=== PATIENT | male | born 1935 | race Caucasian/White ===

== ENCOUNTER 2016-07-08 12:41 | Inpatient (IN) ==
[2016-07-08] MEDS ORDERED: 0.9 % Sodium Chloride 1,000 ML IVC ONE ×2 (13:22→14:51)
--- NOTE | 2016-07-08 13:43 | Emergency Department Note ---
Disposition Clinical Impression: HCAP (healthcare-associated pneumonia), TREASURE (acute kidney injury), Elevated troponin, ST segment changes on electrocardiogram Disposition: Admitted As Inpatient Condition: Good Referrals: Silver Shields MD [Primary Care Provider] - Forms: ED Satisfaction Letter Weakness HPI - General Chief complaint: ED Weakness Stated complaint: Generalized Weakness Time Seen by Provider: 07/08/16 13:14 Source: patient Mode of arrival: private vehicle Limitations: no limitations Nursing Notes Reviewed: Yes Vital Signs Reviewed: Yes - History of Present Illness HPI Narrative: 80-year-old male history of esophageal adenocarcinoma currently under chemotherapy for the last 2 weeks who presents to the ER due to generalized weakness. Patient reports he had his last treatment 2 days ago and has felt unwell ever since. Reports that he has had a runny nose recently. Patient states that he has had no appetite since the chemotherapy. He has been nauseated but no episodes of vomiting. No fevers that he knows of at home. No chest pain. Patient reports he has had one episode of radiation. No sick contacts. No other complaints. Pt Subjective Complaint: generalized weakness/fatigue Onset (ago): day(s) (2) Duration: constant Location: generalized Migration: none Pain Severity: none Pain Scale: 0 Improves with: none Worsens with: none Context: other (Recently started chemotherapy 2 weeks ago) Associated symptoms: Reports: nausea/vomiting. Denies: chest pain, fever/chills , shortness of breath - Related Data Home Medications Medication Instructions Recorded Confirmed Albuterol Sulfate [Albuterol 2 puff IH Q4H PRN 12/08/14 07/08/16 Inhaler] Aspirin Enteric Coated [Aspirin EC] 81 mg PO QAM 12/08/14 07/08/16 Cholecalciferol (Vitamin D3) 2,000 unit PO QAM 12/08/14 07/08/16 [Vitamin D3] Clopidogrel [Plavix] 75 mg PO QAM 12/08/14 07/08/16 Rosuvastatin [Crestor] 10 mg PO QAM 12/08/14 07/08/16 Furosemide [Lasix] 40 mg PO DAILY 09/01/15 07/08/16 Lisinopril [Zestril] 5 mg PO DAILY 09/01/15 07/08/16 Isosorbide MONOnitrate (24 HR) 30 mg PO DAILY 02/25/16 07/08/16 [Imdur] Nitroglycerin 0.4 mg SL Q5MIN PRN 02/25/16 07/08/16 Spironolactone [Aldactone] 12.5 mg PO DAILY 02/25/16 07/08/16 Acetylcysteine 600 mg PO TID 03/25/16 07/08/16 [G-Xvxztr-c-Cysteine] Allopurinol [Zyloprim 300 MG] 100 mg PO DAILY 05/26/16 07/08/16 Budesonide/Formoterol 160/4.5 2 puff IH BIDR 05/26/16 07/08/16 [Symbicort 160/4.5] Omeprazole [PriLOSEC] 20 mg PO BID 05/26/16 07/08/16 Metoprolol [Lopressor] 25 mg PO BID 06/13/16 07/08/16 Sennosides/Docusate Sodium 1 each PO BID 06/13/16 07/08/16 [Senna-S Tablet] Previous Rx's Medication Instructions Recorded Lactose-Reduced Food [Ensure Plus] 1 bottle PO TID #90 can 06/01/16 Magic Mouthwash 10 ml PO Q4H PRN #240 ml 06/15/16 Prochlorperazine Maleate 10 mg PO Q6HR PRN #40 tablet 06/15/16 [Compazine] Lidocaine/Prilocaine CREAM [Emla] 5 gm TP AD #1 tube 06/24/16 Ondansetron [Zofran] 8 mg PO Q8HR PRN #60 tablet 06/24/16 Allergies Allergy/AdvReac Type Severity Reaction Status Date / Time No Known Allergies Allergy Verified 06/23/16 10:54 All systems ED: reviewed and negative except as stated. Constitutional: Reports: weakness. Denies: fever, chills ENT ED: Reports: other (Rhinorrhea) Cardiovascular: Denies: chest pain Respiratory: Denies: cough, dyspnea Gastrointestinal: Reports: nausea. Denies: abdominal pain, vomiting, diarrhea Past Medical History - Past Medical History Attestation: Yes The following information was validated with the patient. Source: patient Medical history: Reports: cancer, cardiomyopathy, CHF, COPD, coronary artery disease, diabetes, GERD, hyperlipidemia, hypertension, myocardial infarction, peripheral artery disease, TIA, valvular heart disease Surgical history: Reports: carotid endarterectomy, coronary bypass (CABG) Psychiatric history: Reports: no psych history - Social History Smoking Status: Current every day smoker Smokeless Tobacco Status: No Alcohol use: Reports: none Drug use: Reports: none Physical Exam - General Limitations: no limitations General appearance: alert, in no apparent distress - Head Head exam: atraumatic, normocephalic, normal inspection - Eye Eye exam: Present: normal appearance, EOMI - ENT ENT exam: normal exam - Neck Neck exam: Present: normal inspection - Chest Chest inspection: Present: normal inspection, symmetric chest wall rise - Respiratory Respiratory exam: Present: normal lung sounds bilaterally - Cardiovascular Cardiovascular exam: Present: regular rate, normal rhythm, normal heart sounds - Abdominal Exam Abdominal exam: Present: soft, Non-Tender. Absent: tenderness - Extremities Exam Extremities exam: Present: normal inspection, full ROM - Expanded Upper Extremity Exam Shoulder exam: Present: normal inspection, full ROM Arm exam: Present: normal inspection, full ROM Elbow exam: Present: normal inspection, full ROM Forearm/Wrist exam: Present: normal inspection, full ROM Hand exam: Present: normal inspection, full ROM - Expanded Lower Extremity Exam Hip/Pelvis exam: Present: normal inspection, full ROM Upper leg exam: Present: normal inspection, full ROM Knee exam: Present: normal inspection, full ROM Lower leg exam: Present: normal inspection, full ROM Ankle exam: Present: normal inspection, full ROM Foot/toe exam: Present: normal inspection, full ROM - Neurological Exam Neurological exam: Present: alert - Psychiatric Psychiatric exam: Present: normal affect, normal mood - Skin Skin exam: Present: warm, dry, intact, normal color Course Course Narrative: Patient seen and examined. Vital signs reviewed. He is slightly hypertensive here. - Reevaluation(s) Reevaluation #1: Discussed results of imaging and lab work with the patient. - Consultations Consultation #1: I spoke with the on-call branch banker Dr. Luevano. Discussed patient's history, EKG findings and troponin level. He reports not to heparinize the patient at this time. Vital Signs Temperature 98.5 F 07/08/16 12:42 Pulse Rate 87 07/08/16 12:42 Respiratory Rate 18 07/08/16 12:42 Blood Pressure 82/49 07/08/16 12:42 O2 Sat by Pulse Oximetry 94 L 07/08/16 12:42 Temperature 98.5 F 07/08/16 12:42 Pulse Rate 97 07/08/16 16:30 Respiratory Rate 18 07/08/16 16:30 Blood Pressure 97/61 07/08/16 16:30 O2 Sat by Pulse Oximetry 98 07/08/16 16:30 Oxygen Delivery Oxygen Delivery Nasal Cannula Weakness - MDM Narrative Medical decision making narrative: 80-year-old male history of esophageal cancer currently on chemotherapy who presents to the ER due to generalized weakness for 2 days in duration. Patient has been slightly hypotensive here as well as tachycardic. Blood pressure was somewhat responsive to IV fluid resuscitation. Chest x-ray shows new opacities concerning for metastatic disease versus multifocal pneumonia. Given his recent weakness runny nose and cough we will treat him for healthcare associated pneumonia. Patient also does have an acute kidney injury with elevation in his creatinine. Patient admitted to the hospitalist service for further management. - Lab Data Lab results reviewed: Yes I reviewed the patient's lab results. Result diagrams: 07/08/16 13:45 07/08/16 13:45 Lab Results 07/08/16 07/08/16 07/08/16 Range/Units 13:45 13:45 13:45 WBC 11.4 H (4.3-11.1) K/mcL RBC 3.66 L (4.19-5.50) M/mcL Hgb 9.7 L (12.9-16.9) g/dL Hct 31.4 L (37.5-50.1) % MCV 85.8 (83.0-100.0) fL MCH 26.5 L (28.0-33.3) pg MCHC 30.9 L (31.6-35.5) g/dL RDW 17.2 H (11.5-14.5) % Plt Count 218 (140-400) K/mcL MPV 11.7 (9.4-12.4) fL Immature Gran % 1.6 (0-4) % Seg Neutrophils % 92.7 % Lymphocytes % 2.6 % Monocytes % 2.3 % Eosinophils % 0.4 % Basophils % 0.4 % Neutrophils # 10.6 H (1.6-8.9) K/mcL Lymphocytes # 0.3 L (0.6-4.6) K/mcL Monocytes # 0.3 (0.0-1.3) K/mcL Eosinophils # 0.1 (0.0-0.6) K/mcL Basophils # 0.1 (0.0-0.2) K/mcL Hyposegmented Neuts Present A (Not Present) Platelet Estimate Normal (Normal) Macrocytosis Present A (Not Present) Sodium 135 L (136-145) mEq/L Potassium 5.1 H (3.5-4.5) mEq/L Chloride 108 (98-109) mEq/L Carbon Dioxide 14 L (19-29) mEq/L BUN 108 H (8-26) mg/dL Creatinine 3.36 H (0.72-1.25) mg/dL Est GFR ( Amer) 22 L (> 60) Est GFR (Non-Af Amer) 18 L (> 60) BUN/Creatinine Ratio 32 H (6-26) Glucose 117 H (70-99) mg/dL Calculated Osmolality 315 H (280-300) Calcium 9.0 (8.6-10.8) mg/dL Total Bilirubin 0.4 (0.2-1.2) mg/dL AST 12 (5-34) Units/L ALT 12 (0-55) Units/L Alkaline Phosphatase 60 (38-126) Units/L Troponin I 0.07 H* (0-0.03) ng/mL Serum Total Protein 7.2 (6.0-8.3) g/dL Albumin 3.1 L (3.5-5.0) g/dL Globulin 4.1 H (2.4-3.5) g/dL Albumin/Globulin Ratio 0.8 L (1.1-2.2) Urine Color (Yellow) Urine Clarity (Clear) Urine pH (5.0-8.0) pH Units Ur Specific [place] (1.010-1.025) Urine Protein (Neg-Trace) mg/dL Urine Glucose (UA) (Normal) mg/dL Urine Ketones (Negative) mg/dL Urine Blood (Negative) Urine Nitrite (Negative) Urine Bilirubin (Negative) Urine Urobilinogen (Normal) mg/dL Ur Leukocyte Esterase (Negative) Urine Microscopic RBC (0-3) per hpf Urine Microscopic WBC (0-3) per hpf Ur Squamous Epith Cells (None-Few) per lpf Urine Bacteria (None-Few) per hpf Ur Culture Indicated? (NO) 07/08/16 Range/Units 14:11 WBC (4.3-11.1) K/mcL RBC (4.19-5.50) M/mcL Hgb (12.9-16.9) g/dL Hct (37.5-50.1) % MCV (83.0-100.0) fL MCH (28.0-33.3) pg MCHC (31.6-35.5) g/dL RDW (11.5-14.5) % Plt Count (140-400) K/mcL MPV (9.4-12.4) fL Immature Gran % (0-4) % Seg Neutrophils % % Lymphocytes % % Monocytes % % Eosinophils % % Basophils % % Neutrophils # (1.6-8.9) K/mcL Lymphocytes # (0.6-4.6) K/mcL Monocytes # (0.0-1.3) K/mcL Eosinophils # (0.0-0.6) K/mcL Basophils # (0.0-0.2) K/mcL Hyposegmented Neuts (Not Present) Platelet Estimate (Normal) Macrocytosis (Not Present) Sodium (136-145) mEq/L Potassium (3.5-4.5) mEq/L Chloride (98-109) mEq/L Carbon Dioxide (19-29) mEq/L BUN (8-26) mg/dL Creatinine (0.72-1.25) mg/dL Est GFR ( Amer) (> 60) Est GFR (Non-Af Amer) (> 60) BUN/Creatinine Ratio (6-26) Glucose (70-99) mg/dL Calculated Osmolality (280-300) Calcium (8.6-10.8) mg/dL Total Bilirubin (0.2-1.2) mg/dL AST (5-34) Units/L ALT (0-55) Units/L Alkaline Phosphatase (38-126) Units/L Troponin I (0-0.03) ng/mL Serum Total Protein (6.0-8.3) g/dL Albumin (3.5-5.0) g/dL Globulin (2.4-3.5) g/dL Albumin/Globulin Ratio (1.1-2.2) Urine Color Yellow (Yellow) Urine Clarity Cloudy A (Clear) Urine pH 5.0 (5.0-8.0) pH Units Ur Specific [place] 1.021 (1.010-1.025) Urine Protein Negative (Neg-Trace) mg/dL Urine Glucose (UA) Normal (Normal) mg/dL Urine Ketones Negative (Negative) mg/dL Urine Blood Large H (Negative) Urine Nitrite Negative (Negative) Urine Bilirubin Negative (Negative) Urine Urobilinogen Normal (Normal) mg/dL Ur Leukocyte Esterase Negative (Negative) Urine Microscopic RBC 3-5 H (0-3) per hpf Urine Microscopic WBC 0-3 (0-3) per hpf Ur Squamous Epith Cells Many H (None-Few) per lpf Urine Bacteria None Seen (None-Few) per hpf Ur Culture Indicated? NO (NO) - Radiology Data Radiology results reviewed: Yes I reviewed the patient's radiology results. Chest X-Ray 07/08/16 13:22 IMPRESSION: New nodular airspace disease seen in the left upper and left lower lobes. Metastatic disease needs to be considered. A multifocal pneumonia could give this appearance. D/ / Dank Narvaez MD / Dank Narvaez MD Interpreting Provider: Dank Narvaez MD - EKG Data EKG attestation: Yes I reviewed and interpreted this EKG. EKG results narrative: EKG demonstrates sinus tachycardia with a rate of 1:15. Normal axis. IN interval 189 QRS duration 99 QTC 361. There are T-wave inversions in the lateral leads V4 through V6. ST depression 1 mm in lead V4 and V5. No ST elevations. Changes from previous EKG include T-wave inversions with ST depression in lateral leads. 15:30 EKG demonstrates sinus tachycardia with a rate of 139. IN interval 165 QRS duration 109 QTC 364 T-wave inversions in lateral leads with ST depression in V4 and V5. No ST elevations. No significant changes from previous EKG. S.B.A.R. - S.B.A.R. Situation: Demographics, MOA Background: Presenting Complaint, Relevant PMH, Meds, & Allergies Assessment: Vital Signs, Course and respsone to treatment, Exam Concerns, Patient/Family Expectation, Pertinant Lab Results, Outstanding Labs Recommendation: Barrier(s) to disposition, Recommendation based on pending studies, treatments, or consults Juan Report Given to: Radha Martinez Repor Time: 17:39 Attestation Statement - Attestation Attestation: I personally interviewed and examined this patient and my medical decision- making was reviewed with the ED Resident Physician, Dr. Boothe. I agree with the documented findings, disposition and treatment plan as described in the documentation. Pt is a 80-year-old white male recently diagnosed with esophageal adenocarcinoma. Patient comes in with complaints of generalized weakness with past few days as well as mild shortness of breath. Changes on imaging are consistent with metastatic disease versus pneumonia. We will cover with antibiotics for community-acquired pneumonia. Unable to obtain CT for further information due to elevated serum creatinine. Patient also with positive troponin which may be due to the worsening renal insufficiency. Patient with changes on EKG, seen on prior EKG. Patient's hemodynamic status is improved following IV fluids in the emergency department, at this time patient resting comfortably. We will admit for further evaluation and treatment.
[2016-07-08 13:54] LABS: Basophils % 0.4 %; Eosinophils # 0.1 K/mcL (0.0-0.6); Eosinophils % 0.4 %; Hematocrit 31.4 % (37.5-50.1); Hemoglobin 9.7 g/dL (12.9-16.9); Immature Granulocytes % 1.6 % (0-4); Lymphocytes # 0.3 K/mcL (0.6-4.6); Lymphocytes % 2.6 %; Mean Corpuscular HGB Conc 30.9 g/dL (31.6-35.5); Mean Corpuscular Hemoglobin 26.5 pg (28.0-33.3); Mean Corpuscular Volume 85.8 fL (83.0-100.0); Mean Platelet Volume 11.7 fL (9.4-12.4); Monocytes # 0.3 K/mcL (0.0-1.3); Monocytes % 2.3 %; Neutrophils # 10.6 K/mcL (1.6-8.9); Platelet Count 218 K/mcL (140-400); Red Blood Count 3.66 M/mcL (4.19-5.50); Red Cell Distribution Width 17.2 % (11.5-14.5); Segmented Neutrophils % 92.7 %
[2016-07-08 14:10] LABS: Basophils # 0.1 K/mcL (0.0-0.2)
[2016-07-08 14:11] LABS: Albumin 3.1 g/dL (3.5-5.0); Albumin/Globulin Ratio 0.8 (1.1-2.2); Bilirubin,Total 0.4 mg/dL (0.2-1.2); Globulin 4.1 g/dL (2.4-3.5); Potassium 5.1 mEq/L (3.5-4.5); Total Protein 7.2 g/dL (6.0-8.3)
[2016-07-08 14:27] LABS: Platelet Estimate Normal (Normal)
[2016-07-08 14:28] LABS: Bilirubin,Urine Negative (Negative); Blood,Urine Large (Negative); Clarity,Urine Cloudy (Clear); Color,Urine Yellow (Yellow); Glucose,Urine (UA) Normal (Normal); Ketones,Urine Negative (Negative); Leukocyte Esterase,Urine Negative (Negative); Nitrite,Urine Negative (Negative); Protein,Urine Negative (Neg-Trace); Specific Gravity,Urine 1.021 (1.010-1.025); Urobilinogen,Urine Normal (Normal)
[2016-07-08 14:29] LABS: Macrocytosis Present (Not Present)
[2016-07-08 14:31] LABS: Bacteria,Urine None Seen per hpf (None-Few); Squamous Epithelial Cell,Urine Many per lpf (None-Few); WBC,Urine 0-3 per hpf (0-3)
[2016-07-08] MEDS ORDERED: Levofloxacin 750 MG/150 ML 750 MG/150 ML BAG IVPB ONE (14:49)
[2016-07-08] MEDS ORDERED: Vancomycin 1,250 MG in D5% in Water 250 ML IVPB ONE (14:49)
[2016-07-08] MEDS ORDERED: Piperacillin/Tazobactam 3.375 GM in D5% in Water (Mini-Bag+) 100 ML IVPB ONE (14:49)
[2016-07-08] MEDS ORDERED: Ondansetron 4 MG/2 ML VIAL IVP ONE (18:20)
[2016-07-08] MEDS ORDERED: Hydrocortisone Sodium Succ 100 MG/2 ML VIAL IVP ONE (19:17)
[2016-07-08] MEDS ORDERED: Furosemide 20 MG/2 ML VIAL IVP ONE (19:18)
[2016-07-08] MEDS ORDERED: Norepinephrine 4 MG in D5% in Water 250 ML IVC SCH (19:30)
--- NOTE | 2016-07-08 19:38 | Emergency Department Note ---
Disposition Clinical Impression: HCAP (healthcare-associated pneumonia), TREASURE (acute kidney injury), Elevated troponin, ST segment changes on electrocardiogram Disposition: Admitted As Inpatient Condition: Good Time of Disposition: 19:40 General Adult HPI - General Chief complaint: ED Weakness Stated complaint: Generalized Weakness Time Seen by Provider: 07/08/16 13:14 Source: patient Mode of arrival: ambulatory Limitations: no limitations Nursing Notes Reviewed: Yes Vital Signs Reviewed: Yes - History of Present Illness HPI Narrative: P viral syndrome fever increased Pain Scale: 0 - Related Data Home Medications Medication Instructions Recorded Confirmed Albuterol Sulfate [Albuterol 2 puff IH Q4H PRN 12/08/14 07/08/16 Inhaler] Aspirin Enteric Coated [Aspirin EC] 81 mg PO QAM 12/08/14 07/08/16 Cholecalciferol (Vitamin D3) 2,000 unit PO QAM 12/08/14 07/08/16 [Vitamin D3] Clopidogrel [Plavix] 75 mg PO QAM 12/08/14 07/08/16 Rosuvastatin [Crestor] 10 mg PO QAM 12/08/14 07/08/16 Furosemide [Lasix] 40 mg PO DAILY 09/01/15 07/08/16 Lisinopril [Zestril] 5 mg PO DAILY 09/01/15 07/08/16 Isosorbide MONOnitrate (24 HR) 30 mg PO DAILY 02/25/16 07/08/16 [Imdur] Nitroglycerin 0.4 mg SL Q5MIN PRN 02/25/16 07/08/16 Spironolactone [Aldactone] 12.5 mg PO DAILY 02/25/16 07/08/16 Acetylcysteine 600 mg PO TID 03/25/16 07/08/16 [X-Amkukq-k-Cysteine] Allopurinol [Zyloprim 300 MG] 100 mg PO DAILY 05/26/16 07/08/16 Budesonide/Formoterol 160/4.5 2 puff IH BIDR 05/26/16 07/08/16 [Symbicort 160/4.5] Omeprazole [PriLOSEC] 20 mg PO BID 05/26/16 07/08/16 Metoprolol [Lopressor] 25 mg PO BID 06/13/16 07/08/16 Sennosides/Docusate Sodium 1 each PO BID 06/13/16 07/08/16 [Senna-S Tablet] Previous Rx's Medication Instructions Recorded Lactose-Reduced Food [Ensure Plus] 1 bottle PO TID #90 can 06/01/16 Magic Mouthwash 10 ml PO Q4H PRN #240 ml 06/15/16 Prochlorperazine Maleate 10 mg PO Q6HR PRN #40 tablet 06/15/16 [Compazine] Lidocaine/Prilocaine CREAM [Emla] 5 gm TP AD #1 tube 06/24/16 Ondansetron [Zofran] 8 mg PO Q8HR PRN #60 tablet 06/24/16 Allergies Allergy/AdvReac Type Severity Reaction Status Date / Time No Known Allergies Allergy Verified 06/23/16 10:54 Constitutional: Reports: weakness. Denies: fever, chills ENT ED: Reports: other (Rhinorrhea) Cardiovascular: Denies: chest pain Respiratory: Denies: cough, dyspnea Gastrointestinal: Reports: nausea. Denies: abdominal pain, vomiting, diarrhea Past Medical History - Past Medical History Medical history: Reports: cancer, cardiomyopathy, CHF, COPD, coronary artery disease, diabetes, GERD, hyperlipidemia, hypertension, myocardial infarction, peripheral artery disease, TIA, valvular heart disease Surgical history: Reports: carotid endarterectomy, coronary bypass (CABG) Psychiatric history: Reports: no psych history - Social History Smoking Status: Current every day smoker Smokeless Tobacco Status: No Alcohol use: Reports: none Drug use: Reports: none Physical Exam - General Limitations: no limitations General appearance: alert, in no apparent distress Course Course Narrative: Patient signed out by Dr. pham. Detailed review of medical history presentation described. Patient is currently in treatment of right-sided lung cancer. Noted for possible pneumonia progression of metastases the right lung. Patient has been persistently hypotensive. Evaluate lung status after 2 L of fluid being given. Patient has crackles in his lungs at this time. Patient restarted on Lasix here in the emergency room norepinephrine added on to augment blood pressure. Patient also given stress dose steroids secondary to cancer status. Hospitalist patient this time to inform them of the change in status and recommendation for ICU placement. Family patient on board with this. Medical intervention being provided at this time - Reevaluation(s) Reevaluation #1: Patient discussed with the hospitalist. Detailed review of the patient's presentation symptoms and initial sign out were discussed. Medical augmentation completed by myself in the emergency room. Patient recommended to go to the ICU at this time. Hospitalist agreed. No other recommendations at this point. We will continue to monitor as patient is treated medically at this time for what looks like Hcap With fluid overload and acute kidney insufficiency. Time: 20:43 Vital Signs Temperature 98.5 F 07/08/16 12:42 Pulse Rate 87 07/08/16 12:42 Respiratory Rate 18 07/08/16 12:42 Blood Pressure 82/49 07/08/16 12:42 O2 Sat by Pulse Oximetry 94 L 07/08/16 12:42 Temperature 98.5 F 07/08/16 12:42 Pulse Rate 114 07/08/16 20:41 Respiratory Rate 18 07/08/16 20:41 Blood Pressure 116/63 07/08/16 20:41 O2 Sat by Pulse Oximetry 100 07/08/16 20:41 Oxygen Delivery Oxygen Delivery Nasal Cannula Medical Decision Making - MDM Narrative Medical decision making narrative: Hypotension, pneumonia, increased work of breathing, cancer - Medical Records Medical records reviewed: Yes I reviewed the patient's medical records. - Lab Data Lab results reviewed: Yes I reviewed the patient's lab results. Result diagrams: 07/08/16 13:45 07/08/16 13:45 Lab Results 07/08/16 07/08/16 07/08/16 Range/Units 13:45 13:45 13:45 WBC 11.4 H (4.3-11.1) K/mcL RBC 3.66 L (4.19-5.50) M/mcL Hgb 9.7 L (12.9-16.9) g/dL Hct 31.4 L (37.5-50.1) % MCV 85.8 (83.0-100.0) fL MCH 26.5 L (28.0-33.3) pg MCHC 30.9 L (31.6-35.5) g/dL RDW 17.2 H (11.5-14.5) % Plt Count 218 (140-400) K/mcL MPV 11.7 (9.4-12.4) fL Immature Gran % 1.6 (0-4) % Seg Neutrophils % 92.7 % Lymphocytes % 2.6 % Monocytes % 2.3 % Eosinophils % 0.4 % Basophils % 0.4 % Neutrophils # 10.6 H (1.6-8.9) K/mcL Lymphocytes # 0.3 L (0.6-4.6) K/mcL Monocytes # 0.3 (0.0-1.3) K/mcL Eosinophils # 0.1 (0.0-0.6) K/mcL Basophils # 0.1 (0.0-0.2) K/mcL Hyposegmented Neuts Present A (Not Present) Platelet Estimate Normal (Normal) Macrocytosis Present A (Not Present) Sodium 135 L (136-145) mEq/L Potassium 5.1 H (3.5-4.5) mEq/L Chloride 108 (98-109) mEq/L Carbon Dioxide 14 L (19-29) mEq/L BUN 108 H (8-26) mg/dL Creatinine 3.36 H (0.72-1.25) mg/dL Est GFR ( Amer) 22 L (> 60) Est GFR (Non-Af Amer) 18 L (> 60) BUN/Creatinine Ratio 32 H (6-26) Glucose 117 H (70-99) mg/dL Calculated Osmolality 315 H (280-300) Calcium 9.0 (8.6-10.8) mg/dL Total Bilirubin 0.4 (0.2-1.2) mg/dL AST 12 (5-34) Units/L ALT 12 (0-55) Units/L Alkaline Phosphatase 60 (38-126) Units/L Troponin I 0.07 H* (0-0.03) ng/mL Serum Total Protein 7.2 (6.0-8.3) g/dL Albumin 3.1 L (3.5-5.0) g/dL Globulin 4.1 H (2.4-3.5) g/dL Albumin/Globulin Ratio 0.8 L (1.1-2.2) Urine Color (Yellow) Urine Clarity (Clear) Urine pH (5.0-8.0) pH Units Ur Specific [place] (1.010-1.025) Urine Protein (Neg-Trace) mg/dL Urine Glucose (UA) (Normal) mg/dL Urine Ketones (Negative) mg/dL Urine Blood (Negative) Urine Nitrite (Negative) Urine Bilirubin (Negative) Urine Urobilinogen (Normal) mg/dL Ur Leukocyte Esterase (Negative) Urine Microscopic RBC (0-3) per hpf Urine Microscopic WBC (0-3) per hpf Ur Squamous Epith Cells (None-Few) per lpf Urine Bacteria (None-Few) per hpf Ur Culture Indicated? (NO) 07/08/16 Range/Units 14:11 WBC (4.3-11.1) K/mcL RBC (4.19-5.50) M/mcL Hgb (12.9-16.9) g/dL Hct (37.5-50.1) % MCV (83.0-100.0) fL MCH (28.0-33.3) pg MCHC (31.6-35.5) g/dL RDW (11.5-14.5) % Plt Count (140-400) K/mcL MPV (9.4-12.4) fL Immature Gran % (0-4) % Seg Neutrophils % % Lymphocytes % % Monocytes % % Eosinophils % % Basophils % % Neutrophils # (1.6-8.9) K/mcL Lymphocytes # (0.6-4.6) K/mcL Monocytes # (0.0-1.3) K/mcL Eosinophils # (0.0-0.6) K/mcL Basophils # (0.0-0.2) K/mcL Hyposegmented Neuts (Not Present) Platelet Estimate (Normal) Macrocytosis (Not Present) Sodium (136-145) mEq/L Potassium (3.5-4.5) mEq/L Chloride (98-109) mEq/L Carbon Dioxide (19-29) mEq/L BUN (8-26) mg/dL Creatinine (0.72-1.25) mg/dL Est GFR ( Amer) (> 60) Est GFR (Non-Af Amer) (> 60) BUN/Creatinine Ratio (6-26) Glucose (70-99) mg/dL Calculated Osmolality (280-300) Calcium (8.6-10.8) mg/dL Total Bilirubin (0.2-1.2) mg/dL AST (5-34) Units/L ALT (0-55) Units/L Alkaline Phosphatase (38-126) Units/L Troponin I (0-0.03) ng/mL Serum Total Protein (6.0-8.3) g/dL Albumin (3.5-5.0) g/dL Globulin (2.4-3.5) g/dL Albumin/Globulin Ratio (1.1-2.2) Urine Color Yellow (Yellow) Urine Clarity Cloudy A (Clear) Urine pH 5.0 (5.0-8.0) pH Units Ur Specific [place] 1.021 (1.010-1.025) Urine Protein Negative (Neg-Trace) mg/dL Urine Glucose (UA) Normal (Normal) mg/dL Urine Ketones Negative (Negative) mg/dL Urine Blood Large H (Negative) Urine Nitrite Negative (Negative) Urine Bilirubin Negative (Negative) Urine Urobilinogen Normal (Normal) mg/dL Ur Leukocyte Esterase Negative (Negative) Urine Microscopic RBC 3-5 H (0-3) per hpf Urine Microscopic WBC 0-3 (0-3) per hpf Ur Squamous Epith Cells Many H (None-Few) per lpf Urine Bacteria None Seen (None-Few) per hpf Ur Culture Indicated? NO (NO) - Radiology Data Radiology results reviewed: Yes I reviewed the patient's radiology results. Chest x-ray reviewed showing progression of right-sided pulmonary issues.
--- NOTE | 2016-07-08 22:03 | Internal Med History&Physical ---
Date of Encounter: 07/08/16 Time of Encounter: 22:00 Assessment and Plan (1) HCAP (healthcare-associated pneumonia) Current visit: Yes Status: Acute Chest x-ray concerning for pneumonia versus metastatic disease in the setting of a patient complaining of generalized weakness and on chemotherapy due to esophageal adenocarcinoma. We will continue with broad-spectrum antibiotics and adjust antibiotic therapy according to cultures and or clinical response. We will obtain a CT of the chest without IV contrast to further identify pulmonary infiltrates. Weakness likely multifactorial, anemia, underlying infection, possible side effects of chemotherapy. Obtain testing for Legionella and strep pneumo. Oxygen therapy as needed. DVT prophylaxis. (2) TREASURE (acute kidney injury) Current visit: Yes Status: Acute Worsening kidney function test. Avoid nephrotoxic agents. We will hold MICH inhibitor, spironolactone. Continue monitoring the patient closely. We will give IV fluids, the patient has an appropriate urine output, continue with the Hdez catheter for further monitoring. (3) Elevated troponin Current visit: Yes Status: Acute Mild elevation of troponins in the absence of chest pain, will continue monitoring trend of troponins. Will not start heparin at this point. (4) Esophageal adenocarcinoma Current visit: No Status: Acute (5) Tobacco abuse Current visit: No Status: Chronic (6) Calf pain Current visit: Yes Status: Acute Will obtain a venous duplex to evaluate for possible DVT. Qualifiers: Laterality: right Qualified Code(s): M79.661 - Pain in right lower leg Internal Medicine - H&P: HPI Chief complaint: weakness Admitted From: Emergency Dept Plans for Post Hospital Care: Home History of present illness: Mr. Angel is a 80 year old male with a history of esophageal cancer on chemotherapy at [facility], CAD, 2V CABG (2009), carotid artery stenosis (s/p b/l CEAs), PAD, and COPD. NSTEMI 06/2015 - treated at [facility]. [facility] performed - Cx stented. EF 35-40%, which improved after revascularization to 50 % per records, active smoker. He presented to our emergency department with generalized weakness. He denies fever, chest pain, he is a chronic use of oxygen when necessary. In the emergency department he was found to be both hypotensive and tachycardic. A chest x-ray was obtained and there was a concern for possible pneumonia. The patient was given a dose of vancomycin and Zosyn and was admitted for further management and workup. At some point he hypotension got worse and he was started on Levophed. However, his urine output was appropriate and the Levophed drip was stopped. The patient has also been complaining of pain in his right calf. I examined this patient in the intensive care unit, he was alert, awake, oriented in time, person and partially in place, he thought he was in [place]. He was in no respiratory distress however his heart rate was in the 120s. Past Med Surg Social Fam HX - Past Medical History Medical history: cancer, cardiomyopathy, CHF, COPD, coronary artery disease, diabetes, GERD, hyperlipidemia, hypertension, myocardial infarction, peripheral artery disease, TIA, valvular heart disease Psychiatric history: no psych history - Past Surgical History Surgical History: carotid endarterectomy, coronary bypass (CABG) - Social History Smoking Status: Current every day smoker Smokeless Tobacco Status: No Alcohol use: none Drug use: none - Family History Father Hx Family Cancer: Yes Mother Living Status: Hx Family Cardiac Disorders: No Hx Family Respiratory Disorders: No Hx Family Cancer: Yes (brain tumor) Internal Medicine - H&P: Meds Albuterol Sulfate [Albuterol Inhaler] 2 puff IH Q4H PRN 12/08/14 [History] Aspirin Enteric Coated [Aspirin EC] 81 mg PO QAM 12/08/14 [History] Cholecalciferol (Vitamin D3) [Vitamin D3] 2,000 unit PO QAM 12/08/14 [History] Clopidogrel [Plavix] 75 mg PO QAM 12/08/14 [History] Rosuvastatin [Crestor] 10 mg PO QAM 12/08/14 [History] Furosemide [Lasix] 40 mg PO DAILY 09/01/15 [History] Lisinopril [Zestril] 5 mg PO DAILY 09/01/15 [History] Isosorbide MONOnitrate (24 HR) [Imdur] 30 mg PO DAILY 02/25/16 [History] Nitroglycerin 0.4 mg SL Q5MIN PRN 02/25/16 [History] Spironolactone [Aldactone] 12.5 mg PO DAILY 02/25/16 [History] Acetylcysteine [Q-Szqjcn-h-Cysteine] 600 mg PO TID 03/25/16 [History] Allopurinol [Zyloprim 300 MG] 100 mg PO DAILY 05/26/16 [History] Budesonide/Formoterol 160/4.5 [Symbicort 160/4.5] 2 puff IH BIDR 05/26/16 [ History] Omeprazole [PriLOSEC] 20 mg PO BID 05/26/16 [History] Lactose-Reduced Food [Ensure Plus] 1 bottle PO TID #90 can 06/01/16 [Rx] Metoprolol [Lopressor] 25 mg PO BID 06/13/16 [History] Sennosides/Docusate Sodium [Senna-S Tablet] 1 each PO BID 06/13/16 [History] Magic Mouthwash 10 ml PO Q4H PRN #240 ml 06/15/16 [Rx] Prochlorperazine Maleate [Compazine] 10 mg PO Q6HR PRN #40 tablet 06/15/16 [Rx] Lidocaine/Prilocaine CREAM [Emla] 5 gm TP AD #1 tube 06/24/16 [Rx] Ondansetron [Zofran] 8 mg PO Q8HR PRN #60 tablet 06/24/16 [Rx] Allergies No Known Allergies Allergy (Verified 06/23/16 10:54) All Systems PM: A 10-system review of systems was performed and is negative for pertinent findings except as documented above in the HPI. - Constitutional Constitutional: as per HPI, lethargy, no chills, no fever(s), no night sweats - EENT Eyes: as per HPI, no change in vision, no discharge, no pain, no photophobia Ears: as per HPI, no ear discharge, no ear pain, no tinnitus Nose, mouth and throat: as per HPI, no dysphagia, no nasal discharge, no neck pain, no sore throat - Breasts Breasts: as per HPI - Cardiovascular Cardiovascular ROS IM: as per HPI, dyspnea on exertion, no chest pain, no diaphoresis, no dyspnea, no lightheadedness, no palpitations, no syncope - Respiratory Respiratory: as per HPI, cough, dyspnea on exertion, no dyspnea, no wheezing, no excessive phlegm production - Gastrointestinal Gastrointestinal: as per HPI, no abdominal pain, no diarrhea, no hematemesis, no hematochezia, no melena, no nausea, no vomiting - Genitourinary Genitourinary ROS male: as per HPI - Musculoskeletal Musculoskeletal ROS IM: as per HPI, no numbness, no tingling - Integumentary Integumentary IM: as per HPI, no rash, no unusual bruising - Neurological Neurological ROS: as per HPI, no confusion, no convulsions, no focal weakness, no numbness, no tingling, no tremor(s) - Psychiatric Psychiatric: as per HPI - Endocrine Endocrine IM: as per HPI - Hematologic/Lymphatic Hematologic/Lymphatic: as per HPI, no easy bruising - Allergic/Immunologic Allergic/Immunologic: as per HPI - Constitutional Vitals: Temp Pulse Resp BP Pulse Ox 98.5 F 114 18 116/63 100 07/08/16 12:42 07/08/16 20:41 07/08/16 20:41 07/08/16 20:41 07/08/16 20:41 General appearance: Present: cooperative, mild distress, A&O X 3, pleasant - Head Head exam: Present: atraumatic, normocephalic - Eye Eye exam: Present: PERRL, conjuntiva pink, sclera anicteric Pupils: Present: PERRL - Neck Neck exam general surgery: Present: supple, trachea midline. Absent: lymphadenopathy - Respiratory Respiratory exam: Present: decreased breath sounds. Absent: accessory muscle use, rales, rhonchi, wheezes - Cardiovascular Cardiovascular exam: Present: RRR, +S1, +S2. Absent: diastolic murmur, gallop, rubs, systolic murmur - GI/Abdominal GI/Abdominal exam: Present: normal bowel sounds, soft, no peritoneal signs. Absent: distended, tenderness - Extremities Exam Extremities exam: Present: warm, radial pulses palpable and symetrical. Absent : calf tenderness, cyanotic, pedal edema - Neurological Exam Neurological exam: Present: CN II-XII intact, oriented X3, no focal deficits. Absent: pronater drift, facial droop, speech deficit - Skin Skin exam: Present: dry, intact Internal Med - H&P Results - Labs CBC & Chem 7: 07/08/16 13:45 07/08/16 13:45 - Impressions ITS Impressions Chest X-Ray 07/08/16 19:18 IMPRESSION: Stable exam D/ / Akira Mauro MD / Akira Mauro MD Interpreting Provider: Akira Mauro MD
[2016-07-08] MEDS ORDERED: *HR* Morphine 2 MG/ML SYRINGE IVP PRN (22:14)
[2016-07-08] MEDS ORDERED: Naloxone 0.4 MG/ML INJ IVP PRN (22:14)
[2016-07-08] MEDS ORDERED: Acetaminophen 325 MG TABLET PO PRN (22:14)
[2016-07-08] MEDS ORDERED: Ondansetron 4 MG/2 ML VIAL IVP PRN (22:14)
[2016-07-08] MEDS ORDERED: Ipratropium/Albuterol Neb 3 ML IH PRN (22:23)
[2016-07-08] MEDS ORDERED: Vancomycin (wt based) 1,000 MG VIAL IVPB SCH (23:00)
[2016-07-08] MEDS: 0.9 % Sodium Chloride 1,000 ML IVC SCH (23:02)
[2016-07-08 23:35] LABS: Potassium,Urine 28.1 mEq/L
[2016-07-09] MEDS ORDERED: Dextrose Gel 15 GM PO PRN ×4 (03:17→12:35)
[2016-07-09] MEDS ORDERED: *HR* Dextrose 50 % in Water (Syg) 50 ML SYRINGE IVP PRN ×2 (03:17→12:35)
[2016-07-09] MEDS ORDERED: D5% in Water 1,000 ML IVC PRN ×2 (03:17→12:35)
[2016-07-09 04:19] LABS: Basophils % 0.2 %; Eosinophils % 0.2 %; Hematocrit 25.6 % (37.5-50.1); Lymphocytes # 0.1 K/mcL (0.6-4.6); Mean Corpuscular HGB Conc 30.5 g/dL (31.6-35.5); Mean Corpuscular Hemoglobin 26.3 pg (28.0-33.3); Mean Corpuscular Volume 86.2 fL (83.0-100.0); Mean Platelet Volume 12.3 fL (9.4-12.4); Monocytes # 0.2 K/mcL (0.0-1.3); Monocytes % 3.2 %; Neutrophils # 4.6 K/mcL (1.6-8.9); Platelet Count 168 K/mcL (140-400); Red Blood Count 2.97 M/mcL (4.19-5.50); Red Cell Distribution Width 17.3 % (11.5-14.5); Segmented Neutrophils % 92.4 %
[2016-07-09 04:27] LABS: Hemoglobin 7.8 g/dL (12.9-16.9)
[2016-07-09 04:30] LABS: Albumin 2.5 g/dL (3.5-5.0); Albumin/Globulin Ratio 0.7 (1.1-2.2); Bilirubin,Direct 0.3 mg/dL (0.0-0.5); Bilirubin,Indirect 0.2 mg/dL (0.0-1.2); Bilirubin,Total 0.5 mg/dL (0.2-1.2); Calcium 8.3 mg/dL (8.6-10.8); Globulin 3.4 g/dL (2.4-3.5); Magnesium 1.6 mg/dL (1.6-2.6); Potassium 5.1 mEq/L (3.5-4.5); Total Protein 5.9 g/dL (6.0-8.3)
[2016-07-09 04:47] LABS: Anisocytosis 1+ (Not Present); Ovalocytes 1+ (Not Present); Poikilocytosis 1+ (Not Present)
[2016-07-09 04:49] LABS: Platelet Estimate Normal (Normal)
[2016-07-09 06:00] LABS: Hepatitis A Antibody IgM Nonreactive (Nonreactive); Hepatitis B Core IgM Nonreactive (Nonreactive); Hepatitis B Surface Antigen Nonreactive (Nonreactive); Hepatitis C Virus Antibody Nonreactive (Nonreactive)
[2016-07-09] MEDS ORDERED: *HR* Heparin 5,000 UNIT/ML VIAL SQ SCH (06:00)
[2016-07-09] MEDS: Insulin LISPRO 300 UNITS/3 ML VIAL SQ SCH ×4 (07:44→22:22)
[2016-07-09] MEDS ORDERED: Cholecalciferol (D-3) 1,000 UNIT TABLET PO SCH (09:00)
[2016-07-09] MEDS ORDERED: Aspirin Enteric Coated 81 MG Tablet PO SCH (09:00)
--- NOTE | 2016-07-09 10:15 | Oncology Inp Consult Note ---
Date of Encounter: 07/09/16 Time of Encounter: 12:00 Assessment and Plan (1) Esophageal adenocarcinoma Status: Chronic Assessment and plan: uT2N0, started chemotherapy and radiation-recently, s/p first wk of carbo/taxol- -Rx on hold due to hospitalization. Patient had cancelled tradiation appts himself due to feeling poorly. ARF/hx CKD-on IVF s/p chemotherapy and dehydration. Hemodil-change in CBCD noted, post chemotherapy, transfuse if needed. Denies dysphagia. On IV vanc/zosyn for pneumonia/chest infiltrates, off levophed. Continue antibiotics, monitoring labs. Restart taxol/RT after discharge home. Plan was discussed bedside with patient - Data of Consult Requesting Physician: Rolo Zambrano Primary Care Provider: Silver Shields MD - Consult Narrative Reason for consult: Dehydration, esophageal cancer History of present illness: Mr. Angel is a 80 year old male medical history significant for congestive heart failure, hypertension, emphysema, chronic kidney disease with history of Mckeon's esophagus and recent diagnosis of esophageal adenocarcinoma, patient has started chemotherapy radiation status post chemotherapy with carboplatin and Taxol week #1 hospitalized with the declining general condition. Oral intake nausea serum creatinine was found to be elevated from baseline of 1.6 to 2 upto 3. X-ray and a CT scan showed chronic mediastinal lymphadenopathy unchanged increased right basal and lingular opacity suspicious for pneumonia. Patient has had a chronic cough denies any recent worsening he denies any worsening of shortness of breath or chest pain. He is able to eat normally this a.m. he denies any nausea he denies any chest pain. Hemoglobin has declined to 7.8 as well as other counts. Serum creatinine has slightly improved with hydration. Patient had required small doses of Levophed and was hospitalized to the intensive care unit. Past Med Surg Social Fam HX - Past Medical History Medical history: cancer, cardiomyopathy, CHF, COPD, coronary artery disease, diabetes, GERD, hyperlipidemia, hypertension, myocardial infarction, peripheral artery disease, TIA, valvular heart disease Psychiatric history: no psych history - Past Surgical History Surgical History: carotid endarterectomy, coronary bypass (CABG) - Social History Smoking Status: Current every day smoker Smokeless Tobacco Status: No Alcohol use: none Drug use: none - Family History Father Hx Family Cancer: Yes Mother Living Status: Hx Family Cardiac Disorders: No Hx Family Respiratory Disorders: No Hx Family Cancer: Yes (brain tumor) Medications and Allergies Albuterol Sulfate [Albuterol Inhaler] 2 puff IH Q4H PRN 12/08/14 [History] Aspirin Enteric Coated [Aspirin EC] 81 mg PO QAM 12/08/14 [History] Cholecalciferol (Vitamin D3) [Vitamin D3] 2,000 unit PO QAM 12/08/14 [History] Clopidogrel [Plavix] 75 mg PO QAM 12/08/14 [History] Rosuvastatin [Crestor] 10 mg PO QAM 12/08/14 [History] Furosemide [Lasix] 40 mg PO DAILY 09/01/15 [History] Lisinopril [Zestril] 5 mg PO DAILY 09/01/15 [History] Isosorbide MONOnitrate (24 HR) [Imdur] 30 mg PO DAILY 02/25/16 [History] Nitroglycerin 0.4 mg SL Q5MIN PRN 02/25/16 [History] Spironolactone [Aldactone] 12.5 mg PO DAILY 02/25/16 [History] Acetylcysteine [E-Proczv-o-Cysteine] 600 mg PO TID 03/25/16 [History] Allopurinol [Zyloprim 300 MG] 100 mg PO DAILY 05/26/16 [History] Budesonide/Formoterol 160/4.5 [Symbicort 160/4.5] 2 puff IH BIDR 05/26/16 [ History] Omeprazole [PriLOSEC] 20 mg PO BID 05/26/16 [History] Lactose-Reduced Food [Ensure Plus] 1 bottle PO TID #90 can 06/01/16 [Rx] Metoprolol [Lopressor] 25 mg PO BID 06/13/16 [History] Sennosides/Docusate Sodium [Senna-S Tablet] 1 each PO BID 06/13/16 [History] Magic Mouthwash 10 ml PO Q4H PRN #240 ml 06/15/16 [Rx] Prochlorperazine Maleate [Compazine] 10 mg PO Q6HR PRN #40 tablet 06/15/16 [Rx] Lidocaine/Prilocaine CREAM [Emla] 5 gm TP AD #1 tube 06/24/16 [Rx] Ondansetron [Zofran] 8 mg PO Q8HR PRN #60 tablet 06/24/16 [Rx] Allergies No Known Allergies Allergy (Verified 06/23/16 10:54) Review of systems: Feels quite well this AM. ROS as above Oncology - Exam - Constitutional Vitals: Temp Pulse Resp BP Pulse Ox 98.5 F 106 20 121/55 98 07/09/16 08:00 07/09/16 09:00 07/09/16 09:00 07/09/16 09:00 07/09/16 09:00 General appearance: average body habitus - Head Head exam: Present: atraumatic - Eye Eye exam: Present: sclera anicteric - ENT ENT exam: Present: mucous membranes dry - Neck Neck exam: Present: full ROM - Respiratory Respiratory exam: Present: CTAB - Cardiovascular Cardiovascular exam: Present: +S1, +S2 - GI/Abdominal GI/Abdominal exam: Present: normal bowel sounds, soft - Extremities Exam Extremities exam: Present: normal inspection - Neurological Exam Neurological exam: Present: alert, CN II-XII intact, oriented X3 Oncology - Results - Labs Labs: Short CBC 07/09/16 Range/Units 04:00 WBC 5.0 D (4.3-11.1) K/mcL Hgb 7.8 L D (12.9-16.9) g/dL Hct 25.6 L (37.5-50.1) % Plt Count 168 (140-400) K/mcL Neutrophils # 4.6 (1.6-8.9) K/mcL BMP 07/09/16 04:00 Sodium 135 L Potassium 5.1 H Chloride 113 H Carbon Dioxide 13 L BUN 78 H D Creatinine 2.22 H Glucose 101 H Calcium 8.3 L Cardiac Enzymes 07/09/16 Range/Units 04:00 Troponin I 0.06 H* (0-0.03) ng/mL Liver Function 07/09/16 Range/Units 04:00 Total Bilirubin 0.5 (0.2-1.2) mg/dL Direct Bilirubin 0.3 (0.0-0.5) mg/dL AST 13 (5-34) Units/L ALT 12 (0-55) Units/L Alkaline Phosphatase 45 (38-126) Units/L Albumin 2.5 L (3.5-5.0) g/dL Consult Discharge Plan - Plan Referrals: Silver Shields MD [Primary Care Provider] -
[2016-07-09] MEDS: 0.9 % Sodium Chloride 1,000 ML IVC SCH (10:25)
[2016-07-09] MEDS ORDERED: Piperacillin/Tazobactam 3.375 GM in D5% in Water (Mini-Bag+) 100 ML IVPB SCH ×3 (11:00→15:00)
[2016-07-09] MEDS ORDERED: Norepinephrine 4 MG in D5% in Water 250 ML IVC SCH (12:35)
[2016-07-09] MEDS ORDERED: Naloxone 0.4 MG/ML INJ IVP PRN (12:35)
[2016-07-09] MEDS ORDERED: Ondansetron 4 MG/2 ML VIAL IVP PRN (12:35)
[2016-07-09] MEDS ORDERED: Ipratropium/Albuterol Neb 3 ML IH PRN (12:35)
[2016-07-09] MEDS ORDERED: *HR* Morphine 2 MG/ML SYRINGE IVP PRN (12:35)
[2016-07-09] MEDS ORDERED: 0.9 % Sodium Chloride 1,000 ML IVC SCH (12:35)
[2016-07-09] MEDS ORDERED: Acetaminophen 325 MG TABLET PO PRN (12:35)
[2016-07-09] MEDS: Vancomycin 750 MG in D5% in Water 250 ML IVPB SCH (17:30)
[2016-07-09] MEDS: *HR* Heparin 5,000 UNIT/ML VIAL SQ SCH (17:30)
[2016-07-09] MEDS: Piperacillin/Tazobactam 3.375 GM in D5% in Water (Mini-Bag+) 100 ML IVPB SCH (17:31)
--- NOTE | 2016-07-09 18:53 | Internal Med Progress Note ---
Date of Encounter: 07/09/16 Time of Encounter: 08:00 - Assessment and plan (1) HCAP (healthcare-associated pneumonia) Current Visit: Yes Status: Acute (2) TREASURE (acute kidney injury) Current Visit: Yes Status: Acute (3) Elevated troponin Current Visit: Yes Status: Acute (4) HTN (hypertension) Current Visit: No Status: Chronic Qualifiers: Hypertension type: essential hypertension Qualified Code(s): I10 - Essential (primary) hypertension (5) PVD (peripheral vascular disease) Current Visit: No Status: Chronic (6) Tobacco abuse Current Visit: No Status: Chronic Assessment and plan: 80 year old male with a history of esophageal cancer on chemotherapy at [facility], CAD, 2V CABG (2009), carotid artery stenosis (s/p b/l CEAs), PAD , and COPD. NSTEMI 06/2015 admitted with geralised weakness and sob. CXR on admission showed pneumonia. HCAP: Given immunocompromised status and recentt hospital admission on tx with Vancomycin and Zosyn as HCAP. Renally dosed. Can deesclate tomorrow if blood c/ s remains negative Genralised weakness: In setting of pneumonia, cancer cachexia. Supportive care Recent NSTEMI: s/p stenting on aspirin and plavix. On BB, statin, ACEI and aldactone micaela records, currently held due to hypotension TREASURE: Creatinine elevated from baseline on admission, prerenal and cytokine mediated in setting of dehyration and pneumonia. Hyperkalemia: Related to TREASURE, Low potassium diet, if remains elevtaed will give kayexalate Calf Pain: Right calf pain, will get doppler if pain persists. Elevated troponin: Demand ischemia and TREASURE could be contributing. No dynamic changes to suggest an acute ischemic event Esophageal adenocarcinoma: Oncology following DVT Prophylaxis: - Time Spent With Patient 25 - 35 minutes - Subjective Interval history: seen and examined at bedside. Patient reports feeling better. SOB has improved. Cough and sputum production better. - Constitutional Vitals: Temp Pulse Resp BP Pulse Ox 98.4 F 105 18 110/48 95 07/09/16 16:17 07/09/16 15:00 07/09/16 14:00 07/09/16 14:00 07/09/16 14:00 General appearance: Present: cooperative, mild distress, A&O X 3, pleasant - Head Head exam: Present: atraumatic, normocephalic - Eye Eye exam: Present: PERRL, conjuntiva pink, sclera anicteric Pupils: Present: PERRL - Neck Neck exam general surgery: Present: supple, trachea midline. Absent: lymphadenopathy - Respiratory Respiratory exam: Present: decreased breath sounds, CTAB, rales. Absent: accessory muscle use, rhonchi, wheezes - Cardiovascular Cardiovascular exam: Present: RRR, +S1, +S2. Absent: diastolic murmur, gallop, rubs, systolic murmur - GI/Abdominal GI/Abdominal exam: Present: normal bowel sounds, soft, no peritoneal signs. Absent: distended, tenderness - Extremities Exam Extremities exam: Present: warm, radial pulses palpable and symetrical. Absent : calf tenderness, cyanotic, pedal edema - Neurological Exam Neurological exam: Present: CN II-XII intact, oriented X3, no focal deficits. Absent: pronater drift, facial droop, speech deficit - Skin Skin exam: Present: dry, intact Internal Medicine: Result - Labs CBC & Chem 7: 07/10/16 04:00 07/10/16 04:00 Labs: Short CBC 07/09/16 Range/Units 04:00 WBC 5.0 D (4.3-11.1) K/mcL Hgb 7.8 L D (12.9-16.9) g/dL Hct 25.6 L (37.5-50.1) % Plt Count 168 (140-400) K/mcL Neutrophils # 4.6 (1.6-8.9) K/mcL BMP 07/09/16 04:00 Sodium 135 L Potassium 5.1 H Chloride 113 H Carbon Dioxide 13 L BUN 78 H D Creatinine 2.22 H Glucose 101 H Calcium 8.3 L Cardiac Enzymes 07/09/16 Range/Units 04:00 Troponin I 0.06 H* (0-0.03) ng/mL Liver Function 07/09/16 Range/Units 04:00 Total Bilirubin 0.5 (0.2-1.2) mg/dL Direct Bilirubin 0.3 (0.0-0.5) mg/dL AST 13 (5-34) Units/L ALT 12 (0-55) Units/L Alkaline Phosphatase 45 (38-126) Units/L Albumin 2.5 L (3.5-5.0) g/dL Consult Discharge Plan - Plan Referrals: Silver Shields MD [Primary Care Provider] -
[2016-07-09] MEDS ORDERED: Insulin LISPRO 300 UNITS/3 ML VIAL SQ SCH (21:00)
[2016-07-10] MEDS: Piperacillin/Tazobactam 3.375 GM in D5% in Water (Mini-Bag+) 100 ML IVPB SCH ×3 (02:28→17:34)
[2016-07-10 04:18] LABS: Hematocrit 22.6 % (37.5-50.1); Hemoglobin 7.1 g/dL (12.9-16.9); Mean Corpuscular HGB Conc 31.4 g/dL (31.6-35.5); Mean Corpuscular Hemoglobin 27.2 pg (28.0-33.3); Mean Corpuscular Volume 86.6 fL (83.0-100.0); Mean Platelet Volume 11.4 fL (9.4-12.4); Platelet Count 149 K/mcL (140-400); Red Blood Count 2.61 M/mcL (4.19-5.50); Red Cell Distribution Width 17.5 % (11.5-14.5)
[2016-07-10 04:29] LABS: Calcium 8.2 mg/dL (8.6-10.8); Potassium 4.5 mEq/L (3.5-4.5)
[2016-07-10 04:43] LABS: Lymphocytes # 0.3 K/mcL (0.6-4.6); Monocytes # 0.3 K/mcL (0.0-1.3); Neutrophils # 3.7 K/mcL (1.6-8.9)
[2016-07-10 04:44] LABS: Anisocytosis 1+ (Not Present); Microcytosis Present (Not Present); Ovalocytes 1+ (Not Present); Platelet Estimate Normal (Normal); Poikilocytosis 1+ (Not Present)
[2016-07-10 04:45] LABS: Polychromasia 1+ (Not Present)
[2016-07-10] MEDS: *HR* Heparin 5,000 UNIT/ML VIAL SQ SCH ×2 (06:18→17:34)
[2016-07-10] MEDS: Insulin LISPRO 300 UNITS/3 ML VIAL SQ SCH ×4 (09:24→21:22)
[2016-07-10] MEDS: Aspirin Enteric Coated 81 MG Tablet PO SCH (09:43)
[2016-07-10] MEDS: Cholecalciferol (D-3) 1,000 UNIT TABLET PO SCH (09:43)
--- NOTE | 2016-07-10 15:39 | Venous Imaging Report ---
LE Venous Duplex Patient Name:Sunil Angel Order Number:[id number] Procedure Date:07/09/2016 Date:1935ge:80 yrs Gender:Male Location:[facility] Room #: IC1 Brigadier:CARA SandhuT Referring MD:Santos Vázquez MD organizational research consultant:Silver Shields MD Reading MD:Sae Cardoso MD Primary Indications:possible DVT Secondary Indications: Risk Factors Yes/No Hx of DVT No Impressions: Normal right lower extremity deep and superficial venous exam. Normal contralateral common femoral vein. Findings Venous Duplex Results: Right: Venous imaging of the lower extremity reveals full patency and normal vessel compressibility of the right distal iliac, right common femoral, right superficial femoral, right popliteal, right posterior tibial, right peroneal and right great saphenous. Doppler signals in the evaluated veins were normal. Left: Venous imaging of the lower extremity reveals full patency and normal vessel compressibility of the left common femoral. Doppler signals in the evaluated veins were normal. Prior Study: No prior study available for comparison. Lower Extremity Venous Duplex Side Vein Compress Spontaneous Flow Augment Diameter (cm) Depth (cm) Right Distal Iliac Normal Yes Phasic Yes Right Common Femoral Normal Yes Phasic Yes Right Superficial Femoral Normal Yes Phasic Yes Right Popliteal Normal Yes Phasic Yes Right Posterior Tibial Normal Yes Phasic Yes Right Peroneal Normal Yes Phasic Yes Right Great Saphenous Normal Yes Phasic Yes Left Common Femoral Normal Yes Phasic Yes Updated by Sae Cardoso MD on 07/10/2016 3:33:48 PM electronically signed on 07/10/2016 3:34:11 PM with status of Final
--- NOTE | 2016-07-10 15:59 | Internal Med Progress Note ---
Date of Encounter: 07/10/16 Time of Encounter: 14:00 - Assessment and plan (1) Pneumonia Current Visit: Yes Status: Acute Assessment and plan: Healthcare associated. Most likely is a gram negative bacteria. Currently on IV abx with slow improvement. Continue IV abx for now. Supportive care and oxygen D/C planning. - ? SNF. Qualifiers: Pneumonia type: due to other aerobic Gram-negative bacteria Laterality: left Lung location: upper lobe of lung Qualified Code(s): J15.6 - Pneumonia due to other aerobic Gram-negative bacteria (2) TREASURE (acute kidney injury) Current Visit: Yes Status: Acute Assessment and plan: Slowly improving with IV fluids. Will continue to monitor and recheck tomorrow. (3) HTN (hypertension) Current Visit: No Status: Chronic Assessment and plan: Continue meds. Qualifiers: Hypertension type: essential hypertension Qualified Code(s): I10 - Essential (primary) hypertension (4) COPD (chronic obstructive pulmonary disease) Current Visit: No Status: Chronic Assessment and plan: Continue respiratory treatments. Qualifiers: COPD type: emphysema Emphysema type: panlobular Qualified Code(s): J43.1 - Panlobular emphysema (5) Esophageal adenocarcinoma Current Visit: No Status: Chronic (6) Anemia Current Visit: Yes Status: Acute Qualifiers: Anemia type: other cause Other causes of anemia: chronic disease, neoplastic Qualified Code(s): D63.0 - Anemia in neoplastic disease (7) Diarrhea Current Visit: Yes Status: Acute Assessment and plan: Check C diff. May just be antibiotic associated. Qualifiers: Diarrhea type: presumed infectious Qualified Code(s): A09 - Infectious gastroenteritis and colitis, unspecified - Subjective Interval history: Mr Angel is currently admitted for pneumonia and TREASURE in the setting of treatment of esophageal adenocarcinoma. He is moderate to high risk due to the potential for worsening respiratory and renal status. Mr. Angel says he is starting to feel better. Less dyspneic. Still coughing. Also having some loose stool today - says it is beginning to be a frequent thing. No fever or chills. No abd pain. - Constitutional Vitals: Temp Pulse Resp BP Pulse Ox 98.3 F 98 16 99/57 96 07/10/16 07:33 07/10/16 07:33 07/10/16 07:33 07/10/16 07:33 07/10/16 07:33 General appearance: Present: cooperative, mild distress, A&O X 3, pleasant - Head Head exam: Present: normocephalic - Eye Eye exam: Present: EOMI, conjuntiva pink - ENT ENT exam: Present: mucous membranes dry - Respiratory Respiratory exam: Present: decreased breath sounds, CTAB. Absent: rhonchi, wheezes - Cardiovascular Cardiovascular exam: Present: RRR. Absent: tachycardia - GI/Abdominal GI/Abdominal exam: Present: hypoactive bowel sounds, soft. Absent: mass, tenderness - Extremities Exam Extremities exam: Present: warm. Absent: joint swelling - Neurological Exam Neurological exam: Present: alert, oriented X3 - Skin Skin exam: Present: dry, warm. Absent: rash Internal Medicine: Result - Labs CBC & Chem 7: 07/10/16 04:00 07/10/16 04:00 Labs: Short CBC 07/10/16 Range/Units 04:00 WBC 4.2 L (4.3-11.1) K/mcL Hgb 7.1 L (12.9-16.9) g/dL Hct 22.6 L (37.5-50.1) % Plt Count 149 (140-400) K/mcL Neutrophils # 3.7 (1.6-8.9) K/mcL BMP 07/10/16 04:00 Sodium 138 Potassium 4.5 Chloride 117 H Carbon Dioxide 14 L BUN 52 H D Creatinine 1.62 H Glucose 90 Calcium 8.2 L Consult Discharge Plan - Plan Referrals: Silver Shields MD [Primary Care Provider] -
[2016-07-10] MEDS: Vancomycin 750 MG in D5% in Water 250 ML IVPB SCH (17:35)
--- NOTE | 2016-07-10 21:06 | Electrocardiograph Report ---
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
[2016-07-11] MEDS: Piperacillin/Tazobactam 3.375 GM in D5% in Water (Mini-Bag+) 100 ML IVPB SCH ×2 (01:31→09:48)
[2016-07-11] MEDS: *HR* Heparin 5,000 UNIT/ML VIAL SQ SCH (05:12)
--- NOTE | 2016-07-11 06:18 | Electrocardiograph Report ---
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
[2016-07-11] MEDS: Aspirin Enteric Coated 81 MG Tablet PO SCH (08:15)
[2016-07-11] MEDS: Insulin LISPRO 300 UNITS/3 ML VIAL SQ SCH ×4 (08:15→22:22)
[2016-07-11] MEDS: Cholecalciferol (D-3) 1,000 UNIT TABLET PO SCH (08:15)
[2016-07-11] MEDS ORDERED: Aminoglycoside Consult 1 EACH MC ONE (08:19)
[2016-07-11] MEDS ORDERED: *HR* OxyCODONE/APAP 5/325 TABLET PO PRN (10:39)
[2016-07-11] MEDS ORDERED: levoFLOXacin 750 MG TABLET PO SCH (10:45)
[2016-07-11] MEDS: levoFLOXacin 750 MG TABLET PO SCH (11:31)
--- NOTE | 2016-07-11 13:08 | Internal Med Progress Note ---
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 Patient currently undergoing chemotherapy and radiation outpatient. (2) TREASURE (acute kidney injury) Current Visit: Yes Status: Acute Assessment and plan: Acute kidney injury improving with current creatinine 1.62 down from 3.36 at time of admission. Review of patient's medical records demonstrates that he has a history of chronic kidney disease likely stage III. Patient tolerating by mouth intake. Cause of acute kidney injury is likely multifactorial with pneumonia, chemotherapy, diarrhea. Plan: - Patient's creatinine improving near baseline. - Patient to continue by mouth intake - Recheck creatinine and GFR in a.m. (3) Pneumonia Current Visit: Yes Status: Acute Assessment and plan: Mr. Angel was admitted with pneumonia, associated with hypoxia, tachycardia. Patient is undergoing chemotherapy and radiation therapy for added no esophageal cancer. Admitting chest CT demonstrated increased right basilar and lingular opacification suspicious for pneumonia. Focal opacities in the left lung apex seen previously in increased in size. This could be due to pneumonia , post radiation changes, underlying neoplastic etiology. Patient improving, no longer needs oxygen, no productive cough, afebrile for greater than 24 hours and vital stable. Plan: - Transition antibiotic coverage to by mouth Levaquin, for which she will continue outpatient. Qualifiers: Pneumonia type: due to other aerobic Gram-negative bacteria Laterality: left Lung location: upper lobe of lung Qualified Code(s): J15.6 - Pneumonia due to other aerobic Gram-negative bacteria (4) Anemia Current Visit: Yes Status: Acute Assessment and plan: Patient admitted with a hemoglobin around 9 and has slowly trended down with yesterday's hemoglobin 7.1. Anemia likely secondary to chemotherapy radiation causing immunosuppression but cannot rule out other causes of bleeding at this time. With the possibility of an acute bleed we will hold anticoagulation at this time. CBC for evaluation of anemia pending. If hemoglobin falls below 7.0 will transfuse 1 unit PRBCs. MCV stable. Plan: - Hold subcutaneous heparin - Repeat CBC - May transfuse 1 unit PRBCs if hemoglobin less than 7.0 Qualifiers: Anemia type: other cause Other causes of anemia: chronic disease, neoplastic Qualified Code(s): D63.0 - Anemia in neoplastic disease (5) HTN (hypertension) Current Visit: No Status: Chronic Assessment and plan: Blood pressure stable, continue to hold antihypertensives. Qualifiers: Hypertension type: essential hypertension Qualified Code(s): I10 - Essential (primary) hypertension (6) COPD (chronic obstructive pulmonary disease) Current Visit: No Status: Chronic Assessment and plan: History of COPD, currently stable. Does not require increased oxygen demand and without productive cough. Plan: - Dual nebs ordered when necessary Qualifiers: COPD type: emphysema Emphysema type: panlobular Qualified Code(s): J43.1 - Panlobular emphysema (7) DVT prophylaxis Current Visit: No Status: Chronic Assessment and plan: Hold heparin subcutaneous. Plan to restart if no findings of acute bleeding, as blood loss may be secondary to immunosuppression. - Subjective Interval history: Mr. Angel has been seen and evaluated at patient bedside this am. He denies any pain, SOB, chest pressure, palpitations, chest pain, blurry vision, headache, abdominal pain, nausea vomiting diarrhea constipation or urinary changes. He says that he is well to go home and would like to be discharged today. He says he lives at home and lives with his who assists him. - Constitutional Vitals: Temp Pulse Resp BP Pulse Ox 98.1 F 92 18 108/66 98 07/11/16 11:41 07/11/16 11:41 07/11/16 11:41 07/11/16 11:41 07/11/16 11:41 General appearance: Present: cooperative, mild distress, A&O X 3, pleasant - Head Head exam: Present: atraumatic, normocephalic - Eye Eye exam: Present: PERRL, conjuntiva pink, sclera anicteric Pupils: Present: PERRL - ENT ENT exam: Present: mucous membranes moist - Neck Neck exam general surgery: Present: supple, trachea midline. Absent: lymphadenopathy - Respiratory Respiratory exam: Present: CTAB. Absent: accessory muscle use, rales, rhonchi, wheezes - Cardiovascular Cardiovascular exam: Present: RRR, +S1, +S2. Absent: diastolic murmur, gallop, rubs, systolic murmur - GI/Abdominal GI/Abdominal exam: Present: normal bowel sounds, soft, no peritoneal signs. Absent: distended, tenderness - Extremities Exam Extremities exam: Present: warm, radial pulses palpable and symetrical. Absent : calf tenderness, cyanotic, pedal edema - Neurological Exam Neurological exam: Present: alert, no focal deficits. Absent: pronater drift, facial droop, speech deficit - Psychiatric Psychiatric exam: Present: normal affect, normal mood Internal Medicine: Result - Labs CBC & Chem 7: 07/10/16 04:00 07/10/16 04:00 Consult Discharge Plan - Plan Referrals: Silver Shields MD [Primary Care Provider] - <Pavel Win - Last Filed: 07/11/16 14:55> - Assessment and plan (1) Pneumonia Current Visit: Yes Status: Acute Qualifiers: Pneumonia type: due to other aerobic Gram-negative bacteria Laterality: left Lung location: upper lobe of lung Qualified Code(s): J15.6 - Pneumonia due to other aerobic Gram-negative bacteria (2) TREASURE (acute kidney injury) Current Visit: Yes Status: Acute (3) HTN (hypertension) Current Visit: No Status: Chronic Qualifiers: Hypertension type: essential hypertension Qualified Code(s): I10 - Essential (primary) hypertension (4) COPD (chronic obstructive pulmonary disease) Current Visit: No Status: Chronic Qualifiers: COPD type: emphysema Emphysema type: panlobular Qualified Code(s): J43.1 - Panlobular emphysema (5) Esophageal adenocarcinoma Current Visit: No Status: Chronic (6) Anemia Current Visit: Yes Status: Acute Qualifiers: Anemia type: other cause Other causes of anemia: chronic disease, neoplastic Qualified Code(s): D63.0 - Anemia in neoplastic disease (7) Diarrhea Current Visit: Yes Status: Resolved Qualifiers: Diarrhea type: presumed infectious Qualified Code(s): A09 - Infectious gastroenteritis and colitis, unspecified - Constitutional Vitals: Temp Pulse Resp BP Pulse Ox 98.1 F 92 18 108/66 98 07/11/16 11:41 07/11/16 11:41 07/11/16 11:41 07/11/16 11:41 07/11/16 11:41 Internal Medicine: Result - Labs CBC & Chem 7: 07/10/16 04:00 07/10/16 04:00 - Attending Attestation I examined this patient and my medical decision-making was reviewed with the Resident Physician on 07/11/16. I agree with the documented findings, disposition and treatment plan as described except to the extent set forth below. Mr. Angel is currently admitted for sepsis (resolved) due to pneumonia in association with COPD and esophageal carcinoma. He is moderate to high risk due to potential for worsening respiratory status. Mr. Angel is up in chair. He says he feels OK. His diarrhea has improved per his report. No fever or chills. BP more stable. Exam Alert. Comfortable Heart reg No wheeze but diminished breath sounds I/P 1. Pneumonia - most likely gram neg 2. TREASURE 3. COPD Daughter feels he is weak and needs to go to rehab. PT/OT eval. Further diagnoses and plan as above.
[2016-07-11 16:07] LABS: Basophils % 0.3 %; Eosinophils # 0.3 K/mcL (0.0-0.6); Eosinophils % 8.5 %; Hematocrit 23.1 % (37.5-50.1); Hemoglobin 7.2 g/dL (12.9-16.9); Lymphocytes # 0.3 K/mcL (0.6-4.6); Mean Corpuscular HGB Conc 31.2 g/dL (31.6-35.5); Mean Corpuscular Hemoglobin 27.1 pg (28.0-33.3); Mean Corpuscular Volume 86.8 fL (83.0-100.0); Monocytes # 0.3 K/mcL (0.0-1.3); Platelet Count 186 K/mcL (140-400); Red Blood Count 2.66 M/mcL (4.19-5.50); Red Cell Distribution Width 17.6 % (11.5-14.5); Segmented Neutrophils % 75.2 %
[2016-07-11 16:42] LABS: Anisocytosis 1+ (Not Present); Platelet Estimate Normal (Normal); Poikilocytosis 1+ (Not Present)
[2016-07-12 06:31] LABS: BUN/Creatinine Ratio 22 (6-26); Blood Urea Nitrogen 25 mg/dL (8-26); Calcium 8.8 mg/dL (8.6-10.8); Carbon Dioxide 12 mEq/L (19-29); Chloride 118 mEq/L (98-109); Glucose 82 mg/dL (70-99); Osmolality,Calculated 289 (280-300); Potassium 4.2 mEq/L (3.5-4.5); Sodium 138 mEq/L (136-145); eGFR For African Americans > 60 (> 60); eGFR For Non-African Americans > 60 (> 60)
[2016-07-12] MEDS: Insulin LISPRO 300 UNITS/3 ML VIAL SQ SCH ×2 (08:21→12:32)
[2016-07-12] MEDS: Cholecalciferol (D-3) 1,000 UNIT TABLET PO SCH (08:22)
[2016-07-12] MEDS: Aspirin Enteric Coated 81 MG Tablet PO SCH (08:22)
[2016-07-12] MEDS: levoFLOXacin 750 MG TABLET PO SCH (10:53)
[2016-07-12 11:27] VITALS: BP 116/73
--- NOTE | 2016-07-12 13:16 | Physician Discharge Referral ---
ExtendedCare Referral Info Transfer To: F Provider in Charge: jed hicks Institutional Level of Care: Intermediate - MR - Transfer Medications Home Medications: Albuterol Sulfate [Albuterol Inhaler] 2 puff IH Q4H PRN 12/08/14 [History] Aspirin Enteric Coated [Aspirin EC] 81 mg PO QAM 12/08/14 [History] Cholecalciferol (Vitamin D3) [Vitamin D3] 2,000 unit PO QAM 12/08/14 [History] Clopidogrel [Plavix] 75 mg PO QAM 12/08/14 [History] Rosuvastatin [Crestor] 10 mg PO QAM 12/08/14 [History] Furosemide [Lasix] 40 mg PO DAILY 09/01/15 [History] Lisinopril [Zestril] 5 mg PO DAILY 09/01/15 [History] Isosorbide MONOnitrate (24 HR) [Imdur] 30 mg PO DAILY 02/25/16 [History] Nitroglycerin 0.4 mg SL Q5MIN PRN 02/25/16 [History] Spironolactone [Aldactone] 12.5 mg PO DAILY 02/25/16 [History] Acetylcysteine [B-Pvuszr-g-Cysteine] 600 mg PO TID 03/25/16 [History] Allopurinol [Zyloprim 300 MG] 100 mg PO DAILY 05/26/16 [History] Budesonide/Formoterol 160/4.5 [Symbicort 160/4.5] 2 puff IH BIDR 05/26/16 [ History] Omeprazole [PriLOSEC] 20 mg PO BID 05/26/16 [History] Lactose-Reduced Food [Ensure Plus] 1 bottle PO TID #90 can 06/01/16 [Rx] Metoprolol [Lopressor] 25 mg PO BID 06/13/16 [History] Sennosides/Docusate Sodium [Senna-S Tablet] 1 each PO BID 06/13/16 [History] Magic Mouthwash 10 ml PO Q4H PRN #240 ml 06/15/16 [Rx] Prochlorperazine Maleate [Compazine] 10 mg PO Q6HR PRN #40 tablet 06/15/16 [Rx] Lidocaine/Prilocaine CREAM [Emla] 5 gm TP AD #1 tube 06/24/16 [Rx] Ondansetron [Zofran] 8 mg PO Q8HR PRN #60 tablet 06/24/16 [Rx] Allergies/Adverse Reactions: Allergies No Known Allergies Allergy (Verified 06/23/16 10:54) - Respiratory Orders Smoking Cessation: Smoking cessation has been advised. For more information, call the [place] Tobacco Quit Line at 4-951-FYND-NOW. - Advance Directives Code Status: Full Code - Mobility Orders Ambulate - Rehabiliation Orders Rehab Potential: Fair Rehab Orders: Evaluation for Physical Therapy, Evaluation for Occupational Therapy - Diet Orders Regular CERTIFICATION: I certify that the transfer of the above named patient to an Extended Care Facility is necessary for the continuing treatment of the diagnosis listed. The above information is true and accurate reflection of patient's current condition. Confidential - Redisclosure prohibited without a patient's written consent.
--- NOTE | 2016-07-12 17:02 | Discharge Summary ---
Date of Encounter: 07/12/16 Time of Encounter: 16:57 - Discharge Diagnosis (1) TREASURE (acute kidney injury) Priority: Primary Status: Acute (2) Pneumonia Priority: Primary Status: Acute Qualifiers: Pneumonia type: due to other aerobic Gram-negative bacteria Laterality: left Lung location: upper lobe of lung Qualified Code(s): J15.6 - Pneumonia due to other aerobic Gram-negative bacteria (3) Esophageal adenocarcinoma Priority: Secondary Status: Chronic - Discharge Medications Prescriptions: Levofloxacin 750 mg PO DAILY #3 tablet Levofloxacin 750 mg PO DAILY #3 tablet Home Medications: Albuterol Sulfate [Albuterol Inhaler] 2 puff IH Q4H PRN 12/08/14 [History] Aspirin Enteric Coated [Aspirin EC] 81 mg PO QAM 12/08/14 [History] Cholecalciferol (Vitamin D3) [Vitamin D3] 2,000 unit PO QAM 12/08/14 [History] Clopidogrel [Plavix] 75 mg PO QAM 12/08/14 [History] Rosuvastatin [Crestor] 10 mg PO QAM 12/08/14 [History] Furosemide [Lasix] 40 mg PO DAILY 09/01/15 [History] Lisinopril [Zestril] 5 mg PO DAILY 09/01/15 [History] Isosorbide MONOnitrate (24 HR) [Imdur] 30 mg PO DAILY 02/25/16 [History] Nitroglycerin 0.4 mg SL Q5MIN PRN 02/25/16 [History] Spironolactone [Aldactone] 12.5 mg PO DAILY 02/25/16 [History] Acetylcysteine [K-Fxyiid-k-Cysteine] 600 mg PO TID 03/25/16 [History] Allopurinol [Zyloprim 300 MG] 100 mg PO DAILY 05/26/16 [History] Budesonide/Formoterol 160/4.5 [Symbicort 160/4.5] 2 puff IH BIDR 05/26/16 [ History] Omeprazole [PriLOSEC] 20 mg PO BID 05/26/16 [History] Lactose-Reduced Food [Ensure Plus] 1 bottle PO TID #90 can 06/01/16 [Rx] Metoprolol [Lopressor] 25 mg PO BID 06/13/16 [History] Sennosides/Docusate Sodium [Senna-S Tablet] 1 each PO BID 06/13/16 [History] Magic Mouthwash 10 ml PO Q4H PRN #240 ml 06/15/16 [Rx] Prochlorperazine Maleate [Compazine] 10 mg PO Q6HR PRN #40 tablet 06/15/16 [Rx] Lidocaine/Prilocaine CREAM [Emla] 5 gm TP AD #1 tube 06/24/16 [Rx] Ondansetron [Zofran] 8 mg PO Q8HR PRN #60 tablet 06/24/16 [Rx] Levofloxacin 750 mg PO DAILY #3 tablet 07/12/16 [Rx] Levofloxacin 750 mg PO DAILY #3 tablet 07/12/16 [Rx] Allergies/Adverse Reactions: Allergies No Known Allergies Allergy (Verified 06/23/16 10:54) Date of admission: 07/09/16 00:01 Primary care physician: Silver Shields MD Consults: 07/11/16 07:22 Consult to Occupational Therapy [CONS] Routine Comment: Evaluate, develop and implement POC Consult to Physical Therapy [CONS] Routine Comment: Evaluate, develop and implement POC 07/11/16 11:02 Consult to Extruder Operator Vertical [CONS] Routine Reason for SW Consult: daughter wants to talk about options for ecf Discharging clinician: Camilo Cabrera Anticipated date of discharge: 07/12/16 - Patient Status Disposition: Transfer SNF Condition: Fair Overall status at discharge: patient is back to baseline - Discharge Instructions Follow Up With: Silver Shields MD [Primary Care Provider] - (Patient will follow up with ECF PCP) - Diet and Activity Activity: as per physical therapy Diet: advance to your usual diet Interval History: Mr. Angel is a 80 year old male medical history significant for congestive heart failure, hypertension, emphysema, chronic kidney disease with history of Mckeon's esophagus and recent diagnosis of esophageal adenocarcinoma, patient has started chemotherapy radiation status post chemotherapy with carboplatin and Taxol week #1 hospitalized with the declining general condition. Patient has had a chronic cough denies any recent worsening he denies any worsening of shortness of breath or chest pain. In the emergency department he was found to be both hypotensive and tachycardic. A chest x-ray was obtained and there was a concern for possible pneumonia. The patient was given a dose of vancomycin and Zosyn and was admitted for further management and workup. At some point the hypotension got worse and he was started on Levophed. However, he was able to be weaned off Levophed drip. the blood cx came back negative, his antibiotics has been de-escalated to levofloxacin. He is able to eat normally this a.m. he denies any nausea he denies any chest pain. HE had TREASURE on admission, Serum creatinine has improved with hydration. HE has improved clinically and hemodynamically stable, he is scheduled for appt at the Cancer center today, will dc him today with oral levoflox and will f/u with oncology as OP. Hospital course: Mr. Angel is a 80 year old male Time spent discussing smoking cessation with patient: more than 10 minutes - Time Spent with Patient Total time spent providing and/or coordinating discharge services: Greater than 30 minutes - Constitutional Vitals: Temp Pulse Resp BP Pulse Ox 98.2 F 95 17 116/73 97 07/12/16 11:00 07/12/16 11:00 07/12/16 11:00 07/12/16 11:00 07/12/16 11:00 General appearance: Present: cooperative, A&O X 3, pleasant, no acute distress Exam: - Head Head exam: Present: atraumatic, normocephalic - Eye Eye exam: Present: PERRL, conjuntiva pink, sclera anicteric Pupils: Present: PERRL - Neck Neck exam general surgery: Present: supple, trachea midline. Absent: lymphadenopathy - Respiratory Respiratory exam: Present: decreased breath sounds. Absent: accessory muscle use, rales, rhonchi, wheezes - Cardiovascular Cardiovascular exam: Present: RRR, +S1, +S2. Absent: diastolic murmur, gallop, rubs, systolic murmur - GI/Abdominal GI/Abdominal exam: Present: normal bowel sounds, soft, no peritoneal signs. Absent: distended, tenderness - Extremities Exam Extremities exam: Present: warm, radial pulses palpable and symetrical. Absent : calf tenderness, cyanotic, pedal edema - Neurological Exam Neurological exam: Present: CN II-XII intact, oriented X3, no focal deficits. Absent: pronater drift, facial droop, speech deficit - Skin Skin exam: Present: dry, intact
== END 2016-07-12 14:00 | DRG 178 ==
LOC: EMEROO 12:41 → 2NENU 12:41 → ICNU 20:57 → SUATTDRO 07-09 00:01 → 2ANU 07-09 23:29
PROVIDERS: ADMIT Nurse Practitioner Family; ATTEND Internal Medicine

== ENCOUNTER 2016-08-02 17:13 | Inpatient (IN) ==
[2016-08-02] MEDS ORDERED: 0.9 % Sodium Chloride 1,000 ML ONE (17:32)
[2016-08-02] MEDS ORDERED: 0.9 % Sodium Chloride 1,000 ML IVC ONE ×3 (17:34→22:33)
--- NOTE | 2016-08-02 17:45 | Emergency Department Note ---
Disposition Clinical Impression: History of throat cancer, Sinus tachycardia, Generalized weakness Disposition: Admitted As Inpatient Referrals: Berlin Zaidi [Primary Care Provider] - Forms: ED Satisfaction Letter Weakness HPI - General Chief complaint: ED Weakness Stated complaint: Weakness, AMS, not able to eat/drink Time Seen by Provider: 08/02/16 17:33 Source: EMS Mode of arrival: EMS Limitations: altered mental status Nursing Notes Reviewed: Yes Vital Signs Reviewed: Yes - History of Present Illness HPI Narrative: 80-year-old male with a cough located medical history including diagnosis of esophageal cancer back in April presents for evaluation of generalized weakness, altered mental status. Patient is a resident [facility]. Presents in the care of family who states that patient is full code. Patient' s been receiving chemotherapy treatments weekly with the most recent one last week.The patient has been getting sick from chemotherapy treatment and did not receive one yesterday as scheduled. Patient has been undergoing radiation therapy for his esophageal cancer. Family is concerned that the patient has not had anything to eat for the past 4 days with decreased by mouth intake. Notes that they have been giving him his prescribed medications as directed. Evaluated by his oncologist today who prescribed an oral antibiotic for concerns of respiratory congestion. Family states it traditions is concerned that they can no longer help care for him at the facility in his current state. Family states he has been having nausea as well as diarrhea. Respiratory congestion. No notable fevers. Also concern that the patient has intermittent altered mental status. All the history is provided by the family at bedside as the patient cannot provide history. Pt Subjective Complaint: generalized weakness/fatigue Onset (ago): day(s) Duration: constant Location: generalized Pain Scale: 0 - Related Data Home Medications Medication Instructions Recorded Confirmed Albuterol Sulfate [Albuterol 2 puff IH Q4H PRN 12/08/14 07/08/16 Inhaler] Aspirin Enteric Coated [Aspirin EC] 81 mg PO QAM 12/08/14 07/08/16 Cholecalciferol (Vitamin D3) 2,000 unit PO QAM 12/08/14 07/08/16 [Vitamin D3] Clopidogrel [Plavix] 75 mg PO QAM 12/08/14 07/08/16 Rosuvastatin [Crestor] 10 mg PO QAM 12/08/14 07/08/16 Furosemide [Lasix] 40 mg PO DAILY 09/01/15 07/08/16 Lisinopril [Zestril] 5 mg PO DAILY 09/01/15 07/08/16 Isosorbide MONOnitrate (24 HR) 30 mg PO DAILY 02/25/16 07/08/16 [Imdur] Nitroglycerin 0.4 mg SL Q5MIN PRN 02/25/16 07/08/16 Spironolactone [Aldactone] 12.5 mg PO DAILY 02/25/16 07/08/16 Acetylcysteine 600 mg PO TID 03/25/16 07/08/16 [V-D[place]-e-Cysteine] Allopurinol [Zyloprim 300 MG] 100 mg PO DAILY 05/26/16 07/08/16 Budesonide/Formoterol 160/4.5 2 puff IH BIDR 05/26/16 07/08/16 [Symbicort 160/4.5] Omeprazole [PriLOSEC] 20 mg PO BID 05/26/16 07/08/16 Metoprolol [Lopressor] 25 mg PO BID 06/13/16 07/08/16 Sennosides/Docusate Sodium 1 each PO BID 06/13/16 07/08/16 [Senna-S Tablet] Previous Rx's Medication Instructions Recorded Lactose-Reduced Food [Ensure Plus] 1 bottle PO TID #90 can 06/01/16 Magic Mouthwash 10 ml PO Q4H PRN #240 ml 06/15/16 Prochlorperazine Maleate 10 mg PO Q6HR PRN #40 tablet 06/15/16 [Compazine] Lidocaine/Prilocaine CREAM [Emla] 5 gm TP AD #1 tube 06/24/16 Ondansetron [Zofran] 8 mg PO Q8HR PRN #60 tablet 06/24/16 Levofloxacin 750 mg PO DAILY #3 tablet 07/12/16 Levofloxacin 750 mg PO DAILY #3 tablet 07/12/16 MetroNIDAZOLE [Flagyl] 500 mg PO TID #30 tablet 07/15/16 Magic Mouthwash [Magic Mouthwash 10 ml PO Q3-4H PRN #240 ml 07/27/16 BLM] Loperamide [Imodium] 2 mg PO BID #60 capsule 07/29/16 OxyCODONE Immed Rel [Roxicodone 5 5 mg PO Q8HR PRN #90 tablet 07/29/16 MG] Levofloxacin [Levaquin] 750 mg PO DAILY #5 tablet 08/02/16 Sucralfate [Carafate] 1 gm PO QIDAC PRN #120 tablet 08/02/16 Allergies Allergy/AdvReac Type Severity Reaction Status Date / Time No Known Allergies Allergy Verified 08/02/16 17:40 All systems ED: reviewed and negative except as stated. Constitutional: Reports: as per HPI. Denies: fever Eyes: Reports: as per HPI ENT ED: Reports: as per HPI Cardiovascular: Reports: as per HPI Respiratory: Reports: as per HPI, cough Gastrointestinal: Reports: as per HPI, nausea, diarrhea Genitourinary: Reports: as per HPI Musculoskeletal: Reports: as per HPI Integumentary: Reports: as per HPI Neurological: Reports: as per HPI, weakness Psychiatric: Reports: as per HPI Endocrine: Reports: as per HPI Hematological/Lymphatic: Reports: as per HPI Allergic/Immunologic: Reports: as per HPI Past Medical History - Past Medical History Medical history: Reports: cancer, cardiomyopathy, CHF, COPD, coronary artery disease, diabetes, GERD, hyperlipidemia, hypertension, myocardial infarction, peripheral artery disease, TIA, valvular heart disease Surgical history: Reports: carotid endarterectomy, coronary bypass (CABG) Psychiatric history: Reports: no psych history - Social History Smoking Status: Former smoker Smokeless Tobacco Status: No Alcohol use: Reports: none Drug use: Reports: none Physical Exam - General Limitations: altered mental status General appearance: alert, lethargic - Head Head exam: atraumatic, normal inspection - Eye Eye exam: Present: normal appearance. Absent: scleral icterus - ENT ENT exam: normal exam, mucous membranes dry - Neck Neck exam: Present: normal inspection - Chest Chest inspection: Present: normal inspection. Absent: symmetric chest wall rise - Respiratory Respiratory exam: Present: other (Upper respiratory congestion with diffusely decreased breath sounds) - Cardiovascular Cardiovascular exam: Present: tachycardia, irregular rhythm. Absent: systolic murmur - Abdominal Exam Abdominal exam: Present: soft. Absent: guarding, rebound - Extremities Exam Extremities exam: Present: normal inspection. Absent: pedal edema - Neurological Exam Neurological exam: Present: alert, other (Confused but controlling his airway) - Skin Skin exam: Present: warm, dry Course Course Narrative: Patient seen and examined. Patient appears unwell. Patient does have vitals show A. fib with RVR with a rate 130s and blood pressure 93 systolic. Patient is a cancer patient. Patient will get a workup concerning for infectious source as well as dehydration. - Reevaluation(s) Reevaluation #1: Patient seen and examined. Patient's blood pressures responding to IV fluids. Patient did have information from prior evaluation that has a DNR CC check box without his signature on the form. This information was relayed to family the patient. Patient states that he would want intubated and life support if needed. Family also states that that would be his wishes. Time: 18:22 Vital Signs Temperature 99.6 F 08/02/16 17:15 Pulse Rate 132 08/02/16 17:15 Respiratory Rate 20 08/02/16 17:15 Blood Pressure 93/60 08/02/16 17:15 O2 Sat by Pulse Oximetry 96 08/02/16 17:15 Temperature 99.6 F 08/02/16 17:15 Pulse Rate 133 08/02/16 17:40 Respiratory Rate 20 08/02/16 17:40 Blood Pressure 106/65 08/02/16 17:40 O2 Sat by Pulse Oximetry 97 08/02/16 17:40 Oxygen Delivery Oxygen Delivery Nasal Cannula Weakness - Lab Data Result diagrams: 08/02/16 17:50 Lab Results 08/02/16 08/02/16 08/02/16 Range/Units 17:38 17:50 17:50 PT 16.5 H (9.4-12.1) Seconds INR 1.5 Sodium 139 (136-145) mEq/L Potassium 4.9 H (3.5-4.5) mEq/L Chloride 113 H (98-109) mEq/L Carbon Dioxide 19 (19-29) mEq/L BUN 25 (8-26) mg/dL Creatinine 1.23 (0.72-1.25) mg/dL Est GFR ( Amer) > 60 (> 60) Est GFR (Non-Af Amer) 57 L (> 60) BUN/Creatinine Ratio 20 (6-26) Glucose 96 (70-99) mg/dL POC Glucose 91 H (58-89) Calculated Osmolality 292 (280-300) Lactic Acid (0.5-2.2) mmol/L Calcium 8.4 L (8.6-10.8) mg/dL Phosphorus 3.1 (2.3-4.7) mg/dL Magnesium 1.6 (1.6-2.6) mg/dL Total Bilirubin 0.7 (0.2-1.2) mg/dL AST 28 (5-34) Units/L ALT 23 (0-55) Units/L Alkaline Phosphatase 56 (38-126) Units/L Serum Total Protein 6.2 (6.0-8.3) g/dL Albumin 2.4 L (3.5-5.0) g/dL Globulin 3.8 H (2.4-3.5) g/dL Albumin/Globulin Ratio 0.6 L (1.1-2.2) 08/02/16 Range/Units 17:50 PT (9.4-12.1) Seconds INR Sodium (136-145) mEq/L Potassium (3.5-4.5) mEq/L Chloride (98-109) mEq/L Carbon Dioxide (19-29) mEq/L BUN (8-26) mg/dL Creatinine (0.72-1.25) mg/dL Est GFR ( Amer) (> 60) Est GFR (Non-Af Amer) (> 60) BUN/Creatinine Ratio (6-26) Glucose (70-99) mg/dL POC Glucose (58-89) Calculated Osmolality (280-300) Lactic Acid 1.1 (0.5-2.2) mmol/L Calcium (8.6-10.8) mg/dL Phosphorus (2.3-4.7) mg/dL Magnesium (1.6-2.6) mg/dL Total Bilirubin (0.2-1.2) mg/dL AST (5-34) Units/L ALT (0-55) Units/L Alkaline Phosphatase (38-126) Units/L Serum Total Protein (6.0-8.3) g/dL Albumin (3.5-5.0) g/dL Globulin (2.4-3.5) g/dL Albumin/Globulin Ratio (1.1-2.2) - EKG Data EKG attestation: Yes I reviewed and interpreted this EKG. EKG shows normal: sinus rhythm Rate: tachycardia Tully/QRS: normal QTc: other (378) Interpretation: nonspecific ST-T wave changes, other (Sinus tachycardia.)
[2016-08-02 17:59] LABS: Hemoglobin 7.9 g/dL (12.9-16.9)
[2016-08-02 18:00] LABS: Hematocrit 25.5 % (37.5-50.1); Mean Corpuscular Hemoglobin 27.1 pg (28.0-33.3); Mean Corpuscular Volume 87.6 fL (83.0-100.0); Mean Platelet Volume 11.4 fL (9.4-12.4); Platelet Count 143 K/mcL (140-400); Red Blood Count 2.91 M/mcL (4.19-5.50); Red Cell Distribution Width 19.8 % (11.5-14.5)
[2016-08-02 18:01] LABS: Nucleated Red Blood Cells 7.2 /100 WBC (0)
[2016-08-02 18:03] LABS: INR 1.5; Prothrombin Time 16.5 Seconds (9.4-12.1)
[2016-08-02 18:12] LABS: Alanine Aminotransferase 23 Units/L (0-55); Albumin 2.4 g/dL (3.5-5.0); Albumin/Globulin Ratio 0.6 (1.1-2.2); Alkaline Phosphatase 56 Units/L (38-126); Aspartate Amino Transferase 28 Units/L (5-34); BUN/Creatinine Ratio 20 (6-26); Bilirubin,Total 0.7 mg/dL (0.2-1.2); Blood Urea Nitrogen 25 mg/dL (8-26); Calcium 8.4 mg/dL (8.6-10.8); Carbon Dioxide 19 mEq/L (19-29); Chloride 113 mEq/L (98-109); Globulin 3.8 g/dL (2.4-3.5); Glucose 96 mg/dL (70-99); Magnesium 1.6 mg/dL (1.6-2.6); Osmolality,Calculated 292 (280-300); Phosphorous 3.1 mg/dL (2.3-4.7); Potassium 4.9 mEq/L (3.5-4.5); Sodium 139 mEq/L (136-145); Total Protein 6.2 g/dL (6.0-8.3); eGFR For African Americans > 60 (> 60); eGFR For Non-African Americans 57 (> 60)
[2016-08-02] MEDS ORDERED: Aspirin 325 MG TABLET PO ONE (18:25)
[2016-08-02 18:28] LABS: Lymphocytes # 0.1 K/mcL (0.6-4.6); Monocytes # 0.4 K/mcL (0.0-1.3); Polychromasia 1+ (Not Present)
--- NOTE | 2016-08-02 18:29 | Emergency Department Note ---
Disposition Clinical Impression: History of throat cancer, Sinus tachycardia, Generalized weakness Neutropenic Qualifiers: Neutropenia type: unspecified Qualified Code(s): D70.9 - Neutropenia, unspecified Anemia Qualifiers: Anemia type: unspecified type Qualified Code(s): D64.9 - Anemia, unspecified Disposition: Admitted As Inpatient Condition: Fair Weakness HPI - General Chief complaint: ED Weakness Stated complaint: Weakness, AMS, not able to eat/drink Time Seen by Provider: 08/02/16 17:33 Source: EMS Mode of arrival: EMS Limitations: altered mental status - History of Present Illness Pt Subjective Complaint: generalized weakness/fatigue Location: generalized Pain Scale: 0 - Related Data Home Medications Medication Instructions Recorded Confirmed Albuterol Sulfate [Albuterol 2 puff IH Q4H PRN 12/08/14 08/02/16 Inhaler] Cholecalciferol (Vitamin D3) 2,000 unit PO QAM 12/08/14 08/02/16 [Vitamin D3] Clopidogrel [Plavix] 75 mg PO QAM 12/08/14 08/02/16 Furosemide [Lasix] 40 mg PO DAILY 09/01/15 08/02/16 Isosorbide MONOnitrate (24 HR) 30 mg PO DAILY 02/25/16 08/02/16 [Imdur] Nitroglycerin 0.4 mg SL Q5MIN PRN 02/25/16 08/02/16 Spironolactone [Aldactone] 12.5 mg PO QAM 02/25/16 08/02/16 Budesonide/Formoterol 160/4.5 2 puff IH BIDR 05/26/16 08/02/16 [Symbicort 160/4.5] Omeprazole [PriLOSEC] 20 mg PO BID 05/26/16 08/02/16 Metoprolol [Lopressor] 12.5 mg PO BID 06/13/16 08/02/16 Allopurinol [Zyloprim 100 MG] 100 mg PO DAILY 08/02/16 08/02/16 Aspirin 81 mg PO DAILY 08/02/16 08/02/16 Insulin ASPART [NovoLOG] 2 - 12 unit SQ ACHS 08/02/16 08/02/16 Lactobacillus Acidophilus 1 each PO BID 08/02/16 08/02/16 [Acidophilus] Lactose-Reduced Food [Ensure Plus] 237 ml PO TID 08/02/16 08/02/16 Lidocaine/Prilocaine CREAM [Emla] 5 gm TP MOTUWETHFR 08/02/16 08/02/16 Magnesium Hydroxide [Milk of 2,400 mg PO DAILY PRN 08/02/16 08/02/16 Magnesia] Melatonin 5 mg PO HS 08/02/16 08/02/16 Mirtazapine 7.5 mg PO HS 08/02/16 08/02/16 Rosuvastatin Calcium [Crestor] 10 mg PO HS 08/02/16 08/02/16 Sucralfate [Carafate] 1 gm PO ACHS 08/02/16 08/02/16 Previous Rx's Medication Instructions Recorded Prochlorperazine Maleate 10 mg PO Q6HR PRN #40 tablet 06/15/16 [Compazine] Ondansetron [Zofran] 8 mg PO Q8HR PRN #60 tablet 06/24/16 Magic Mouthwash [Magic Mouthwash 10 ml PO Q3-4H PRN #240 ml 07/27/16 BLM] Loperamide [Imodium] 2 mg PO BID #60 capsule 07/29/16 OxyCODONE Immed Rel [Roxicodone 5 5 mg PO Q8HR PRN #90 tablet 07/29/16 MG] Levofloxacin [Levaquin] 750 mg PO DAILY #5 tablet 08/02/16 Allergies Allergy/AdvReac Type Severity Reaction Status Date / Time No Known Allergies Allergy Verified 08/02/16 17:40 Constitutional: Reports: as per HPI. Denies: fever Eyes: Reports: as per HPI ENT ED: Reports: as per HPI Cardiovascular: Reports: as per HPI Respiratory: Reports: as per HPI, cough Gastrointestinal: Reports: as per HPI, nausea, diarrhea Genitourinary: Reports: as per HPI Musculoskeletal: Reports: as per HPI Integumentary: Reports: as per HPI Neurological: Reports: as per HPI, weakness Psychiatric: Reports: as per HPI Endocrine: Reports: as per HPI Hematological/Lymphatic: Reports: as per HPI Allergic/Immunologic: Reports: as per HPI Past Medical History - Past Medical History Medical history: Reports: cancer, cardiomyopathy, CHF, COPD, coronary artery disease, diabetes, GERD, hyperlipidemia, hypertension, myocardial infarction, peripheral artery disease, TIA, valvular heart disease Surgical history: Reports: carotid endarterectomy, coronary bypass (CABG) Psychiatric history: Reports: no psych history - Social History Smoking Status: Former smoker Smokeless Tobacco Status: No Alcohol use: Reports: none Drug use: Reports: none Physical Exam - General Limitations: altered mental status General appearance: alert, lethargic Course - Reevaluation(s) Time: 18:27 Vital Signs Temperature 99.6 F 08/02/16 17:15 Pulse Rate 132 08/02/16 17:15 Respiratory Rate 20 08/02/16 17:15 Blood Pressure 93/60 08/02/16 17:15 O2 Sat by Pulse Oximetry 96 08/02/16 17:15 Temperature 98.0 F 08/02/16 20:31 Pulse Rate 134 08/02/16 20:31 Respiratory Rate 24 08/02/16 20:31 Blood Pressure 109/65 08/02/16 20:31 O2 Sat by Pulse Oximetry 96 08/02/16 20:31 Oxygen Delivery Oxygen Delivery Nasal Cannula Weakness - MDM Narrative Medical decision making narrative: 80-year-old male with a recent diagnosis of esophageal cancer back in April and May undergo any chemotherapy and radiation presents for evaluation of generalized weakness from traditions. Patient is not able to provide much of a history. Much of the history of vitamin the family. Family confirms that the patient at this point would want all interventions including intubation. Patient appears chronically ill. Patient appears dehydrated. Patient is alert but does not respond appropriately. Patient had abnormal vital signs at triage with heart rate in the 130s and blood pressure 93 systolic. Patient's blood pressure has improved with IV fluid hydration. Patient's lab work shows that he is neutropenic similar to prior evaluations. Patient does have an elevated troponin likely related to rate as the patient has been having elevated troponins past. Patient's chest x-ray shows no definitive infiltrate appears unchanged from prior chest x-rays. Patient's lactate is normal. Patient's hemoglobin is relatively stable from prior lab values. Patient will be admitted to the hospital service for further care and monitoring. - Lab Data Lab results reviewed: Yes I reviewed the patient's lab results. Result diagrams: 08/02/16 17:50 08/02/16 17:50 Lab Results 08/02/16 08/02/16 08/02/16 Range/Units 17:38 17:50 17:50 WBC 1.4 L (4.3-11.1) K/mcL RBC 2.91 L (4.19-5.50) M/mcL Hgb 7.9 L (12.9-16.9) g/dL Hct 25.5 L (37.5-50.1) % MCV 87.6 (83.0-100.0) fL MCH 27.1 L (28.0-33.3) pg MCHC 31.0 L (31.6-35.5) g/dL RDW 19.8 H (11.5-14.5) % Plt Count 143 (140-400) K/mcL MPV 11.4 (9.4-12.4) fL Seg Neutrophils % 70.0 % Lymphocytes % 4.0 % Monocytes % 26.0 % Neutrophils # 1.0 L (1.6-8.9) K/mcL Lymphocytes # 0.1 L (0.6-4.6) K/mcL Monocytes # 0.4 (0.0-1.3) K/mcL Nucleated RBCs/100 WBC 7.2 H (0) /100 WBC Polychromasia 1+ A (Not Present) PT 16.5 H (9.4-12.1) Seconds INR 1.5 Sodium (136-145) mEq/L Potassium (3.5-4.5) mEq/L Chloride (98-109) mEq/L Carbon Dioxide (19-29) mEq/L BUN (8-26) mg/dL Creatinine (0.72-1.25) mg/dL Est GFR ( Amer) (> 60) Est GFR (Non-Af Amer) (> 60) BUN/Creatinine Ratio (6-26) Glucose (70-99) mg/dL POC Glucose 91 H (58-89) Calculated Osmolality (280-300) Lactic Acid (0.5-2.2) mmol/L Calcium (8.6-10.8) mg/dL Phosphorus (2.3-4.7) mg/dL Magnesium (1.6-2.6) mg/dL Total Bilirubin (0.2-1.2) mg/dL AST (5-34) Units/L ALT (0-55) Units/L Alkaline Phosphatase (38-126) Units/L Troponin I (0-0.03) ng/mL Serum Total Protein (6.0-8.3) g/dL Albumin (3.5-5.0) g/dL Globulin (2.4-3.5) g/dL Albumin/Globulin Ratio (1.1-2.2) Urine Color (Yellow) Urine Clarity (Clear) Urine pH (5.0-8.0) pH Units Ur Specific [place] (1.010-1.025) Urine Protein (Neg-Trace) mg/dL Urine Glucose (UA) (Normal) mg/dL Urine Ketones (Negative) mg/dL Urine Blood (Negative) Urine Nitrite (Negative) Urine Bilirubin (Negative) Urine Urobilinogen (Normal) mg/dL Ur Leukocyte Esterase (Negative) Urine Microscopic RBC (0-3) per hpf Urine Microscopic WBC (0-3) per hpf Ur Squamous Epith Cells (None-Few) per lpf Urine Bacteria (None-Few) per hpf Hyaline Casts (None-Few) per lpf Urine Yeast Ur Culture Indicated? (NO) 08/02/16 08/02/16 08/02/16 Range/Units 17:50 17:50 17:50 WBC (4.3-11.1) K/mcL RBC (4.19-5.50) M/mcL Hgb (12.9-16.9) g/dL Hct (37.5-50.1) % MCV (83.0-100.0) fL MCH (28.0-33.3) pg MCHC (31.6-35.5) g/dL RDW (11.5-14.5) % Plt Count (140-400) K/mcL MPV (9.4-12.4) fL Seg Neutrophils % % Lymphocytes % % Monocytes % % Neutrophils # (1.6-8.9) K/mcL Lymphocytes # (0.6-4.6) K/mcL Monocytes # (0.0-1.3) K/mcL Nucleated RBCs/100 WBC (0) /100 WBC Polychromasia (Not Present) PT (9.4-12.1) Seconds INR Sodium 139 (136-145) mEq/L Potassium 4.9 H (3.5-4.5) mEq/L Chloride 113 H (98-109) mEq/L Carbon Dioxide 19 (19-29) mEq/L BUN 25 (8-26) mg/dL Creatinine 1.23 (0.72-1.25) mg/dL Est GFR ( Amer) > 60 (> 60) Est GFR (Non-Af Amer) 57 L (> 60) BUN/Creatinine Ratio 20 (6-26) Glucose 96 (70-99) mg/dL POC Glucose (58-89) Calculated Osmolality 292 (280-300) Lactic Acid 1.1 (0.5-2.2) mmol/L Calcium 8.4 L (8.6-10.8) mg/dL Phosphorus 3.1 (2.3-4.7) mg/dL Magnesium 1.6 (1.6-2.6) mg/dL Total Bilirubin 0.7 (0.2-1.2) mg/dL AST 28 (5-34) Units/L ALT 23 (0-55) Units/L Alkaline Phosphatase 56 (38-126) Units/L Troponin I 0.04 H* (0-0.03) ng/mL Serum Total Protein 6.2 (6.0-8.3) g/dL Albumin 2.4 L (3.5-5.0) g/dL Globulin 3.8 H (2.4-3.5) g/dL Albumin/Globulin Ratio 0.6 L (1.1-2.2) Urine Color (Yellow) Urine Clarity (Clear) Urine pH (5.0-8.0) pH Units Ur Specific [place] (1.010-1.025) Urine Protein (Neg-Trace) mg/dL Urine Glucose (UA) (Normal) mg/dL Urine Ketones (Negative) mg/dL Urine Blood (Negative) Urine Nitrite (Negative) Urine Bilirubin (Negative) Urine Urobilinogen (Normal) mg/dL Ur Leukocyte Esterase (Negative) Urine Microscopic RBC (0-3) per hpf Urine Microscopic WBC (0-3) per hpf Ur Squamous Epith Cells (None-Few) per lpf Urine Bacteria (None-Few) per hpf Hyaline Casts (None-Few) per lpf Urine Yeast Ur Culture Indicated? (NO) 08/02/16 Range/Units 18:15 WBC (4.3-11.1) K/mcL RBC (4.19-5.50) M/mcL Hgb (12.9-16.9) g/dL Hct (37.5-50.1) % MCV (83.0-100.0) fL MCH (28.0-33.3) pg MCHC (31.6-35.5) g/dL RDW (11.5-14.5) % Plt Count (140-400) K/mcL MPV (9.4-12.4) fL Seg Neutrophils % % Lymphocytes % % Monocytes % % Neutrophils # (1.6-8.9) K/mcL Lymphocytes # (0.6-4.6) K/mcL Monocytes # (0.0-1.3) K/mcL Nucleated RBCs/100 WBC (0) /100 WBC Polychromasia (Not Present) PT (9.4-12.1) Seconds INR Sodium (136-145) mEq/L Potassium (3.5-4.5) mEq/L Chloride (98-109) mEq/L Carbon Dioxide (19-29) mEq/L BUN (8-26) mg/dL Creatinine (0.72-1.25) mg/dL Est GFR ( Amer) (> 60) Est GFR (Non-Af Amer) (> 60) BUN/Creatinine Ratio (6-26) Glucose (70-99) mg/dL POC Glucose (58-89) Calculated Osmolality (280-300) Lactic Acid (0.5-2.2) mmol/L Calcium (8.6-10.8) mg/dL Phosphorus (2.3-4.7) mg/dL Magnesium (1.6-2.6) mg/dL Total Bilirubin (0.2-1.2) mg/dL AST (5-34) Units/L ALT (0-55) Units/L Alkaline Phosphatase (38-126) Units/L Troponin I (0-0.03) ng/mL Serum Total Protein (6.0-8.3) g/dL Albumin (3.5-5.0) g/dL Globulin (2.4-3.5) g/dL Albumin/Globulin Ratio (1.1-2.2) Urine Color Yellow (Yellow) Urine Clarity Clear (Clear) Urine pH 6.0 (5.0-8.0) pH Units Ur Specific [place] 1.019 (1.010-1.025) Urine Protein 30 H (Neg-Trace) mg/dL Urine Glucose (UA) Normal (Normal) mg/dL Urine Ketones Negative (Negative) mg/dL Urine Blood Negative (Negative) Urine Nitrite Negative (Negative) Urine Bilirubin Negative (Negative) Urine Urobilinogen Normal (Normal) mg/dL Ur Leukocyte Esterase Negative (Negative) Urine Microscopic RBC 0-3 (0-3) per hpf Urine Microscopic WBC 0-3 (0-3) per hpf Ur Squamous Epith Cells Many H (None-Few) per lpf Urine Bacteria None Seen (None-Few) per hpf Hyaline Casts None Seen (None-Few) per lpf Urine Yeast Test Not Performed Ur Culture Indicated? NO (NO) - Radiology Data Radiology results reviewed: Yes I reviewed the patient's radiology results. Chest X-Ray 08/02/16 17:34 IMPRESSION: No significant interval change with persistent opacities in the right upper lobe, left mid lung and right lung base. D/ / 08/02/2016 18:22:49 Nuzhat Chang MD / neela Interpreting Provider: MD Juan Eng - Juan Situation: Demographics Background: Presenting Complaint, Relevant PMH, Meds, & Allergies Assessment: Vital Signs, Course and respsone to treatment, Patient/Family Expectation Recommendation: Barrier(s) to disposition, Recommendation based on pending studies, treatments, or consults SSherri Report Given to: Dr. Gurpreet Martinez Repor Time: 18:40 Attestation Statement - Attestation Attestation: I examined this patient and my medical decision-making was reviewed with the Resident Physician. I agree with the documented findings, disposition and treatment plan as described except to the extent set forth below. Appears ill, dehydrated. Arousable, answers questions. MM pasty, eyes sunken. Signed DNR order sent with him, but patient and family both state they want everything done including intubation/CPR if necessary. Hydrated, work up initiated, pt admitted. Hgb low but stable. WBC also low but stable, does not meet criteria for neutropenia, low-grade temp elevation in ED.
[2016-08-02 18:31] LABS: Bilirubin,Urine Negative (Negative); Blood,Urine Negative (Negative); Clarity,Urine Clear (Clear); Color,Urine Yellow (Yellow); Glucose,Urine (UA) Normal (Normal); Ketones,Urine Negative (Negative); Leukocyte Esterase,Urine Negative (Negative); Nitrite,Urine Negative (Negative); Protein,Urine 30 mg/dL (Neg-Trace); Specific Gravity,Urine 1.019 (1.010-1.025); Urobilinogen,Urine Normal (Normal)
[2016-08-02 18:32] LABS: Bacteria,Urine None Seen per hpf (None-Few); Hyaline Casts,Urine None Seen per lpf (None-Few); RBC,Urine 0-3 per hpf (0-3); Squamous Epithelial Cell,Urine Many per lpf (None-Few); WBC,Urine 0-3 per hpf (0-3)
--- NOTE | 2016-08-02 20:50 | Internal Med History&Physical ---
<Servando Rubio - Last Filed: 08/02/16 22:12> Date of Encounter: 08/02/16 Time of Encounter: 20:49 Assessment and Plan (1) Generalized weakness Current visit: Yes Status: Acute -Esophageal cancer undergoing chemo and radiation therapy. Last treatment Monday. Significant weakness on -Patient not eating or drinking much the past four days. No desire. Per family, oncologist prescribed "cannaboid like medication to help with appetite". Admits to diarrhea. Non bloody -Denies pain, flutter, palpitations. -Neutropenia. High HR. No fever. CXR performed and previous CT reviewed. Blood cultures received. -High HR likely due to dehydration and not receiving medication. Restarted home meds. -Chronic elevated trop Plan -Recheck trop in morning. -Check electrolytes. Continue fluids. -Notify if fever developes. -Orthostatics ordered -Consider septic workup if HR continues, fever develops. 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 Angel is a 80 year old male, PMH esophageal cancer undergoing chemo and radiation therapy, admitted for generalized weakness. Weakness noticed , previously patient was ambulatory last weak. Admits to decrease appetite and mild, unproductive cough, non bloody diarrhea. Denies N/V/pain/CP/SOB/Focal neurologic deficit/blurry vision. Did have chemo/radiation on Monday of last week. Patient and family still want full code. Past Med Surg Social Fam HX - Past Medical History Medical history: cancer, cardiomyopathy, CHF, COPD, coronary artery disease, diabetes, GERD, hyperlipidemia, hypertension, myocardial infarction, peripheral artery disease, TIA, valvular heart disease Psychiatric history: no psych history - Past Surgical History Surgical History: carotid endarterectomy, coronary bypass (CABG) - Social History Smoking Status: Former smoker Smokeless Tobacco Status: No Alcohol use: none Drug use: none - Family History Father Hx Family Cancer: Yes Mother Living Status: Hx Family Cardiac Disorders: No Hx Family Respiratory Disorders: No Hx Family Cancer: Yes (brain tumor) Internal Medicine - H&P: Meds Albuterol Sulfate [Albuterol Inhaler] 2 puff IH Q4H PRN 12/08/14 [History] Cholecalciferol (Vitamin D3) [Vitamin D3] 2,000 unit PO QAM 12/08/14 [History] Clopidogrel [Plavix] 75 mg PO QAM 12/08/14 [History] Furosemide [Lasix] 40 mg PO DAILY 09/01/15 [History] Isosorbide MONOnitrate (24 HR) [Imdur] 30 mg PO DAILY 02/25/16 [History] Nitroglycerin 0.4 mg SL Q5MIN PRN 02/25/16 [History] Spironolactone [Aldactone] 12.5 mg PO QAM 02/25/16 [History] Budesonide/Formoterol 160/4.5 [Symbicort 160/4.5] 2 puff IH BIDR 05/26/16 [ History] Omeprazole [PriLOSEC] 20 mg PO BID 05/26/16 [History] Metoprolol [Lopressor] 12.5 mg PO BID 06/13/16 [History] Prochlorperazine Maleate [Compazine] 10 mg PO Q6HR PRN #40 tablet 06/15/16 [Rx] Ondansetron [Zofran] 8 mg PO Q8HR PRN #60 tablet 06/24/16 [Rx] Magic Mouthwash [Magic Mouthwash BLM] 10 ml PO Q3-4H PRN #240 ml 07/27/16 [Rx] Loperamide [Imodium] 2 mg PO BID #60 capsule 07/29/16 [Rx] OxyCODONE Immed Rel [Roxicodone 5 MG] 5 mg PO Q8HR PRN #90 tablet 07/29/16 [Rx] Allopurinol [Zyloprim 100 MG] 100 mg PO DAILY 08/02/16 [History] Aspirin 81 mg PO DAILY 08/02/16 [History] Insulin ASPART [NovoLOG] 2 - 12 unit SQ ACHS 08/02/16 [History] Lactobacillus Acidophilus [Acidophilus] 1 each PO BID 08/02/16 [History] Lactose-Reduced Food [Ensure Plus] 237 ml PO TID 08/02/16 [History] Levofloxacin [Levaquin] 750 mg PO DAILY #5 tablet 08/02/16 [Rx] Lidocaine/Prilocaine CREAM [Emla] 5 gm TP MOTUWETHFR 08/02/16 [History] Magnesium Hydroxide [Milk of Magnesia] 2,400 mg PO DAILY PRN 08/02/16 [History] Melatonin 5 mg PO HS 08/02/16 [History] Mirtazapine 7.5 mg PO HS 08/02/16 [History] Rosuvastatin Calcium [Crestor] 10 mg PO HS 08/02/16 [History] Sucralfate [Carafate] 1 gm PO ACHS 08/02/16 [History] Allergies No Known Allergies Allergy (Verified 08/02/16 17:40) All Systems PM: A 10-system review of systems was performed and is negative for pertinent findings except as documented above in the HPI. - Constitutional Constitutional: no chills, no fever(s), no night sweats - Cardiovascular Cardiovascular ROS IM: no chest pain, no diaphoresis, no dyspnea, no lightheadedness, no palpitations, no syncope - Respiratory Respiratory: no cough, no dyspnea, no wheezing, no excessive phlegm production - Gastrointestinal Gastrointestinal: diarrhea, no abdominal pain, no hematemesis, no hematochezia, no melena, no nausea, no vomiting - Neurological Neurological ROS: as per HPI - Constitutional Vitals: Temp Pulse Resp BP Pulse Ox 98.0 F 134 24 109/65 96 08/02/16 20:31 08/02/16 20:31 08/02/16 20:31 08/02/16 20:31 08/02/16 20:31 General appearance: Present: A&O X 3 - Head Head exam: Present: atraumatic, normocephalic - ENT ENT exam: Present: mucous membranes dry - Respiratory Respiratory exam: Present: decreased breath sounds. Absent: CTAB - Cardiovascular Cardiovascular exam: Present: +S1, +S2, tachycardia. Absent: diastolic murmur, gallop, rubs, systolic murmur Internal Med - H&P Results - Labs CBC & Chem 7: 08/02/16 17:50 08/02/16 17:50 <Rolo Zambrano R - Last Filed: 08/03/16 01:51> Date of Encounter: 08/02/16 Internal Medicine - H&P: HPI History of present illness: Mr. Angel is a 80 year old male All Systems PM: A 10-system review of systems was performed and is negative for pertinent findings except as documented above in the HPI. - Constitutional Vitals: Temp Pulse Resp BP Pulse Ox 99.1 F 122 22 122/71 92 08/03/16 00:27 08/03/16 00:27 08/03/16 00:27 08/03/16 00:27 08/03/16 00:27 Internal Med - H&P Results - Labs CBC & Chem 7: 08/02/16 17:50 08/02/16 17:50 - Attending Attestation I performed history and physical examination of the patient and discussed management with resident/Diesel Fitter Mechanic. I reviewed the resident/ Interns note and agree with the documented findings and plan of care. 80 year old male with h/o esophageal cancer - on chemo and radiation therapy, admitted for generalized weakness. Pt reports poor apetite. Episodes of loose stool twice today. Denies pain. O/E: Tachycardic. Lungs: B/L air entry present. No significant wheeze. EKG personally reviewed by me shows Sinus tachycardia versus A fib. CXR reported chronic changes. Labs showed WBC of 1.4, hemoglobin 7.9, hematocrit 25.5, troponin 0.04. A/P: Generalized weakness: Possibly related to volume depletion. Tachycardia: pt is given fluid boluses, with improvement of heart rate. Will give metoprolol IV PRN. Will check TSH; Isolation precautions for neutropenia. Oncology consult. Troponin elevation seems to be chronic.
[2016-08-02] MEDS ORDERED: 0.9 % Sodium Chloride 1,000 ML IVC SCH (21:15)
[2016-08-02] MEDS ORDERED: Ondansetron ODT 4 MG TAB.RAPDIS PO PRN (21:41)
[2016-08-02] MEDS ORDERED: *HR* OxyCODONE Immed Rel 5 MG TABLET PO PRN (21:41)
[2016-08-02] MEDS: Mirtazapine 15 MG TABLET PO SCH (22:53)
[2016-08-02] MEDS: Budesonide/Formoterol 160/4.5 MDI IH SCH (23:25)
[2016-08-03] MEDS ORDERED: *HR* Metoprolol 5 MG/5 ML VIAL IVP ONE ×5 (00:11→20:54)
[2016-08-03] MEDS ORDERED: Vancomycin 1,000 MG in D5% in Water 250 ML IVPB SCH (05:09)
[2016-08-03] MEDS ORDERED: Acetaminophen IV 500 MG/50 ML INFUS..BTL IVPB STA (05:26)
[2016-08-03] MEDS: Piperacillin/Tazobactam 3.375 GM in D5% in Water (Mini-Bag+) 100 ML IVPB SCH ×4 (05:31→23:45)
[2016-08-03] MEDS ORDERED: 0.9 % Sodium Chloride 1,000 ML IVC ONE (05:43)
[2016-08-03] MEDS ORDERED: 0.9 % Sodium Chloride 1,000 ML IVC SCH (05:45)
[2016-08-03] MEDS: Vancomycin 1,250 MG in D5% in Water 250 ML IVPB SCH (05:50)
[2016-08-03 06:01] LABS: Calcium 7.6 mg/dL (8.6-10.8); Carbon Dioxide 17 mEq/L (19-29); Chloride 117 mEq/L (98-109); Glucose 69 mg/dL (70-99); Magnesium 1.4 mg/dL (1.6-2.6); Potassium 4.2 mEq/L (3.5-4.5); Sodium 140 mEq/L (136-145); eGFR For African Americans > 60 (> 60); eGFR For Non-African Americans > 60 (> 60)
[2016-08-03 06:04] LABS: Hematocrit 23.5 % (37.5-50.1); Hemoglobin 7.3 g/dL (12.9-16.9); Immature Granulocytes % 1.7 % (0-4); Immature Platelets 5.3 % (1.1-6.1); Lymphocytes % 4.3 %; Mean Corpuscular HGB Conc 31.1 g/dL (31.6-35.5); Mean Corpuscular Hemoglobin 27.5 pg (28.0-33.3); Mean Corpuscular Volume 88.7 fL (83.0-100.0); Mean Platelet Volume 12.4 fL (9.4-12.4); Monocytes % 28.7 %; Platelet Count 130 K/mcL (140-400); Red Blood Count 2.65 M/mcL (4.19-5.50); Segmented Neutrophils % 64.4 %
[2016-08-03 06:05] LABS: Basophils % 0.9 %; Lymphocytes # 0.1 K/mcL (0.6-4.6); Monocytes # 0.3 K/mcL (0.0-1.3); Nucleated Red Blood Cells 5.2 /100 WBC (0)
[2016-08-03 06:15] LABS: Neutrophils # 0.8 K/mcL (1.6-8.9)
[2016-08-03 06:18] LABS: Anisocytosis 2+ (Not Present); Large Platelets Present (Not Present); Macrocytosis Present (Not Present); Microcytosis Present (Not Present); Platelet Estimate Slight Decrease (Normal); Poikilocytosis 1+ (Not Present); Thyroid Stimulating Hormone 0.762 mcIU/mL (0.350-4.840)
[2016-08-03 06:19] LABS: Tear Drop Cells 1+ (Not Present)
[2016-08-03 06:22] LABS: BUN/Creatinine Ratio 18 (6-26); Blood Urea Nitrogen 20 mg/dL (8-26); Osmolality,Calculated 291 (280-300)
--- NOTE | 2016-08-03 07:36 | Event Note ---
Date of Encounter: 08/03/16 Time of Encounter: 05:30 Hospitalist note: Patient was tachycardic during the night, with some response to IV fluid boluses. EKG was suspicious for sinus tachycardia versus junctional tachycardia. He did not respond well to intravenous metoprolol. CTA chest was requested to exclude pulmonary embolism. On my preliminary review of the CTA, there was no evidence of pulmonary embolism but there was concern for the pneumonia in the bases. Emperically started on zosyn and vancomycin. Pt subsequently became febrile with temperature 101.7 and hypotensive. Patient received further normal saline boluses but continued to be borderline hypotensive. His troponins went up to over 4. He was given aspirin. EKG showed later ST depression. Pt is high risk with Neutropenic fever / sepsis and elevation of troponin - requested cardiology consult. Pt is transferred to ICU for further care. I have signed out to Dr. Walker
[2016-08-03 07:59] LABS: C.difficile Toxin A/B by PCR See reflex test (Not detect); Campylobacter by PCR Not detected (Not detect); Cryptosporidium by PCR Not detected (Not detect); Cyclospora cayetanensis PCR Not detected (Not detect); E. coli O157 by PCR Not detected (Not detect); Enteroaggregative E.coli(EAEC) Not detected (Not detect); Enteropathogenic E.coli(EPEC) Not detected (Not detect); Enterotoxigenic E.coli (ETEC) Not detected (Not detect); Plesiomonas shigelloides PCR Not detected (Not detect); Salmonella PCR Not detected (Not detect); Shig/EnteroinvasiveE coli EIEC Not detected (Not detect); Shigalike tox-prod E coli STEC Not detected (Not detect); Vibrio PCR Not detected (Not detect); Vibrio cholerae PCR Not detected (Not detect); Yersinia enterocolitica PCR Not detected (Not detect)
[2016-08-03 08:00] LABS: Adenovirus F 40/41 PCR Not detected (Not detect); Astrovirus PCR Not detected (Not detect); Entamoeba histolytica PCR Not detected (Not detect); Giardia lamblia PCR Not detected (Not detect); Norovirus GI/GII PCR Not detected (Not detect); Rotavirus A PCR Not detected (Not detect); Sapovirus PCR Not detected (Not detect)
[2016-08-03] MEDS ORDERED: NON-FORMULARY MEDICATION 1 EACH EACH (Insulin Aspart 0 UNIT) SQ SCH (08:00)
[2016-08-03] MEDS: Insulin LISPRO 300 UNITS/3 ML VIAL SQ SCH ×3 (08:07→16:34)
[2016-08-03] MEDS: 0.9 % Sodium Chloride 1,000 ML IVC SCH ×6 (08:24→20:19)
[2016-08-03] MEDS: Norepinephrine 4 MG in D5% in Water 250 ML IVC SCH (08:27)
[2016-08-03] MEDS ORDERED: Isosorbide MONOnitrate (24 HR) 30 MG TAB.ER.24H PO SCH (09:00)
[2016-08-03] MEDS ORDERED: NUTRITIONAL SUPPLEMENT PO SCH (09:00)
--- NOTE | 2016-08-03 09:52 | Cardiology Consult Note ---
Date of Encounter: 08/03/16 Time of Encounter: 09:44 Assessment and Plan (1) NSTEMI (non-ST elevated myocardial infarction) Current Visit: Yes Status: Acute Troponin elevated at 4.[address] with EKG showing lateral ST depression Not a current candidate for [facility] Recommend medical management Recommend echocardiogram Recommend starting anticoagulation, consider fondaparinux due to decreased incidence of HIT in pancytopenic patient Recommend keeping hemoglobin at 8g/dL or above (preferably 10g/dL) (2) Anemia Current Visit: Yes Status: Acute Recommend keeping hemoglobin at 8g/dL or above (preferably 10g/dL) Qualifiers: Anemia type: other cause Other causes of anemia: chronic disease, neoplastic Qualified Code(s): D63.0 - Anemia in neoplastic disease Discussion w patient/family: The assessment and plan as outlined above was discussed with the patient and/or family members who expressed understanding and agreement. All questions were answered. Thank you for involving us in the care of your patient. Please call with any questions. History of Present Illness Consult date: 08/03/16 Consult reason: Elevated troponin, EKG changes Chief complaint: Confusion/tachycardia History of present illness: Mr. Angel is a 80 year old male with a PMH of CHF, COPD, HTN, CKD, CAD (LHC at [facility] with CX stent on 06/2015, CABG x2 in 2009), and esophageal cancer diagnosed in 05/2016 and undergoing current chemoradiation. Resident of local nursing facility and presented due to a few days of worsening confusion, decreased PO intake, and fatigue. In the ER his HR was 130 with SBP of 93. Was diagnosed with bilateral LL pneumonia and CARLOS pneumonia. Overnight troponin increased to 4.84, he became febrile, hypotensive, and lateral ST depression on EKG. Was transferred to ICU and cardiology consulted due to EKG changes, and troponin elevation. He currently is confused and denies any symptoms. He is alert but tells me the year is 1976 and he is not having any CONRADO although he is on a non rebreather and visibly working to breath. Past Med Surg Social Fam HX - Past Medical History Medical history: cancer, cardiomyopathy, CHF, COPD, coronary artery disease, diabetes, GERD, hyperlipidemia, hypertension, myocardial infarction, peripheral artery disease, TIA, valvular heart disease Psychiatric history: no psych history - Past Surgical History Surgical History: carotid endarterectomy, coronary bypass (CABG) - Social History Smoking Status: Former smoker Smokeless Tobacco Status: No Alcohol use: none Drug use: none - Family History Father Hx Family Cancer: Yes Mother Living Status: Hx Family Cardiac Disorders: No Hx Family Respiratory Disorders: No Hx Family Cancer: Yes (brain tumor) Medications and Allergies Albuterol Sulfate [Albuterol Inhaler] 2 puff IH Q4H PRN 12/08/14 [History] Cholecalciferol (Vitamin D3) [Vitamin D3] 2,000 unit PO QAM 12/08/14 [History] Clopidogrel [Plavix] 75 mg PO QAM 12/08/14 [History] Furosemide [Lasix] 40 mg PO DAILY 09/01/15 [History] Isosorbide MONOnitrate (24 HR) [Imdur] 30 mg PO DAILY 02/25/16 [History] Nitroglycerin 0.4 mg SL Q5MIN PRN 02/25/16 [History] Spironolactone [Aldactone] 12.5 mg PO QAM 02/25/16 [History] Budesonide/Formoterol 160/4.5 [Symbicort 160/4.5] 2 puff IH BIDR 05/26/16 [ History] Omeprazole [PriLOSEC] 20 mg PO BID 05/26/16 [History] Metoprolol [Lopressor] 12.5 mg PO BID 06/13/16 [History] Prochlorperazine Maleate [Compazine] 10 mg PO Q6HR PRN #40 tablet 06/15/16 [Rx] Ondansetron [Zofran] 8 mg PO Q8HR PRN #60 tablet 06/24/16 [Rx] Magic Mouthwash [Magic Mouthwash BLM] 10 ml PO Q3-4H PRN #240 ml 07/27/16 [Rx] Loperamide [Imodium] 2 mg PO BID #60 capsule 07/29/16 [Rx] OxyCODONE Immed Rel [Roxicodone 5 MG] 5 mg PO Q8HR PRN #90 tablet 07/29/16 [Rx] Allopurinol [Zyloprim 100 MG] 100 mg PO DAILY 08/02/16 [History] Aspirin 81 mg PO DAILY 08/02/16 [History] Insulin ASPART [NovoLOG] 2 - 12 unit SQ ACHS 08/02/16 [History] Lactobacillus Acidophilus [Acidophilus] 1 each PO BID 08/02/16 [History] Lactose-Reduced Food [Ensure Plus] 237 ml PO TID 08/02/16 [History] Levofloxacin [Levaquin] 750 mg PO DAILY #5 tablet 08/02/16 [Rx] Lidocaine/Prilocaine CREAM [Emla] 5 gm TP MOTUWETHFR 08/02/16 [History] Magnesium Hydroxide [Milk of Magnesia] 2,400 mg PO DAILY PRN 08/02/16 [History] Melatonin 5 mg PO HS 08/02/16 [History] Mirtazapine 7.5 mg PO HS 08/02/16 [History] Rosuvastatin Calcium [Crestor] 10 mg PO HS 08/02/16 [History] Sucralfate [Carafate] 1 gm PO ACHS 08/02/16 [History] Allergies No Known Allergies Allergy (Verified 08/02/16 17:40) ROS unobtainable: due to mental status All Systems Review: A 10-system review of systems was performed and is negative for pertinent findings except as documented above in the HPI. Physical Examination Vital Signs, Last 4 Hours Pulse Resp BP Pulse Ox 08/03/16 09:00 106 28 120/41 92 General: Other (Alert, but confused) HEENT: Atraumatic Neck: No JVD Cardiac: Other (Unable to ausculate heart sounds due to loud continuous coarse rhonchi) Lungs: Other (coarse rhonchi throughout) Neuro: Alert and responsive Abdomen: Soft Skin: No rashes noted on visualized skin Extremities: No Cyanosis, No Edema, Normal Pulses Results 08/03/16 05:00 08/03/16 05:00 Consult Discharge Plan - Plan Referrals: [place] Zaidi [Primary Care Provider] -
[2016-08-03] MEDS: Aspirin 81 MG TAB.CHEW PO SCH (11:14)
[2016-08-03] MEDS: metroNIDAZOLE 500 MG TABLET PO SCH ×3 (11:14→20:16)
[2016-08-03] MEDS: Lactobacillus 1 EACH CAP.SPRINK PO SCH ×2 (11:14→20:16)
[2016-08-03] MEDS: Vancomycin Oral Soln 250 MG/2.5 ML UDC PO SCH ×4 (11:14→20:16)
[2016-08-03] MEDS: Furosemide 40 MG TABLET PO SCH (11:14)
[2016-08-03] MEDS: Cholecalciferol (D-3) 1,000 UNIT TABLET PO SCH (11:15)
[2016-08-03] MEDS: Budesonide/Formoterol 160/4.5 MDI IH SCH ×2 (11:38→20:49)
--- NOTE | 2016-08-03 11:54 | Pulmonology Consult Note ---
<Dennis Rincon - Last Filed: 08/03/16 12:28> Date of Encounter: 08/03/16 Time of Encounter: 08:50 Assessment and Plan (1) HCAP (healthcare-associated pneumonia) Current Visit: No Status: Acute The patient is on IV Vancomycin and Zosyn Day #1 of both. Neutropenic patient with WBC of 1.2 Throat cultures pending. Sputum cultures pending. Blood cultures x2 pending. Patient was positive for C. Diff. Discussion with the family, specifically the patient's daughter Lucy reveals that the patient had expressed wanting everything to be done prior to starting his chemo. Patient will remain full code. There was concern for the patient not having anything to eat the past 4 days. Will consult surgery for a PEG tube after the patient is more stable. Currently on norepinephrine for pressor support. Repeat lactate 1.3 (2) NSTEMI (non-ST elevated myocardial infarction) Current Visit: Yes Status: Acute Cardiology is on board. Recommended medical management as he is not a candidate for [facility]. Echocardiogram ordered. Fondaparinux ordered per recommendation of cardiology. Will trend troponins. (3) Generalized weakness Current Visit: Yes Status: Acute Admitting diagnosis. Secondary to poor PO intake and diarrhea. See plan above. (4) Clostridium difficile diarrhea Current Visit: Yes Status: Acute The patient is in isolation precautions. Started on oral vancomycin and oral metronidazole Day #1 of both. Reported that the patient's roommate at [facility] had C. Diff. (5) Anemia Current Visit: Yes Status: Acute Recommended transfusions per cardiology to maintain hemoglobin above 8 and preferable above 10. Will transfuse one unit PRBCs and reassess H/H in the AM. Qualifiers: Anemia type: other cause Other causes of anemia: chronic disease, neoplastic Qualified Code(s): D63.0 - Anemia in neoplastic disease (6) Esophageal adenocarcinoma Current Visit: Yes Status: Chronic Most recent chemotherapy 07/25. (7) Neutropenic Current Visit: Yes Status: Acute WBC 1.2 The patient is on precautions for C. Diff as well as neutropenia. Secondary to chemotherapy and radiation for esophageal cancer. Qualifiers: Neutropenia type: unspecified Qualified Code(s): D70.9 - Neutropenia, unspecified (8) DVT prophylaxis Current Visit: No Status: Chronic The patient is on fondaparinux Protonix for GI prophylaxis. History of Present Illness Consult date: 08/03/16 Requesting physician: Rolo Zambrano Reason for consult: pneumonia (with respiratory failure) Chief complaint: weakness History of present illness: This is a 80-year-old male with past medical history significant for esophageal cancer undergoing treatment, cardiomyopathy, COPD, CAD, diabetes, hyperlipidemia , hypertension, PAD, and previous LA who presented to the emergency department for weakness. At baseline 1 week ago the patient was able to be ambulatory on his own. His most recent chemotherapy was on 07/25. Last night the patient had an episode of tachycardia and underwent CTA to rule out PE. He was found to have concerns for pneumonia in the bases of his lungs and was started on zosyn and vancomycin. The patient was hypotenisve and had elevated troponins over 4 at that time and was subsequently transferred to the ICU. The patient remains neutropenic. The patient is unable to give much history himself at this time due to his mental status. He was unaware what year it was or how old he was. The son daughter Lucy was contacted in regards to code status and she stated that before he had started chemotherapy that he wanted everything to be done for him. Although he does not want to be on life support for a prolonged period of time. The patient will remain full code at this time. Past Med Surg Social Fam HX - Past Medical History Medical history: cancer, cardiomyopathy, CHF, COPD, coronary artery disease, diabetes, GERD, hyperlipidemia, hypertension, myocardial infarction, peripheral artery disease, TIA, valvular heart disease Psychiatric history: no psych history - Past Surgical History Surgical History: carotid endarterectomy, coronary bypass (CABG) - Social History Smoking Status: Former smoker Smokeless Tobacco Status: No Alcohol use: none Drug use: none - Family History Father Hx Family Cancer: Yes Mother Living Status: Hx Family Cardiac Disorders: No Hx Family Respiratory Disorders: No Hx Family Cancer: Yes (brain tumor) Medications and Allergies Albuterol Sulfate [Albuterol Inhaler] 2 puff IH Q4H PRN 12/08/14 [History] Cholecalciferol (Vitamin D3) [Vitamin D3] 2,000 unit PO QAM 12/08/14 [History] Clopidogrel [Plavix] 75 mg PO QAM 12/08/14 [History] Furosemide [Lasix] 40 mg PO DAILY 09/01/15 [History] Isosorbide MONOnitrate (24 HR) [Imdur] 30 mg PO DAILY 02/25/16 [History] Nitroglycerin 0.4 mg SL Q5MIN PRN 02/25/16 [History] Spironolactone [Aldactone] 12.5 mg PO QAM 02/25/16 [History] Budesonide/Formoterol 160/4.5 [Symbicort 160/4.5] 2 puff IH BIDR 05/26/16 [ History] Omeprazole [PriLOSEC] 20 mg PO BID 05/26/16 [History] Metoprolol [Lopressor] 12.5 mg PO BID 06/13/16 [History] Prochlorperazine Maleate [Compazine] 10 mg PO Q6HR PRN #40 tablet 06/15/16 [Rx] Ondansetron [Zofran] 8 mg PO Q8HR PRN #60 tablet 06/24/16 [Rx] Magic Mouthwash [Magic Mouthwash BLM] 10 ml PO Q3-4H PRN #240 ml 07/27/16 [Rx] Loperamide [Imodium] 2 mg PO BID #60 capsule 07/29/16 [Rx] OxyCODONE Immed Rel [Roxicodone 5 MG] 5 mg PO Q8HR PRN #90 tablet 07/29/16 [Rx] Allopurinol [Zyloprim 100 MG] 100 mg PO DAILY 08/02/16 [History] Aspirin 81 mg PO DAILY 08/02/16 [History] Insulin ASPART [NovoLOG] 2 - 12 unit SQ ACHS 08/02/16 [History] Lactobacillus Acidophilus [Acidophilus] 1 each PO BID 08/02/16 [History] Lactose-Reduced Food [Ensure Plus] 237 ml PO TID 08/02/16 [History] Levofloxacin [Levaquin] 750 mg PO DAILY #5 tablet 08/02/16 [Rx] Lidocaine/Prilocaine CREAM [Emla] 5 gm TP MOTUWETHFR 08/02/16 [History] Magnesium Hydroxide [Milk of Magnesia] 2,400 mg PO DAILY PRN 08/02/16 [History] Melatonin 5 mg PO HS 08/02/16 [History] Mirtazapine 7.5 mg PO HS 08/02/16 [History] Rosuvastatin Calcium [Crestor] 10 mg PO HS 08/02/16 [History] Sucralfate [Carafate] 1 gm PO ACHS 08/02/16 [History] Allergies No Known Allergies Allergy (Verified 08/02/16 17:40) ROS unobtainable: due to mental status All Systems: A 10-system review of systems was performed and is negative for pertinent findings except as documented above in the HPI. Physical Examination Vital Signs: Vital Signs, Last 4 Hours Pulse Resp BP Pulse Ox 08/03/16 11:00 106 30 123/67 97 08/03/16 10:00 104 30 98/47 93 08/03/16 09:00 106 28 120/41 92 General appearance: no acute distress Eyes: nonicteric ENT: oropharynx dry Auscultation: bilateral: diminished breath sounds, rales Cardiovascular: other (tachycardia with regular rate) Gastrointestinal: normoactive bowel sounds, non-tender, other (distended) Integumentary: normal Extremities: no cyanosis other (Not oriented to time) Results - Laboratory Findings CBC and BMP: 08/03/16 05:00 08/03/16 05:00 PT/INR, D-dimer PT 16.5 Seconds (9.4-12.1) H 08/02/16 17:50 Abnormal lab findings: Abnormal lab results WBC 1.2 K/mcL (4.3-11.1) L 08/03/16 05:00 RBC 2.65 M/mcL (4.19-5.50) L 08/03/16 05:00 Hgb 7.3 g/dL (12.9-16.9) L 08/03/16 05:00 Hct 23.5 % (37.5-50.1) L 08/03/16 05:00 MCH 27.5 pg (28.0-33.3) L 08/03/16 05:00 MCHC 31.1 g/dL (31.6-35.5) L 08/03/16 05:00 RDW 20.0 % (11.5-14.5) H 08/03/16 05:00 Plt Count 130 K/mcL (140-400) L 08/03/16 05:00 Neutrophils # 0.8 K/mcL (1.6-8.9) L 08/03/16 05:00 Lymphocytes # 0.1 K/mcL (0.6-4.6) L 08/03/16 05:00 Nucleated RBCs/100 WBC 5.2 /100 WBC (0) H 08/03/16 05:00 Platelet Estimate Slight Decrease (Normal) L 08/03/16 05:00 Large Platelets Present (Not Present) A 08/03/16 05:00 Polychromasia 1+ (Not Present) A 08/02/16 17:50 Poikilocytosis 1+ (Not Present) A 08/03/16 05:00 Anisocytosis 2+ (Not Present) A 08/03/16 05:00 Microcytosis Present (Not Present) A 08/03/16 05:00 Macrocytosis Present (Not Present) A 08/03/16 05:00 Tear Drop Cells 1+ (Not Present) A 08/03/16 05:00 PT 16.5 Seconds (9.4-12.1) H 08/02/16 17:50 Chloride 117 mEq/L (98-109) H 08/03/16 05:00 Carbon Dioxide 17 mEq/L (19-29) L 08/03/16 05:00 Glucose 69 mg/dL (70-99) L 08/03/16 05:00 POC Glucose 109 (58-89) H 08/03/16 07:04 Calcium 7.6 mg/dL (8.6-10.8) L 08/03/16 05:00 Magnesium 1.4 mg/dL (1.6-2.6) L 08/03/16 05:00 Troponin I 4.84 ng/mL (0-0.03) H* 08/03/16 05:00 Albumin 2.4 g/dL (3.5-5.0) L 08/02/16 17:50 Globulin 3.8 g/dL (2.4-3.5) H 08/02/16 17:50 Albumin/Globulin Ratio 0.6 (1.1-2.2) L 08/02/16 17:50 Urine Protein 30 mg/dL (Neg-Trace) H 08/02/16 18:15 Ur Squamous Epith Cells Many per lpf (None-Few) H 08/02/16 18:15 Stl C. diff Tox A/B PCR See reflex test (Not detect) A 08/03/16 04:50 - Clinical Findings Intake & Output: Intake & Output 08/02/16 08/03/16 08/03/16 23:59 07:59 15:59 Intake Total 1100 / 1100 Balance 1100 / 1100 Consult Discharge Plan - Plan Referrals: Berlin Zaidi [Primary Care Provider] - - Attending Attestation I examined this patient and my medical decision-making was reviewed with the SURVEY RESEARCH ASSOCIATE/PA/Advanced Practice Nurse/Resident Physician. I agree with the documented findings, disposition and treatment plan as described except to the extent set forth below. <Luann Person M - Last Filed: 08/03/16 16:48> Date of Encounter: 08/03/16 All Systems: A 10-system review of systems was performed and is negative for pertinent findings except as documented above in the HPI. Physical Examination Vital Signs: Vital Signs, Last 4 Hours Temp Pulse Resp BP Pulse Ox 08/03/16 16:25 99 F 124 28 119/59 99 08/03/16 16:10 99.4 F 124 30 119/56 08/03/16 15:49 30 97 08/03/16 15:47 31 96 08/03/16 15:00 112 30 133/61 100 08/03/16 14:00 118 26 Results - Laboratory Findings CBC and BMP: 08/03/16 05:00 08/03/16 05:00 PT/INR, D-dimer PT 16.5 Seconds (9.4-12.1) H 08/02/16 17:50 Abnormal lab findings: Abnormal lab results WBC 1.2 K/mcL (4.3-11.1) L 08/03/16 05:00 RBC 2.65 M/mcL (4.19-5.50) L 08/03/16 05:00 Hgb 7.3 g/dL (12.9-16.9) L 08/03/16 05:00 Hct 23.5 % (37.5-50.1) L 08/03/16 05:00 MCH 27.5 pg (28.0-33.3) L 08/03/16 05:00 MCHC 31.1 g/dL (31.6-35.5) L 08/03/16 05:00 RDW 20.0 % (11.5-14.5) H 08/03/16 05:00 Plt Count 130 K/mcL (140-400) L 08/03/16 05:00 Neutrophils # 0.8 K/mcL (1.6-8.9) L 08/03/16 05:00 Lymphocytes # 0.1 K/mcL (0.6-4.6) L 08/03/16 05:00 Nucleated RBCs/100 WBC 5.2 /100 WBC (0) H 08/03/16 05:00 Platelet Estimate Slight Decrease (Normal) L 08/03/16 05:00 Large Platelets Present (Not Present) A 08/03/16 05:00 Polychromasia 1+ (Not Present) A 08/02/16 17:50 Poikilocytosis 1+ (Not Present) A 08/03/16 05:00 Anisocytosis 2+ (Not Present) A 08/03/16 05:00 Microcytosis Present (Not Present) A 08/03/16 05:00 Macrocytosis Present (Not Present) A 08/03/16 05:00 Tear Drop Cells 1+ (Not Present) A 08/03/16 05:00 PT 16.5 Seconds (9.4-12.1) H 08/02/16 17:50 Chloride 117 mEq/L (98-109) H 08/03/16 05:00 Carbon Dioxide 17 mEq/L (19-29) L 08/03/16 05:00 Glucose 69 mg/dL (70-99) L 08/03/16 05:00 Calcium 7.6 mg/dL (8.6-10.8) L 08/03/16 05:00 Magnesium 1.4 mg/dL (1.6-2.6) L 08/03/16 05:00 Troponin I 5.03 ng/mL (0-0.03) H* 08/03/16 13:55 Albumin 2.4 g/dL (3.5-5.0) L 08/02/16 17:50 Globulin 3.8 g/dL (2.4-3.5) H 08/02/16 17:50 Albumin/Globulin Ratio 0.6 (1.1-2.2) L 08/02/16 17:50 Urine Protein 30 mg/dL (Neg-Trace) H 08/02/16 18:15 Ur Squamous Epith Cells Many per lpf (None-Few) H 08/02/16 18:15 Stl C. diff Tox A/B PCR See reflex test (Not detect) A 08/03/16 04:50 - Clinical Findings Intake & Output: Intake & Output 08/03/16 08/03/16 08/03/16 07:59 15:59 23:59 Intake Total 1181 / 1181 0 / 0 Balance 1181 / 1181 0 / 0 - Attending Attestation Patient seen and examined. Labs, radiology, chart personally reviewed. 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 His CODE STATUS was discussed with his family and he remains full code. Due to increased requirement of FiO2 was try noninvasive ventilation at this time and there is a good chance that was fluid resuscitation in case underlying comorbidities he will end up on a ventilator. Cardiovascular: Troponin elevation possibly related to demand ischemia and cardiology has been consulted. Echocardiogram is being ordered. GI: Nutrition per dietary and GI prophylaxis per routine. Patient may need a feeding tube due to his underlying disease. CT abdomen Heme: DVT prophylaxis per routine. ID: Continue antibiotics and plan to de-escalation. Septic shock and follow-up on lactic acid level Renal; urine out put and renal funtion reviewed Endorcine: blood glucose is monitored Lines: all lines checked and no evidence of infections Skin: skin care to prevent pressure ulcers per nursing routine care Overall prognosis is poor. I spent 40 min of Critical Care time with this patient. It involved decision making of high complexity to assess, manipulate, and support vital organ system failure and/or to prevent further life threatening deterioration of the patient' s condition. The time involved in the performance of separately reportable procedures was not counted toward critical care time.
[2016-08-03] MEDS ORDERED: Calcium Gluconate 1,000 MG in D5% in Water 100 ML IVPB PRN ×3 (13:29→14:21)
[2016-08-03] MEDS ORDERED: Potassium Chloride 20 MEQ, Lidocaine 1% 2 ML in D5% in Water 250 ML IVPB PRN ×2 (13:30→14:15)
[2016-08-03] MEDS ORDERED: Potassium Phosphate 44 MEQ in 0.9 % Sodium Chloride 250 ML IVPB PRN (14:21)
[2016-08-03] MEDS: Magnesium Sulfate 2 GM in D5% in Water 100 ML IVPB PRN (15:57)
--- NOTE | 2016-08-03 16:57 | Event Note ---
Date of Encounter: 08/03/16 Time of Encounter: 16:55 Nursing observed patient's HR and RR spike to HR 130's and RR hig 20's/low 30's anytime he hears family in the room. Notably when his x- is in the room. Notably, patient repeats the year is 1976; that was the year he and his ex- . If the room is quiet, his HR settles below 110, and RR into the low 20's. Patient oxygenating well on BiPap. BP 119/59 stable without levophed. Will provide ativan 1mg IVP Q6hr PRN anxiety.
[2016-08-03] MEDS: *HR* LORazepam 2 MG/ML VIAL IVP PRN (17:04)
--- NOTE | 2016-08-03 17:36 | Oncology Inp Consult Note ---
Date of Encounter: 08/04/16 Time of Encounter: 17:00 Assessment and Plan (1) Esophageal adenocarcinoma Status: Chronic Assessment and plan: Not a surgical candidate, on concurrent chemoradiation therapy with treatment interruption twice, status post 3 weekly doses of chemotherapy tolerated poorly due to acute renal failure and infectious complications. On antibiotic treatment for possible pneumonia, C. difficile colitis CT scan of the abdomen revealed colitis Hypotension off levophed. Transfuse to keep Hgb over 8g. Neupogen added, ANC 0.8, sec to chemotherapy, demargination due to infection/ inflammation. Hold Rx for esophageal carcinoma. Patient's overall status, plan of care discussed with family bedside and ICU staff. - Data of Consult Requesting Physician: Hiral Jerome Primary Care Provider: Berlin Zaidi - Consult Narrative Reason for consult: esophageal ca, colitis History of present illness: 80-year-old male with medical history significant for congestive heart failure, myocardial infarction, chronic emphysema, dyspnea on exertion, hypertension, status post vascular studies, carotoid endarterectomy bilateral, chronic kidney disease, creatinine at 1.6 last several years, patient was seen in 2015 for abnormal protein electrophoresis. Patient also has a medical history of follow- up long segment Mckeon's esophagus with history of hematemesis in 2014 and again in May 2016 when he was hospitalized. Patient underwent endoscopy that showed mucosal changes partly secondary to Mckeon's disease in the lower third. There were multiple nodules/masses 1-2 cm which were biopsied. Biopsy showed esophageal adenocarcinoma. CT chest rt apex pleural thickening-- unchanged from , increased since . Stable mediastinal adenopathy He had an endoscopic ultrasound in June 2016 and was staged as [id number] -Patient got a second opinion from [facility] and he was felt that he is not a surgical candidate, patient started concurrent chemoradiation therapy as definitive treatment. -After first week of carbotaxol low-dose treatment patient developed worsening of renal insufficiency and was hospitalized he was also treated for pneumonia and interruption of chemotherapy and radiation. First round of Carbo Taxol 07/06/2016 and carboplatin was held since then. He had received 2 further weekly doses of low-dose Taxol, last dose on 2016. His dose due this week was held due to tachycardia and declining performance status. Patient currently is in the residential prior to this hospitalization. Lab work showed neutropenia during clinic visit. Likely consent about his poor eating habits and wanted a G-tube placement. Patient was recommended hospitalization and was brought into the emergency room was noted to be tachycardic and further evaluation with CT angiogram showed bilateral lower lobe pneumonia changes. Patient was hospitalized for further evaluation and treatment and also due to his vital signs. Troponin cardiology on board currently off the Levophed C. difficile positive with complaints of diarrhea on Flagyl and broad-spectrum antibiotics. Past Med Surg Social Fam HX - Past Medical History Medical history: cancer, cardiomyopathy, CHF, COPD, coronary artery disease, diabetes, GERD, hyperlipidemia, hypertension, myocardial infarction, peripheral artery disease, TIA, valvular heart disease Psychiatric history: no psych history - Past Surgical History Surgical History: carotid endarterectomy, coronary bypass (CABG) - Social History Smoking Status: Former smoker Smokeless Tobacco Status: No Alcohol use: none Drug use: none - Family History Father Hx Family Cancer: Yes Mother Living Status: Hx Family Cardiac Disorders: No Hx Family Respiratory Disorders: No Hx Family Cancer: Yes (brain tumor) Medications and Allergies Albuterol Sulfate [Albuterol Inhaler] 2 puff IH Q4H PRN 12/08/14 [History] Cholecalciferol (Vitamin D3) [Vitamin D3] 2,000 unit PO QAM 12/08/14 [History] Clopidogrel [Plavix] 75 mg PO QAM 12/08/14 [History] Furosemide [Lasix] 40 mg PO DAILY 09/01/15 [History] Isosorbide MONOnitrate (24 HR) [Imdur] 30 mg PO DAILY 02/25/16 [History] Nitroglycerin 0.4 mg SL Q5MIN PRN 02/25/16 [History] Spironolactone [Aldactone] 12.5 mg PO QAM 02/25/16 [History] Budesonide/Formoterol 160/4.5 [Symbicort 160/4.5] 2 puff IH BIDR 05/26/16 [ History] Omeprazole [PriLOSEC] 20 mg PO BID 05/26/16 [History] Metoprolol [Lopressor] 12.5 mg PO BID 06/13/16 [History] Prochlorperazine Maleate [Compazine] 10 mg PO Q6HR PRN #40 tablet 06/15/16 [Rx] Ondansetron [Zofran] 8 mg PO Q8HR PRN #60 tablet 06/24/16 [Rx] Magic Mouthwash [Magic Mouthwash BLM] 10 ml PO Q3-4H PRN #240 ml 07/27/16 [Rx] Loperamide [Imodium] 2 mg PO BID #60 capsule 07/29/16 [Rx] OxyCODONE Immed Rel [Roxicodone 5 MG] 5 mg PO Q8HR PRN #90 tablet 07/29/16 [Rx] Allopurinol [Zyloprim 100 MG] 100 mg PO DAILY 08/02/16 [History] Aspirin 81 mg PO DAILY 08/02/16 [History] Insulin ASPART [NovoLOG] 2 - 12 unit SQ ACHS 08/02/16 [History] Lactobacillus Acidophilus [Acidophilus] 1 each PO BID 08/02/16 [History] Lactose-Reduced Food [Ensure Plus] 237 ml PO TID 08/02/16 [History] Levofloxacin [Levaquin] 750 mg PO DAILY #5 tablet 08/02/16 [Rx] Lidocaine/Prilocaine CREAM [Emla] 5 gm TP MOTUWETHFR 08/02/16 [History] Magnesium Hydroxide [Milk of Magnesia] 2,400 mg PO DAILY PRN 08/02/16 [History] Melatonin 5 mg PO HS 08/02/16 [History] Mirtazapine 7.5 mg PO HS 08/02/16 [History] Rosuvastatin Calcium [Crestor] 10 mg PO HS 08/02/16 [History] Sucralfate [Carafate] 1 gm PO ACHS 08/02/16 [History] Allergies No Known Allergies Allergy (Verified 08/02/16 17:40) ROS unobtainable: due to mental status Review of systems: received ativan dose Oncology - Exam - Constitutional Vitals: Temp Pulse Resp BP Pulse Ox 99 F 104 24 89/58 100 08/03/16 16:25 08/03/16 17:00 08/03/16 17:00 08/03/16 17:00 08/03/16 17:00 General appearance: average body habitus - Head Head exam: Present: atraumatic, normal inspection - ENT ENT exam: Present: mucous membranes dry - Neck Neck exam: Present: normal inspection - Respiratory Respiratory exam: Present: decreased breath sounds - Cardiovascular Cardiovascular exam: Present: +S1, +S2, tachycardia - GI/Abdominal GI/Abdominal exam: Present: distended, soft Additional comments: non tender - Extremities Exam Extremities exam: Present: normal inspection - Neurological Exam Additional comments: sedated, neuro exam not completed - Skin Skin exam: Present: dry, warm Oncology - Results - Labs Labs: Cardiac Enzymes 08/03/16 Range/Units 13:55 Troponin I 5.03 H* (0-0.03) ng/mL Consult Discharge Plan - Plan Referrals: Berlin Zaidi [Primary Care Provider] -
[2016-08-03] MEDS ORDERED: *HR* Enoxaparin 30 MG/0.3 ML SYRINGE SQ SCH (18:00)
[2016-08-03] MEDS: Melatonin 3 MG TABLET PO SCH (20:16)
[2016-08-03] MEDS: Mirtazapine 15 MG TABLET PO SCH (20:16)
[2016-08-03] MEDS ORDERED: Insulin LISPRO 300 UNITS/3 ML VIAL SQ SCH (21:00)
[2016-08-04] MEDS: 0.9 % Sodium Chloride 1,000 ML IVC SCH ×3 (03:00→17:26)
[2016-08-04 03:41] LABS: Basophils % 0.6 %; Eosinophils % 0.2 %; Hemoglobin 8.6 g/dL (12.9-16.9); Immature Granulocytes % 1.5 % (0-4); Lymphocytes # 0.1 K/mcL (0.6-4.6); Lymphocytes % 1.5 %; Mean Corpuscular HGB Conc 30.7 g/dL (31.6-35.5); Mean Corpuscular Hemoglobin 27.3 pg (28.0-33.3); Mean Corpuscular Volume 88.9 fL (83.0-100.0); Mean Platelet Volume 10.9 fL (9.4-12.4); Monocytes # 0.5 K/mcL (0.0-1.3); Monocytes % 9.4 %; Neutrophils # 4.6 K/mcL (1.6-8.9); Nucleated Red Blood Cells 1.3 /100 WBC (0); Platelet Count 135 K/mcL (140-400); Red Blood Count 3.15 M/mcL (4.19-5.50); Red Cell Distribution Width 19.6 % (11.5-14.5); Segmented Neutrophils % 86.8 %
[2016-08-04 03:54] LABS: Ionized Calcium 1.12 mmol/L (1.15-1.35)
[2016-08-04 03:58] LABS: BUN/Creatinine Ratio 17 (6-26); Blood Urea Nitrogen 18 mg/dL (8-26); Carbon Dioxide 14 mEq/L (19-29); Chloride 122 mEq/L (98-109); Glucose 88 mg/dL (70-99); Magnesium 1.6 mg/dL (1.6-2.6); Osmolality,Calculated 297 (280-300); Phosphorous 3.3 mg/dL (2.3-4.7); Potassium 4.1 mEq/L (3.5-4.5); Sodium 143 mEq/L (136-145); eGFR For African Americans > 60 (> 60); eGFR For Non-African Americans > 60 (> 60)
[2016-08-04] MEDS: Magnesium Sulfate 2 GM in D5% in Water 100 ML IVPB PRN (04:20)
[2016-08-04 04:35] LABS: Anisocytosis 1+ (Not Present); Large Platelets Present (Not Present); Platelet Estimate Normal (Normal)
[2016-08-04 04:37] LABS: Poikilocytosis 1+ (Not Present)
[2016-08-04] MEDS: Vancomycin 1,250 MG in D5% in Water 250 ML IVPB SCH (06:12)
[2016-08-04] MEDS: *HR* Fondaparinux 2.5 MG/0.5 ML SYRINGE SQ SCH (06:12)
--- NOTE | 2016-08-04 08:14 | ECHO - Doppler Report ---
Echocardiogram Name: Sunil Angel Date of Study: 08/03/2016 Date: 1935 Ht: 73.0 in Medical Record#: [id number] Age: 80 Wt: 165.0 lb Gender: Male BSA: 1.98 Order #: [id number] Location: [facility] Room #: 12 Reading Physician: Roll Scale Man: Augusto Clark RDCS Ordering Physician: Dennis Rincon DO Primary Physician: Indications: Hypotension Impressions: Technically sub-optimal due to poor echocardiographic windows and clinical status. Sinus tachycardia. Heart rate was in the 130's during this study. Mild-moderate LV systolic dysfunction, LVEF 40%. There are regional wall motion abnormalities, see diagram below. Indeterminate diastolic function. Normal right ventricular size and function. Mild-moderate aortic stenosis. No evidence of pulmonary hypertension. Left Ventricular Wall Motion: Rest Echo Findings The apex, apical inferior, mid inferior, basal inferior, apical septal, mid inferior septal, basal inferior septal, mid anterior septal and basal anterior septal villar were hypokinetic. All other wall segments showed normal motion. Findings: Study Quality * Technically sub-optimal due to poor echocardiographic windows and clinical status. ECG Findings * Sinus tachycardia. Heart rate was in the 130's during this study. Left Ventricle * Mild-moderate LV systolic dysfunction, LVEF 40%. There are regional wall motion abnormalities, see diagram below. * Normal LV chamber size and wall thickness. * Indeterminate diastolic function. Right Ventricle * Normal right ventricular size and function. Left Atrium * Normal left atrial size. Right Atrium * Normal right atrial size. Aorta * Normally sized aortic root. Pericardium * There is no pericardial effusion present. IVC * Normal IVC dimensions and inspiratory collapse. Aortic Valve * Moderately calcified aortic valve leaflets. Valve morphology not well visualized. * Mild-moderate aortic stenosis. * Trace aortic regurgitation. Mitral Valve * Mild mitral annular calcification * No mitral stenosis. * Trace mitral regurgitation. Tricuspid Valve * Tricuspid valve not well visualized. * No tricuspid stenosis. * Trace tricuspid regurgitation. * No evidence of pulmonary hypertension. Pulmonic Valve * Pulmonic valve not well visualized. * No pulmonic stenosis. * No pulmonic regurgitation. History Hypertension Hypercholesteremia Family History of CAD History of CAD/PTCA Coronary Artery Bypass Graft Valvular Disease 11/12/15 a Previous Echo was performed. Measurements: BP: 109/ 52 2D Normal Values RVIDd: 2.50 cm IVSd: 1.20 cm 0.6 - 1.0 cm LVIDd: 5.00 cm 3.7 - 5.6 cm LVPWd: .80 cm 0.6 - 1.1 cm LVIDs: 4.00 cm 1.5 - 3.6 cm AO: 3.20 cm < 4.0 cm LVOT Diam: 2.00 cm LA volume: 32 Aortic Valve Peak Julio Cesar:2.67 m/sec Peak Grad:29.00 mmHg Mean Grad:18.00 mmHg Valve Area:1.50 cm2 Tricuspid Valve TV Regurg Peak Grad: 24.00mmHg TV Regurg Peak Julio Cesar: 2.46m/sec Updated by Dank Luevano MD, [facility] on 08/04/2016 8:07:41 AM electronically signed on 08/04/2016 8:08:12 AM with status of Final Wall Motion [place]: 1=Normal, 2=Hypokinesis, 3=Akinesis, 4=Dyskinesis, 5=Aneurysmal, 6=Hyperkinetic, X=Not Visualized (Blank)=Missing
[2016-08-04] MEDS: Budesonide/Formoterol 160/4.5 MDI IH SCH ×2 (08:21→20:08)
[2016-08-04] MEDS: Vancomycin Oral Soln 250 MG/2.5 ML UDC PO SCH ×4 (09:12→20:56)
[2016-08-04] MEDS: Piperacillin/Tazobactam 3.375 GM in D5% in Water (Mini-Bag+) 100 ML IVPB SCH ×2 (09:13→17:26)
[2016-08-04] MEDS: Lactobacillus 1 EACH CAP.SPRINK PO SCH ×2 (09:14→20:57)
[2016-08-04] MEDS: Furosemide 40 MG TABLET PO SCH (09:14)
[2016-08-04] MEDS: Insulin LISPRO 300 UNITS/3 ML VIAL SQ SCH (09:14)
[2016-08-04] MEDS: Aspirin 81 MG TAB.CHEW PO SCH (09:14)
[2016-08-04] MEDS: Pantoprazole 40 MG VIAL IVP SCH (09:15)
[2016-08-04] MEDS: Cholecalciferol (D-3) 1,000 UNIT TABLET PO SCH (09:15)
--- NOTE | 2016-08-04 09:19 | Pulmonology Progress Note ---
<Dennis Rincon - Last Filed: 08/04/16 12:26> Date of Encounter: 08/04/16 Time of Encounter: 09:00 Assessment and Plan (1) HCAP (healthcare-associated pneumonia) Current Visit: No Status: Acute The patient is on IV Vancomycin and Zosyn Day #2 of both. Neutropenic patient with WBC of 5.3 Neupogen was given once yesterday per oncology. Throat cultures negative for group A strep. Sputum cultures not able to be collected as the patient's cough is currently nonproductive. Blood cultures x2 preliminary no growth. Patient was positive for C. Diff. Will have further discussion today regarding the patient's code status. There was concern for the patient not having anything to eat the past 4 days. Will discuss possible consult to surgery for a PEG tube after the family has come to a consensus as to how they want to proceed. He is currently able to tolerate some applesauce PO with his oral medications. Currently on norepinephrine for pressor support. Repeat lactate 1.4 (2) NSTEMI (non-ST elevated myocardial infarction) Current Visit: Yes Status: Acute Fondaparinux ordered per recommendation of cardiology. On daily aspirin and plavix. On statin. Will hold beta juhi at this time due to needing levophed for pressure support. Will continue to monitor and maintain hemoglobin above 8. (3) Clostridium difficile diarrhea Current Visit: Yes Status: Acute The patient is in isolation precautions. Patient has severe C. Diff colitis as he has hypotension (pharmalogically corrected). CT abdomen and pelvis 08/03: There are mild air-fluid levels throughout the colon concerning for colitis. No obvious wall thickening or pericolonic inflammatory changes to suggest C. Difficile. Started on oral vancomycin and oral metronidazole Day #2 of both. Will continue with 10-14 day course depending or response. Rectal tube in place currently. Vancomycin dose as been adjusted to 500mg Q6hr as per protocol for severe C. Diff colitis. (4) Anemia Current Visit: Yes Status: Acute Maintain hemoglobin above 8. Continue to monitor. 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 Oncology consulted. Will hold chemotherapy and radiations treatments due to acute illness. (6) Neutropenic Current Visit: Yes Status: Acute Absolute neutrophil count was 800 yesterday. Neupogen given yesterday per oncology. ANC today 4,600. Qualifiers: Neutropenia type: unspecified Qualified Code(s): D70.9 - Neutropenia, unspecified (7) DVT prophylaxis Current Visit: No Status: Chronic On fondaparinux. Protonix for GI prophylaxis. Subjective Principal diagnosis: HCAP Interval history: The patient is seen and examined. Now required BiPAP for adequate oxygenation. Will saturate at 100% on 50% FiO2, but quickly desaturates to 90% or less when taking his PO medications. Son is present in the room. Discussions have been started for changing code status. The son states that he will have a conference with the rest of his family members later this morning and plans will be made at that time. Objective PUL Vital signs: Last Vital Signs Temp 97.9 F 08/04/16 07:34 Pulse 93 08/04/16 06:00 Resp 20 08/04/16 06:00 BP 128/61 08/04/16 06:00 Pulse Ox 100 08/04/16 06:00 General appearance: other (Responds to commands. On BiPAP) Eyes: nonicteric ENT: oropharynx moist Neck: supple Effort: other (on BiPAP) Auscultation: bilateral: rales Cardiovascular: regular rate and rhythm Gastrointestinal: normoactive bowel sounds, other (distended, abdomen is softer than yesterday.) Integumentary: normal Extremities: no cyanosis non-focal exam, other (continues to be disoriented to time) Results - Laboratory Findings CBC and BMP: 08/04/16 03:30 08/04/16 03:30 PT/INR, D-dimer PT 16.5 Seconds (9.4-12.1) H 08/02/16 17:50 Abnormal lab findings: Abnormal lab results RBC 3.15 M/mcL (4.19-5.50) L 08/04/16 03:30 Hgb 8.6 g/dL (12.9-16.9) L 08/04/16 03:30 Hct 28.0 % (37.5-50.1) L 08/04/16 03:30 MCH 27.3 pg (28.0-33.3) L 08/04/16 03:30 MCHC 30.7 g/dL (31.6-35.5) L 08/04/16 03:30 RDW 19.6 % (11.5-14.5) H 08/04/16 03:30 Plt Count 135 K/mcL (140-400) L 08/04/16 03:30 Lymphocytes # 0.1 K/mcL (0.6-4.6) L 08/04/16 03:30 Nucleated RBCs/100 WBC 1.3 /100 WBC (0) H 08/04/16 03:30 Large Platelets Present (Not Present) A 08/04/16 03:30 Polychromasia 1+ (Not Present) A 08/02/16 17:50 Poikilocytosis 1+ (Not Present) A 08/04/16 03:30 Anisocytosis 1+ (Not Present) A 08/04/16 03:30 Microcytosis Present (Not Present) A 08/03/16 05:00 Macrocytosis Present (Not Present) A 08/03/16 05:00 Tear Drop Cells 1+ (Not Present) A 08/03/16 05:00 PT 16.5 Seconds (9.4-12.1) H 08/02/16 17:50 Chloride 122 mEq/L (98-109) H 08/04/16 03:30 Carbon Dioxide 14 mEq/L (19-29) L 08/04/16 03:30 POC Glucose 95 (58-89) H 08/04/16 07:04 Calcium 8.0 mg/dL (8.6-10.8) L 08/04/16 03:30 Ionized Calcium 1.12 mmol/L (1.15-1.35) L 08/04/16 03:30 Troponin I 4.79 ng/mL (0-0.03) H* 08/03/16 20:30 Albumin 2.4 g/dL (3.5-5.0) L 08/02/16 17:50 Globulin 3.8 g/dL (2.4-3.5) H 08/02/16 17:50 Albumin/Globulin Ratio 0.6 (1.1-2.2) L 08/02/16 17:50 Urine Protein 30 mg/dL (Neg-Trace) H 08/02/16 18:15 Ur Squamous Epith Cells Many per lpf (None-Few) H 08/02/16 18:15 Stl C. diff Tox A/B PCR See reflex test (Not detect) A 08/03/16 04:50 - Clinical Findings Intake & Output: Intake & Output 08/03/16 08/04/16 08/04/16 23:59 07:59 15:59 Intake Total 1504 / 1504 1100 / 1100 Output Total 700 / 700 525 / 525 Balance 804 / 804 575 / 575 Consult Discharge Plan - Plan Referrals: [place] Zaidi [Primary Care Provider] - - Attending Attestation I examined this patient and my medical decision-making was reviewed with the MANAGER SAS/PA/Advanced Practice Nurse/Resident Physician. I agree with the documented findings, disposition and treatment plan as described except to the extent set forth below. <Luann Person M - Last Filed: 08/04/16 12:34> Date of Encounter: 08/04/16 Objective PUL Vital signs: Last Vital Signs Temp 97.9 F 08/04/16 07:34 Pulse 101 08/04/16 11:00 Resp 23 08/04/16 11:00 BP 108/60 08/04/16 11:00 Pulse Ox 100 08/04/16 11:00 Results - Laboratory Findings CBC and BMP: 08/04/16 03:30 08/04/16 03:30 PT/INR, D-dimer PT 16.5 Seconds (9.4-12.1) H 08/02/16 17:50 Abnormal lab findings: Abnormal lab results RBC 3.15 M/mcL (4.19-5.50) L 08/04/16 03:30 Hgb 8.6 g/dL (12.9-16.9) L 08/04/16 03:30 Hct 28.0 % (37.5-50.1) L 08/04/16 03:30 MCH 27.3 pg (28.0-33.3) L 08/04/16 03:30 MCHC 30.7 g/dL (31.6-35.5) L 08/04/16 03:30 RDW 19.6 % (11.5-14.5) H 08/04/16 03:30 Plt Count 135 K/mcL (140-400) L 08/04/16 03:30 Lymphocytes # 0.1 K/mcL (0.6-4.6) L 08/04/16 03:30 Nucleated RBCs/100 WBC 1.3 /100 WBC (0) H 08/04/16 03:30 Large Platelets Present (Not Present) A 08/04/16 03:30 Polychromasia 1+ (Not Present) A 08/02/16 17:50 Poikilocytosis 1+ (Not Present) A 08/04/16 03:30 Anisocytosis 1+ (Not Present) A 08/04/16 03:30 Microcytosis Present (Not Present) A 08/03/16 05:00 Macrocytosis Present (Not Present) A 08/03/16 05:00 Tear Drop Cells 1+ (Not Present) A 08/03/16 05:00 PT 16.5 Seconds (9.4-12.1) H 08/02/16 17:50 Chloride 122 mEq/L (98-109) H 08/04/16 03:30 Carbon Dioxide 14 mEq/L (19-29) L 08/04/16 03:30 POC Glucose 95 (58-89) H 08/04/16 07:04 Calcium 8.0 mg/dL (8.6-10.8) L 08/04/16 03:30 Ionized Calcium 1.12 mmol/L (1.15-1.35) L 08/04/16 03:30 Troponin I 4.79 ng/mL (0-0.03) H* 08/03/16 20:30 Albumin 2.4 g/dL (3.5-5.0) L 08/02/16 17:50 Globulin 3.8 g/dL (2.4-3.5) H 08/02/16 17:50 Albumin/Globulin Ratio 0.6 (1.1-2.2) L 08/02/16 17:50 Urine Protein 30 mg/dL (Neg-Trace) H 08/02/16 18:15 Ur Squamous Epith Cells Many per lpf (None-Few) H 08/02/16 18:15 Stl C. diff Tox A/B PCR See reflex test (Not detect) A 08/03/16 04:50 - Clinical Findings Intake & Output: Intake & Output 08/03/16 08/04/16 08/04/16 23:59 07:59 15:59 Intake Total 1504 / 1504 1100 / 1100 1250 / 1250 Output Total 700 / 700 525 / 525 Balance 804 / 804 575 / 575 1250 / 1250 - Attending Attestation Patient seen and examined. Labs, radiology, chart personally reviewed. Agree with resident's history and physical, assessment, plan with following comments: ARBITRATOR: Patient follows commands, however he is confused to time and lethargic. Pulmonary: Patient has underlying chronic lung disease and both resuscitation overall his pulmonary status is tenuous and continue NIV. Palliative care consultation to clarify patient's CODE STATUS with the family. Cardiovascular: stable GI: Nutrition per dietary and GI prophylaxis per routine Heme: DVT prophylaxis per routine ID: Continue antibiotics and plan to de-escalation. Renal; urine out put and renal funtion reviewed Endorcine: blood glucose is monitored Lines: all lines checked and no evidence of infections Skin: skin care to prevent pressure ulcers per nursing routine care Overall prognosis is poor
--- NOTE | 2016-08-04 10:22 | Palliative - Consult Note ---
Date of Encounter: 08/04/16 Time of Encounter: 10:25 - Assessment and Plan (1) Dyspnea Current Visit: Yes Status: Acute Assessment and plan: BiPAP support and supplemental oxygen. Nebulizers per respiratory therapy. Suction airway as needed. Position for comfort. Qualifiers: Dyspnea type: unspecified Qualified Code(s): R06.00 - Dyspnea, unspecified (2) Cancer associated pain Current Visit: Yes Status: Acute Assessment and plan: Oxycodone every 8 hours as needed. No use in the past 24 hours. Continue to monitor. (3) Anxiety about health Current Visit: Yes Status: Acute Assessment and plan: lorazepam every 6 hours as needed. One dose in the past 24 hours. Continue to monitor. (4) Goals of care, counseling/discussion Current Visit: Yes Status: Acute Assessment and plan: Goals of care discussion with the patient, ex-/caregiver-Chrissie, and son- Anup (who had discussed case with siblings). Discussed code status and prior advanced directives from the [facility]. Anup indicated that Mr. Angel's last known wish was to remain FULL CODE. Reviewed code status options in detain ( including full code, DNR-Arrest, and DNR-CC). Family continue to support FULL CODE. Mr. Angel is unable to actively participate in conversation due to dyspnea and fatigue. Continue to follow clinical course and further family meetings pending clinical condition. MBS scheduled for later today due to aspiration risk. Will likely need to discuss tank terminal gauger nutrition options. (5) HCAP (healthcare-associated pneumonia) Current Visit: No Status: Acute (6) TREASURE (acute kidney injury) Current Visit: No Status: Acute (7) Clostridium difficile diarrhea Current Visit: Yes Status: Acute (8) Esophageal adenocarcinoma Current Visit: No Status: Chronic Assessment and plan: Oncology following Palliative-CN HPI - Data of Consult Patient: new to practice Consult date: 08/04/16 Requesting Physician: Hiral Jerome Primary Care Provider: [place] Zaidi - Consult Narrative Palliative Care/Comfort Measures: Palliative care Reason for consult: Goals of care History of present illness: Mr. Angel is a 80 year old male [facility] from a local [facility] with chief complaints of weakness and poor appetite. He was found to have HCAP, NSTEMI, and c. diff infection. He was transferred to the ICU for further work- up and treatment. Cardiology consultation recommended medical management. Antibiotic therapy was initiated. Oncology was consulted as the patient has a recent diagnosis of esophageal adenocarcinoma. He recently started chemotherapy and radiation. Last chemotherapy treatment was 07/25/2016. He has been receiving carbotaxol. His scheduled dose of chemotherapy for 2016 was held due to neutropenia. He has only received 3 treatments since initiation. Treatments have been held related to kidney function and neutropenia. Mr. Angel's last hospitalization was in June 2016. He was transferred to local rehabilitation facility due to generalized weakness and failure to thrive. Rehabilitation facility noted that he has had an overall poor appetite that has been declining over the past several weeks. Family/ support system indicates the patient has been overall very fatigued and tired. Appetite has been poor, and he "does not do well with liquids". The palliative care team was consulted given the patient's chronic medical conditions and overall failure to thrive. CC: Hiral Jerome Past Med Surg Social Fam HX - Past Medical History Source: old records reviewed, obtained from family Medical history: cancer (esophageal), cardiomyopathy, CHF, COPD, coronary artery disease, diabetes, GERD, hyperlipidemia, hypertension, myocardial infarction, peripheral artery disease, TIA, valvular heart disease Psychiatric history: no psych history - Past Surgical History Surgical History: angioplasty/stent, carotid endarterectomy, coronary bypass ( CABG) - Social History Smoking Status: Former smoker Smokeless Tobacco Status: No Alcohol use: none Drug use: none Current living situation: [facility] Activity Level: Mostly sedentary - Family History Father Hx Family Cancer: Yes Mother Living Status: Hx Family Cardiac Disorders: No Hx Family Respiratory Disorders: No Hx Family Cancer: Yes (brain tumor) Medications and Allergies Albuterol Sulfate [Albuterol Inhaler] 2 puff IH Q4H PRN 12/08/14 [History] Cholecalciferol (Vitamin D3) [Vitamin D3] 2,000 unit PO QAM 12/08/14 [History] Clopidogrel [Plavix] 75 mg PO QAM 12/08/14 [History] Furosemide [Lasix] 40 mg PO DAILY 09/01/15 [History] Isosorbide MONOnitrate (24 HR) [Imdur] 30 mg PO DAILY 02/25/16 [History] Nitroglycerin 0.4 mg SL Q5MIN PRN 02/25/16 [History] Spironolactone [Aldactone] 12.5 mg PO QAM 02/25/16 [History] Budesonide/Formoterol 160/4.5 [Symbicort 160/4.5] 2 puff IH BIDR 05/26/16 [ History] Omeprazole [PriLOSEC] 20 mg PO BID 05/26/16 [History] Metoprolol [Lopressor] 12.5 mg PO BID 06/13/16 [History] Prochlorperazine Maleate [Compazine] 10 mg PO Q6HR PRN #40 tablet 06/15/16 [Rx] Ondansetron [Zofran] 8 mg PO Q8HR PRN #60 tablet 06/24/16 [Rx] Magic Mouthwash [Magic Mouthwash BLM] 10 ml PO Q3-4H PRN #240 ml 07/27/16 [Rx] Loperamide [Imodium] 2 mg PO BID #60 capsule 07/29/16 [Rx] OxyCODONE Immed Rel [Roxicodone 5 MG] 5 mg PO Q8HR PRN #90 tablet 07/29/16 [Rx] Allopurinol [Zyloprim 100 MG] 100 mg PO DAILY 08/02/16 [History] Aspirin 81 mg PO DAILY 08/02/16 [History] Insulin ASPART [NovoLOG] 2 - 12 unit SQ ACHS 08/02/16 [History] Lactobacillus Acidophilus [Acidophilus] 1 each PO BID 08/02/16 [History] Lactose-Reduced Food [Ensure Plus] 237 ml PO TID 08/02/16 [History] Levofloxacin [Levaquin] 750 mg PO DAILY #5 tablet 08/02/16 [Rx] Lidocaine/Prilocaine CREAM [Emla] 5 gm TP MOTUWETHFR 08/02/16 [History] Magnesium Hydroxide [Milk of Magnesia] 2,400 mg PO DAILY PRN 08/02/16 [History] Melatonin 5 mg PO HS 08/02/16 [History] Mirtazapine 7.5 mg PO HS 08/02/16 [History] Rosuvastatin Calcium [Crestor] 10 mg PO HS 08/02/16 [History] Sucralfate [Carafate] 1 gm PO ACHS 08/02/16 [History] Allergies No Known Allergies Allergy (Verified 08/02/16 17:40) ROS unobtainable: due to mental status Palliative Care-Exam - Constitutional Vitals: Temp Pulse Resp BP Pulse Ox 97.9 F 98 26 117/58 100 08/04/16 07:34 08/04/16 10:00 08/04/16 10:00 08/04/16 10:00 08/04/16 10:00 General appearance: Present: average body habitus, cooperative, no acute distress Exam: 80 year old male patient appearing chronically ill, on BiPAP, follows short commands and moves extremities. - Eye Eye exam: Present: EOMI Pupils: Present: PERRL - ENT ENT exam: Present: mucous membranes dry - Expanded ENT Exam Teeth exam: Present: edentulous - Expanded Neck Exam Neck exam: Absent: tracheal deviation - Respiratory Respiratory exam: Present: accessory muscle use, rhonchi, tachypnea ( respiratory rate 28). Absent: respiratory distress Additional comments: moist productive cough with sepulveda sputum - Expanded Respiratory Exam Location: rhonchi: Left, Right, Upper, Lower (audible rhonchi ) - Cardiovascular Cardiovascular exam: Present: RRR. Absent: tachycardia - GI/Abdominal Exam GI/Abdominal exam: Present: normal bowel sounds, soft. Absent: tenderness - Rectal Additional comments: fecal management system in place - Catheter Type: Urethral (Hdez) - Expanded Lower Extremities Exam Knee exam: Present: ecchymosis - Neurological Exam Neurological exam: Present: alert (opens eyes to voice, follows simple commands , unable to hold meaningful conversation ), no focal deficits, strengths equal and symetr throughout - Psychiatric Psychiatric exam: Absent: agitated, anxious - Skin Skin exam: Present: dry, warm Internal Medicine - CN: Reslt - Labs CBC & Chem 7: 08/04/16 03:30 08/04/16 03:30 Labs: Short CBC 08/04/16 Range/Units 03:30 WBC 5.3 D (4.3-11.1) K/mcL Hgb 8.6 L (12.9-16.9) g/dL Hct 28.0 L (37.5-50.1) % Plt Count 135 L (140-400) K/mcL Neutrophils # 4.6 (1.6-8.9) K/mcL BMP 08/04/16 03:30 Sodium 143 Potassium 4.1 Chloride 122 H Carbon Dioxide 14 L BUN 18 Creatinine 1.04 Glucose 88 Calcium 8.0 L Cardiac Enzymes 08/03/16 08/03/16 Range/Units 13:55 20:30 Troponin I 5.03 H* 4.79 H* (0-0.03) ng/mL - ABG Interpretation ABG results: PT/INR, D-dimer PT 16.5 Seconds (9.4-12.1) H 08/02/16 17:50 - Impressions Impressions Abdomen/Pelvis CT 08/03/16 13:00 IMPRESSION: There are mild air-fluid levels throughout the colon concerning for colitis. No obvious wall thickening or pericolonic inflammatory changes to suggest C. Difficile. D/ / Lucy Coley MD / Lucy Coley MD Interpreting Provider: Lucy Coley MD Consult Discharge Plan - Plan Referrals: [place] Zaidi [Primary Care Provider] - Palliative Quality Palliative Quality: Screen for Code Status: Yes, Screen for Goals of Care: Yes, Screen for Pain: Yes, If Pain Regimen Started, Initiate Bowel Regimen: NA, Screen for Nausea/Vomitting: Yes
--- NOTE | 2016-08-04 10:31 | Cardiology Progress Note ---
Addendum entered and electronically signed by Miles Andrade DO 08/04/16 15:15 : Cardiology is signing off. If you have any concerns or questions please feel free to contact us. Original Note: Date of Encounter: 08/04/16 Time of Encounter: 10:29 Assessment and Plan (1) NSTEMI (non-ST elevated myocardial infarction) Current Visit: Yes Status: Acute Troponin elevated at 4.84 with EKG showing lateral ST depression Not a current candidate for [facility] Echo shows a decrease in EF from 50% to 40%. There is multiple mild wall motion abnormalities Recommend medical management Continue aspirin, plavix, and fondaparinux Recommend keeping hemoglobin at 8g/dL or above (preferably 10g/dL) (2) Anemia Current Visit: Yes Status: Acute Maintain hemoglobin above 8. Continue to monitor. Qualifiers: Anemia type: other cause Other causes of anemia: chronic disease, neoplastic Qualified Code(s): D63.0 - Anemia in neoplastic disease Discussion w patient/family: The assessment and plan as outlined above was discussed with the patient and/or family members who expressed understanding and agreement. All questions were answered. Thank you for involving us in the care of your patient. Please call with any questions. Subjective Principal diagnosis: HCAP Interval history: He has since been transitioned to Bipap. He is no longer requiring vasopressors. He is still confused and appears relatively unchanged since yesterday in his mental status. His tachycardia has improved to the high 90's from yesterday. After speaking with the primary team they are discussing code status with family. Objective Vital Signs, Last 4 Hours Temp Pulse Resp BP Pulse Ox 08/04/16 10:00 98 26 117/58 100 08/04/16 09:00 93 26 130/58 100 08/04/16 08:00 93 26 110/56 100 08/04/16 07:34 97.9 F HEENT: Atraumatic Neck: No JVD Cardiac: Reg Rate and Rhythm Lungs: Other (Coarse sounds bilaterally) Abdomen: Soft Skin: No rashes noted on visualized skin Extremities: No Cyanosis, No Edema, Normal Pulses Results 08/04/16 03:30 08/04/16 03:30 Lab Results 08/03/16 08/03/16 08/04/16 13:55 20:30 03:30 WBC 5.3 D Hgb 8.6 L Hct 28.0 L Plt Count 135 L Sodium Potassium Chloride Carbon Dioxide BUN Creatinine Glucose Calcium Magnesium Troponin I 5.03 H* 4.79 H* 08/04/16 03:30 WBC Hgb Hct Plt Count Sodium 143 Potassium 4.1 Chloride 122 H Carbon Dioxide 14 L BUN 18 Creatinine 1.04 Glucose 88 Calcium 8.0 L Magnesium 1.6 Troponin I Consult Discharge Plan - Plan Referrals: [place] Zaidi [Primary Care Provider] -
--- NOTE | 2016-08-04 11:27 | Electrocardiograph Report ---
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
--- NOTE | 2016-08-04 11:33 | Electrocardiograph Report ---
[place] [address] Test Date: 2016-08-02 Pat Name: Sunil Angel Department: 112 Room: 12 Gender: M Phonograph Needle Tip Maker: CONSUELO : 1935 Requested By: Hiral Jerome Order Number: [id number] Reading MD: Evelio Youssef MD Measurements Intervals [place] Rate: 135 P: 73 CT: 173 QRS: 17 QRSD: 108 T: 55 QT: 362 QTc: 441 Interpretive Statements svt likely sinus tachycardia Electronically Signed On 08-04-2016 11:32:19 EDT by Evelio Youssef MD
--- NOTE | 2016-08-04 11:34 | Electrocardiograph Report ---
[address] [place] [address] Test Date: 2016-08-03 Pat Name: Sunil Angel Department: 112 Room: 12 Gender: M Evp: DESHAUN : 1935 Requested By: Rolo Zambrano Order Number: [id number] Reading MD: Evelio Youssef MD Measurements Intervals [place] Rate: 122 P: 47 VT: 198 QRS: 19 QRSD: 110 T: 38 QT: 321 QTc: 393 Interpretive Statements SINUS TACHYCARDIA LATERAL ISCHEMIA Electronically Signed On 08-04-2016 11:32:57 EDT by Evelio Youssef MD
--- NOTE | 2016-08-04 17:43 | Event Note ---
Date of Encounter: 08/04/16 Time of Encounter: 17:19 Reviewed goals of care with the patient and his family (son-Anup, daughter-Lucy , ex-/caregiver-Chrissie, and additional family members) following MBS. STAPLE SIDE LASTER recommended NPO status due to aspiration of PO intake. Explored alternative means of nutrition including NG tube, PEG, and TPN. Mr. Angel indicated he would not want artificial nutrition, but his family challenged his capacity to make decisions. Extensive discussion regarding risks/benefits of alternative mean of nutrition. He is not a candidate for NG tube feedings given his compromised respiratory status, use of BiPAP, and esophageal CA. Family is well aware of risks including (but not limited to) infection, aspiration, respiratory compromise, risk of sedation, etc. Conversation tone was escalated by family due to concerns for the patient "starving to ", and "getting weaker and weaker". Discussed plan of care and recommendations for surgical evaluation for PEG tomorrow. Family continued to raise concerns and escalate tone despite clear plan of care. Explored TPN options with Dr. Person. Once again reviewed indications, risks, and benefits of TPN. At the end of the meeting, Dr. Person summarized plan of care once again. Family appeared agreeable upon departure from the room. Questions and concerns addressed by Dr. Person. In attendance: Jocelin Roque CNP, Dr. Person, Jocelin Womack RN, Dr. Rincon.
[2016-08-04] MEDS: Vancomycin 750 MG in D5% in Water 250 ML IVPB SCH (20:56)
[2016-08-04] MEDS: MetroNIDAZOLE 500 MG/100 ML 500 MG/100 ML BAG IVPB SCH (20:56)
[2016-08-04] MEDS: Mirtazapine 15 MG TABLET PO SCH (20:56)
[2016-08-04] MEDS: Melatonin 3 MG TABLET PO SCH (20:57)
[2016-08-04] MEDS: Norepinephrine 4 MG in D5% in Water 250 ML IVC SCH (20:57)
[2016-08-05] MEDS: Piperacillin/Tazobactam 3.375 GM in D5% in Water (Mini-Bag+) 100 ML IVPB SCH ×4 (00:26→23:33)
[2016-08-05] MEDS: *HR* LORazepam 2 MG/ML VIAL IVP PRN (00:26)
[2016-08-05] MEDS: 0.9 % Sodium Chloride 1,000 ML IVC SCH ×2 (00:26→06:19)
[2016-08-05 03:30] LABS: Hemoglobin 7.9 g/dL (12.9-16.9); Mean Corpuscular HGB Conc 31.6 g/dL (31.6-35.5); Mean Corpuscular Hemoglobin 27.5 pg (28.0-33.3); Mean Corpuscular Volume 87.1 fL (83.0-100.0); Mean Platelet Volume 11.7 fL (9.4-12.4); Nucleated Red Blood Cells 0.5 /100 WBC (0); Platelet Count 142 K/mcL (140-400); Red Blood Count 2.87 M/mcL (4.19-5.50); Red Cell Distribution Width 19.7 % (11.5-14.5)
[2016-08-05 03:31] LABS: Ionized Calcium 1.21 mmol/L (1.15-1.35)
[2016-08-05 03:42] LABS: BUN/Creatinine Ratio 16 (6-26); Blood Urea Nitrogen 18 mg/dL (8-26); Calcium 8.2 mg/dL (8.6-10.8); Carbon Dioxide 15 mEq/L (19-29); Chloride 121 mEq/L (98-109); Glucose 111 mg/dL (70-99); Magnesium 1.9 mg/dL (1.6-2.6); Osmolality,Calculated 299 (280-300); Phosphorous 2.8 mg/dL (2.3-4.7); Potassium 3.3 mEq/L (3.5-4.5); Sodium 143 mEq/L (136-145); eGFR For African Americans > 60 (> 60); eGFR For Non-African Americans > 60 (> 60)
[2016-08-05 03:55] LABS: Lymphocytes # 0.4 K/mcL (0.6-4.6); Monocytes # 0.2 K/mcL (0.0-1.3); Neutrophils # 8.8 K/mcL (1.6-8.9)
[2016-08-05 03:56] LABS: Anisocytosis 2+ (Not Present); Platelet Estimate Normal (Normal)
[2016-08-05] MEDS: Magnesium Sulfate 2 GM in D5% in Water 100 ML IVPB PRN (04:24)
[2016-08-05] MEDS: *HR* Fondaparinux 2.5 MG/0.5 ML SYRINGE SQ SCH (04:24)
[2016-08-05] MEDS: MetroNIDAZOLE 500 MG/100 ML 500 MG/100 ML BAG IVPB SCH ×3 (04:24→20:32)
[2016-08-05] MEDS: Budesonide/Formoterol 160/4.5 MDI IH SCH ×2 (08:02→20:44)
--- NOTE | 2016-08-05 08:43 | Pulmonology Progress Note ---
<Dennis Rincon - Last Filed: 08/05/16 08:39> Date of Encounter: 08/05/16 Time of Encounter: 07:50 Assessment and Plan (1) HCAP (healthcare-associated pneumonia) Current Visit: No Status: Acute The patient is on IV Vancomycin and Zosyn Day #3 of both. Neutropenic patient with WBC of 7.7 Neupogen was given once 08/03 per oncology. Throat cultures negative for group A strep. Sputum cultures not able to be collected as the patient's cough is currently nonproductive. Blood cultures x2 preliminary no growth. Patient was positive for C. Diff. Surgery has been consulted for possible PEG tube placement for nutrition. The patient is not a candidate for an NG tube due to poor respiratory status requiring BiPAP at times and esophageal cancer. The patient is not currently a candidate for TPN as he has active infections. Options were all discussed with family members yesterday evening. (2) NSTEMI (non-ST elevated myocardial infarction) Current Visit: Yes Status: Acute Fondaparinux ordered per recommendation of cardiology. Not able to tolerate PO meds. Will continue to monitor and maintain hemoglobin above 8. Plan 1 unit PRBCs today. Hemoglobin this morning was 7.9. Troponins continue to trend down, 1.75 this morning. (3) Clostridium difficile diarrhea Current Visit: Yes Status: Acute CT abdomen and pelvis 08/03: There are mild air-fluid levels throughout the colon concerning for colitis. No obvious wall thickening or pericolonic inflammatory changes to suggest C. Difficile. The patient has not been able to tolerate PO medications. He was switched to IV metronidazole on 08/04. This is day #2 of IV metronidazole. Will continue with 10 -14 day course depending or response. Rectal tube in place currently. Vancomycin will be given rectally today. It is uncertain how efficacious this will be as the patient is unable to follow complex commands and will likely not be able to retain the medication for an adequate amount of time. (4) Anemia Current Visit: Yes Status: Acute Maintain hemoglobin above 8. Continue to monitor. Will give 1 unit PRBCs today. Qualifiers: Anemia type: other cause Other causes of anemia: chronic disease, neoplastic Qualified Code(s): D63.0 - Anemia in neoplastic disease (5) DVT prophylaxis Current Visit: No Status: Chronic On fondaparinux. Protonix for GI prophylaxis. Subjective Principal diagnosis: HCAP Interval history: The patient is seen and examined. Family members expressed concern on multiple occasions yesterday evening in regards to worries about their father "starving to ." Surgery was consulted yesterday evening for consideration of a PEG tube. Family members are not present at this time today. The patient appears less oriented today. He will respond to his name. Objective PUL Vital signs: Last Vital Signs Temp 98.4 F 08/05/16 07:49 Pulse 119 08/05/16 08:00 Resp 28 08/05/16 08:00 BP 130/62 08/05/16 08:00 Pulse Ox 97 08/05/16 08:00 General appearance: lethargic Eyes: nonicteric ENT: oropharynx moist Neck: supple Effort: normal, other (tachypnic) Auscultation: bilateral: wheezes, rales Cardiovascular: other (tachycardic with regular rhythm) Gastrointestinal: normoactive bowel sounds, soft, non-tender, other (mild distension) Integumentary: other (mottling present over lower extremities) Extremities: cool, other (thready posterior tibial and dorsalis pedis pulses bilaterally) unable to assess due to mental status Results - Laboratory Findings CBC and BMP: 08/05/16 03:13 08/05/16 03:13 PT/INR, D-dimer PT 16.5 Seconds (9.4-12.1) H 08/02/16 17:50 Abnormal lab findings: Abnormal lab results RBC 2.87 M/mcL (4.19-5.50) L 08/05/16 03:13 Hgb 7.9 g/dL (12.9-16.9) L 08/05/16 03:13 Hct 25.0 % (37.5-50.1) L 08/05/16 03:13 MCH 27.5 pg (28.0-33.3) L 08/05/16 03:13 RDW 19.7 % (11.5-14.5) H 08/05/16 03:13 Lymphocytes # 0.4 K/mcL (0.6-4.6) L 08/05/16 03:13 Nucleated RBCs/100 WBC 0.5 /100 WBC (0) H 08/05/16 03:13 Large Platelets Present (Not Present) A 08/04/16 03:30 Polychromasia 1+ (Not Present) A 08/02/16 17:50 Poikilocytosis 1+ (Not Present) A 08/04/16 03:30 Anisocytosis 2+ (Not Present) A 08/05/16 03:13 Microcytosis Present (Not Present) A 08/03/16 05:00 Macrocytosis Present (Not Present) A 08/03/16 05:00 Tear Drop Cells 1+ (Not Present) A 08/03/16 05:00 PT 16.5 Seconds (9.4-12.1) H 08/02/16 17:50 Potassium 3.3 mEq/L (3.5-4.5) L 08/05/16 03:13 Chloride 121 mEq/L (98-109) H 08/05/16 03:13 Carbon Dioxide 15 mEq/L (19-29) L 08/05/16 03:13 Glucose 111 mg/dL (70-99) H 08/05/16 03:13 POC Glucose 99 (58-89) H 08/05/16 07:34 Calcium 8.2 mg/dL (8.6-10.8) L 08/05/16 03:13 Troponin I 1.75 ng/mL (0-0.03) H* 08/05/16 03:13 Albumin 2.4 g/dL (3.5-5.0) L 08/02/16 17:50 Globulin 3.8 g/dL (2.4-3.5) H 08/02/16 17:50 Albumin/Globulin Ratio 0.6 (1.1-2.2) L 08/02/16 17:50 Urine Protein 30 mg/dL (Neg-Trace) H 08/02/16 18:15 Ur Squamous Epith Cells Many per lpf (None-Few) H 08/02/16 18:15 Stl C. diff Tox A/B PCR See reflex test (Not detect) A 08/03/16 04:50 - Clinical Findings Intake & Output: Intake & Output 08/04/16 08/05/16 08/05/16 23:59 07:59 15:59 Intake Total 450 / 450 2504 / 2504 Output Total 500 / 500 475 / 475 Balance -50 / -50 2028 Weight 82.191 kg Consult Discharge Plan - Plan Referrals: [place] Zaidi [Primary Care Provider] - - Attending Attestation I examined this patient and my medical decision-making was reviewed with the [facility]UCK[facility]/PA/Advanced Practice Nurse/Resident Physician. I agree with the documented findings, disposition and treatment plan as described except to the extent set forth below. <Luann Person M - Last Filed: 08/05/16 09:45> Date of Encounter: 08/05/16 Objective PUL Vital signs: Last Vital Signs Temp 98.4 F 08/05/16 07:49 Pulse 115 08/05/16 09:00 Resp 28 08/05/16 09:00 BP 126/60 08/05/16 09:00 Pulse Ox 99 08/05/16 09:00 Results - Laboratory Findings CBC and BMP: 08/05/16 03:13 08/05/16 03:13 PT/INR, D-dimer PT 16.5 Seconds (9.4-12.1) H 08/02/16 17:50 Abnormal lab findings: Abnormal lab results RBC 2.87 M/mcL (4.19-5.50) L 08/05/16 03:13 Hgb 7.9 g/dL (12.9-16.9) L 08/05/16 03:13 Hct 25.0 % (37.5-50.1) L 08/05/16 03:13 MCH 27.5 pg (28.0-33.3) L 08/05/16 03:13 RDW 19.7 % (11.5-14.5) H 08/05/16 03:13 Lymphocytes # 0.4 K/mcL (0.6-4.6) L 08/05/16 03:13 Nucleated RBCs/100 WBC 0.5 /100 WBC (0) H 08/05/16 03:13 Large Platelets Present (Not Present) A 08/04/16 03:30 Polychromasia 1+ (Not Present) A 08/02/16 17:50 Poikilocytosis 1+ (Not Present) A 08/04/16 03:30 Anisocytosis 2+ (Not Present) A 08/05/16 03:13 Microcytosis Present (Not Present) A 08/03/16 05:00 Macrocytosis Present (Not Present) A 08/03/16 05:00 Tear Drop Cells 1+ (Not Present) A 08/03/16 05:00 PT 16.5 Seconds (9.4-12.1) H 08/02/16 17:50 Potassium 3.3 mEq/L (3.5-4.5) L 08/05/16 03:13 Chloride 121 mEq/L (98-109) H 08/05/16 03:13 Carbon Dioxide 15 mEq/L (19-29) L 08/05/16 03:13 Glucose 111 mg/dL (70-99) H 08/05/16 03:13 POC Glucose 99 (58-89) H 08/05/16 07:34 Calcium 8.2 mg/dL (8.6-10.8) L 08/05/16 03:13 Troponin I 1.75 ng/mL (0-0.03) H* 08/05/16 03:13 Albumin 2.4 g/dL (3.5-5.0) L 08/02/16 17:50 Globulin 3.8 g/dL (2.4-3.5) H 08/02/16 17:50 Albumin/Globulin Ratio 0.6 (1.1-2.2) L 08/02/16 17:50 Urine Protein 30 mg/dL (Neg-Trace) H 08/02/16 18:15 Ur Squamous Epith Cells Many per lpf (None-Few) H 08/02/16 18:15 Stl C. diff Tox A/B PCR See reflex test (Not detect) A 08/03/16 04:50 - Clinical Findings Intake & Output: Intake & Output 08/04/16 08/05/16 08/05/16 23:59 07:59 15:59 Intake Total 450 / 450 2604 / 2604 100 / 100 Output Total 500 / 500 475 / 475 Balance -50 / -50 9 / 2129 100 / 100 Weight 82.191 kg - Attending Attestation Patient seen and examined. Labs, radiology, chart personally reviewed. Agree with resident's history and physical, assessment, plan with following comments: [employer]: Patient is more confused today and respond to stimuli, however he is more lethargic. Suspect this is multifactorial from his sepsis and also overall deterioration in his condition. Pulmonary: Very concerned about his pulmonary status with multiple comorbidities and not been able to clear his airway secretion and with his mental status change would be difficult to treat him with noninvasive ventilation. He is at risk of mechanical invasive ventilation. The patient remained full code I did discuss with her son this morning. Yesterday with the palliative care I discussed overall prognosis and plan of care with entire family. Cardiovascular: At this time he is maintaining his blood pressure however is very tenuous. Cardiology follow up). GI: Nutrition is a big issue for the family and I discussed with them different options with old risks associated with each. Surgery consult for PEG tube placement, however TPN is an alternative. Heme: DVT prophylaxis per routine ID: Continue antibiotics and plan to de-escalation Renal; urine out put and renal funtion reviewed Endorcine: blood glucose is monitored Lines: all lines checked and no evidence of infections Skin: skin care to prevent pressure ulcers per nursing routine care Overall prognosis is very poor with multiorgans at risks.
[2016-08-05] MEDS: Lactobacillus 1 EACH CAP.SPRINK PO SCH ×2 (08:51→20:34)
[2016-08-05] MEDS: Vancomycin Oral Soln 250 MG/2.5 ML UDC PO SCH ×4 (08:51→20:35)
[2016-08-05] MEDS: Cholecalciferol (D-3) 1,000 UNIT TABLET PO SCH (08:51)
[2016-08-05] MEDS: Aspirin 81 MG TAB.CHEW PO SCH (08:51)
[2016-08-05] MEDS: Furosemide 40 MG TABLET PO SCH (08:51)
[2016-08-05] MEDS: Vancomycin 750 MG in D5% in Water 250 ML IVPB SCH (09:47)
[2016-08-05] MEDS: Pantoprazole 40 MG VIAL IVP SCH (09:47)
[2016-08-05] MEDS ORDERED: D10% in Water 500 ML IVC PRN (11:00)
--- NOTE | 2016-08-05 11:12 | Event Note ---
Date of Encounter: 08/05/16 Time of Encounter: 10:45 Chart reviewed and case discussed with primary service, palliative, Dr. Thao, as well as primary nurse. Patient's decision when alert and oriented as recently as yesterday 08/05/16 was to NOT have a peg tube placed. We will follow the patient's wishes. After discussion, there would be no benefit to the patient to place a peg tube at this time and there would be no overall improvement in patient prognosis. May consider second surgical opinion if the patient's family is persistent that they would like a peg tube placed.
[2016-08-05] MEDS ORDERED: Furosemide 20 MG/2 ML VIAL IVP ONE (12:45)
--- NOTE | 2016-08-05 13:26 | Palliative Progress Note ---
Date of Encounter: 08/05/16 Time of Encounter: 13:00 - Assessment and plan (1) Dyspnea Current Visit: Yes Status: Acute Assessment and plan: Continues with bronchodilators, atb therapy, supportive oxygen and received IV Furosemide today. Monitor Qualifiers: Dyspnea type: unspecified Qualified Code(s): R06.00 - Dyspnea, unspecified (2) Anxiety Current Visit: Yes Status: Acute Assessment and plan: Utilized low dose Lorazepam x 1 last 24 hours. Monitor (3) Goals of care, counseling/discussion Current Visit: Yes Status: Acute Assessment and plan: Patient with decreased mental status today. Found not to be candidate for PEG by surgery. TPN beginning today per family request. D/W Pt's exwife and daughter currently in room. Attempting to arrange multidisciplinary conference with providers and family re: clinical status, prognosis, and goals of care. - Time Spent With Patient Total time spent is greater than 50% in coordination of care (as documented) at patient's floor/unit and/or counseling patient: 25 - 35 minutes - Subjective Interval history: Patient awake, confused and mumbling speech, difficult to understand. Vitals stable, remains on high flow oxygen. Some mottling of lower extremities. Moist cough noted. Exwife and daughter at bedside. - Constitutional Vitals: Abnormal lab results RBC 2.87 M/mcL (4.19-5.50) L 08/05/16 03:13 Hgb 7.9 g/dL (12.9-16.9) L 08/05/16 03:13 Hct 25.0 % (37.5-50.1) L 08/05/16 03:13 MCH 27.5 pg (28.0-33.3) L 08/05/16 03:13 RDW 19.7 % (11.5-14.5) H 08/05/16 03:13 Lymphocytes # 0.4 K/mcL (0.6-4.6) L 08/05/16 03:13 Nucleated RBCs/100 WBC 0.5 /100 WBC (0) H 08/05/16 03:13 Large Platelets Present (Not Present) A 08/04/16 03:30 Polychromasia 1+ (Not Present) A 08/02/16 17:50 Poikilocytosis 1+ (Not Present) A 08/04/16 03:30 Anisocytosis 2+ (Not Present) A 08/05/16 03:13 Microcytosis Present (Not Present) A 08/03/16 05:00 Macrocytosis Present (Not Present) A 08/03/16 05:00 Tear Drop Cells 1+ (Not Present) A 08/03/16 05:00 PT 16.5 Seconds (9.4-12.1) H 08/02/16 17:50 Potassium 3.3 mEq/L (3.5-4.5) L 08/05/16 03:13 Chloride 121 mEq/L (98-109) H 08/05/16 03:13 Carbon Dioxide 15 mEq/L (19-29) L 08/05/16 03:13 Glucose 111 mg/dL (70-99) H 08/05/16 03:13 POC Glucose 112 (58-89) H 08/05/16 10:47 Calcium 8.2 mg/dL (8.6-10.8) L 08/05/16 03:13 Troponin I 1.75 ng/mL (0-0.03) H* 08/05/16 03:13 Albumin 2.4 g/dL (3.5-5.0) L 08/02/16 17:50 Globulin 3.8 g/dL (2.4-3.5) H 08/02/16 17:50 Albumin/Globulin Ratio 0.6 (1.1-2.2) L 08/02/16 17:50 Urine Protein 30 mg/dL (Neg-Trace) H 08/02/16 18:15 Ur Squamous Epith Cells Many per lpf (None-Few) H 08/02/16 18:15 Stl C. diff Tox A/B PCR See reflex test (Not detect) A 08/03/16 04:50 General appearance: Present: mild distress - Respiratory Additional comments: Rhonchi throughout lung gannon anteriorally. - Cardiovascular Cardiovascular exam: Present: +S1, +S2, tachycardia - GI/Abdominal GI/Abdominal exam: Present: distended, soft Additional comments: rectal tube in place - Additional comments: Hdez with yellow urine - some sediment noted - Extremities Exam Additional comments: generalized edema to upper extremities - Neurological Exam Additional comments: Alert, can state name. Most speech slurred or garbled. - Skin Skin exam: Present: dry, pallor, warm Additional comments: Mottling noted bilateral lower extremities Palliative Quality Palliative Quality: Screen for Code Status: Yes, Screen for Goals of Care: Yes, Screen for Pain: Yes, If Pain Regimen Started, Initiate Bowel Regimen: NA, Screen for Nausea/Vomitting: Yes - Labs CBC & Chem 7: 08/05/16 03:13 08/05/16 03:13 Labs: Laboratory Results - last 24 hr 08/03/16 08/04/16 08/05/16 14:20 19:37 03:13 WBC 9.4 D RBC 2.87 L Hgb 7.9 L Hct 25.0 L MCV 87.1 MCH 27.5 L MCHC 31.6 RDW 19.7 H Plt Count 142 MPV 11.7 Seg Neutrophils % 92.0 Band Neutrophils % 2.0 Lymphocytes % 4.0 Monocytes % 2.0 Neutrophils # 8.8 Lymphocytes # 0.4 L Monocytes # 0.2 Nucleated RBCs/100 WBC 0.5 H Platelet Estimate Normal Anisocytosis 2+ A Sodium Potassium Chloride Carbon Dioxide BUN Creatinine Est GFR ( Amer) Est GFR (Non-Af Amer) BUN/Creatinine Ratio Glucose POC Glucose 91 H Calculated Osmolality Calcium Ionized Calcium Phosphorus Magnesium Troponin I Blood Type O POSITIVE Antibody Screen NEGATIVE Crossmatch See Detail 08/05/16 08/05/16 08/05/16 03:13 03:13 07:34 WBC RBC Hgb Hct MCV MCH MCHC RDW Plt Count MPV Seg Neutrophils % Band Neutrophils % Lymphocytes % Monocytes % Neutrophils # Lymphocytes # Monocytes # Nucleated RBCs/100 WBC Platelet Estimate Anisocytosis Sodium 143 Potassium 3.3 L Chloride 121 H Carbon Dioxide 15 L BUN 18 Creatinine 1.16 Est GFR ( Amer) > 60 Est GFR (Non-Af Amer) > 60 BUN/Creatinine Ratio 16 Glucose 111 H POC Glucose 99 H Calculated Osmolality 299 Calcium 8.2 L Ionized Calcium 1.21 Phosphorus 2.8 Magnesium 1.9 Troponin I 1.75 H* Blood Type Antibody Screen Crossmatch 08/05/16 10:47 WBC RBC Hgb Hct MCV MCH MCHC RDW Plt Count MPV Seg Neutrophils % Band Neutrophils % Lymphocytes % Monocytes % Neutrophils # Lymphocytes # Monocytes # Nucleated RBCs/100 WBC Platelet Estimate Anisocytosis Sodium Potassium Chloride Carbon Dioxide BUN Creatinine Est GFR ( Amer) Est GFR (Non-Af Amer) BUN/Creatinine Ratio Glucose POC Glucose 112 H Calculated Osmolality Calcium Ionized Calcium Phosphorus Magnesium Troponin I Blood Type Antibody Screen Crossmatch - Impressions Impressions Videofluoroscopic Swallow 08/04/16 14:09 IMPRESSION: Delayed swallowing with significant residue seen within the vallecula, with no penetration or aspiration identified. Please see separate speech pathology report for full discussion of findings and recommendations. D/ / Boo Samuel MD / Boo Samuel MD Interpreting Provider: Boo Samuel MD - ABG Interpretation ABG results: PT/INR, D-dimer PT 16.5 Seconds (9.4-12.1) H 08/02/16 17:50 Consult Discharge Plan - Plan Referrals: [place] Zaidi [Primary Care Provider] -
[2016-08-05] MEDS: Ringers Solution, Lactated 1,000 ML IVC SCH (14:04)
--- NOTE | 2016-08-05 16:46 | Event Note ---
Date of Encounter: 08/05/16 Time of Encounter: 16:[address] Person, Dr. Beth, Katelyn - magistrate, ICU nurse commercial sales manager Liliane, primary nurse Antoine Womack, and myself. Family updated on clinical status, including infection, resp status, nutritional status and information regarding PEG and TPN and multi-organ involvement. They are aware pt is not candidate for PEG and risk/benefit of TPN. Discussed goals of care. After 40min discussion, family decided to transition to DNRCC/DNI, and do not desire intubation, CPR, defibrillation if pt condition deteriorates. Provided information re: transition to hospice care if he does not improve. Will f/u on Monday and review clinical status.
[2016-08-05] MEDS ORDERED: Clinimix E 5%-15% SOLUTION 2,000 ML with MVI, adult with vitamin K 10 ML IVC SCH (17:00)
[2016-08-05] MEDS ORDERED: Scopolamine Patch 1.5 MG PATCH.TD72 TD SCH (17:00)
[2016-08-05] MEDS: Mirtazapine 15 MG TABLET PO SCH (20:34)
[2016-08-05] MEDS: Norepinephrine 4 MG in D5% in Water 250 ML IVC SCH (20:34)
[2016-08-05] MEDS: Melatonin 3 MG TABLET PO SCH (20:34)
[2016-08-05] MEDS: *HR* Morphine 2 MG/ML SYRINGE IVP PRN (21:51)
[2016-08-06] MEDS: *HR* LORazepam 2 MG/ML VIAL IVP PRN ×2 (01:18→10:41)
[2016-08-06 03:16] LABS: Basophils % 0.2 %; Eosinophils # 0.1 K/mcL (0.0-0.6); Eosinophils % 0.7 %; Hematocrit 23.5 % (37.5-50.1); Hemoglobin 7.4 g/dL (12.9-16.9); Immature Granulocytes % 6.5 % (0-4); Lymphocytes # 0.1 K/mcL (0.6-4.6); Lymphocytes % 1.6 %; Mean Corpuscular HGB Conc 31.5 g/dL (31.6-35.5); Mean Corpuscular Hemoglobin 27.1 pg (28.0-33.3); Mean Corpuscular Volume 86.1 fL (83.0-100.0); Monocytes # 0.6 K/mcL (0.0-1.3); Monocytes % 7.5 %; Neutrophils # 6.9 K/mcL (1.6-8.9); Platelet Count 128 K/mcL (140-400); Red Blood Count 2.73 M/mcL (4.19-5.50); Red Cell Distribution Width 19.4 % (11.5-14.5); Segmented Neutrophils % 83.5 %
[2016-08-06] MEDS: *HR* Morphine 2 MG/ML SYRINGE IVP PRN ×4 (03:18→19:18)
[2016-08-06 03:22] LABS: Ionized Calcium 1.24 mmol/L (1.15-1.35)
[2016-08-06 03:31] LABS: BUN/Creatinine Ratio 15 (6-26); Blood Urea Nitrogen 17 mg/dL (8-26); Calcium 8.2 mg/dL (8.6-10.8); Carbon Dioxide 17 mEq/L (19-29); Chloride 119 mEq/L (98-109); Glucose 180 mg/dL (70-99); Magnesium 1.8 mg/dL (1.6-2.6); Osmolality,Calculated 302 (280-300); Phosphorous 2.7 mg/dL (2.3-4.7); Potassium 2.9 mEq/L (3.5-4.5); Sodium 143 mEq/L (136-145); eGFR For African Americans > 60 (> 60); eGFR For Non-African Americans > 60 (> 60)
[2016-08-06 03:46] LABS: Anisocytosis 2+ (Not Present); Platelet Estimate Normal (Normal); Poikilocytosis 2+ (Not Present); Tear Drop Cells 1+ (Not Present)
[2016-08-06] MEDS ORDERED: Potassium Chloride 40 MEQ, Lidocaine 1% 2 ML in D5% in Water 500 ML IVPB ONE (04:14)
[2016-08-06] MEDS: Magnesium Sulfate 2 GM in D5% in Water 100 ML IVPB PRN (04:33)
[2016-08-06] MEDS ORDERED: *HR* Morphine 2 MG/ML SYRINGE IVP ONE (04:46)
[2016-08-06] MEDS ORDERED: *HR* Morphine 2 MG/ML SYRINGE IVP PRN ×4 (04:54→07:35)
[2016-08-06] MEDS ORDERED: 0.9 % Sodium Chloride 500 ML ONE (05:26)
[2016-08-06] MEDS: MetroNIDAZOLE 500 MG/100 ML 500 MG/100 ML BAG IVPB SCH ×3 (05:28→20:32)
[2016-08-06] MEDS: *HR* Fondaparinux 2.5 MG/0.5 ML SYRINGE SQ SCH (06:39)
[2016-08-06] MEDS: Budesonide/Formoterol 160/4.5 MDI IH SCH ×2 (07:42→19:48)
[2016-08-06] MEDS ORDERED: D10% in Water 500 ML IVC PRN (09:29)
[2016-08-06] MEDS: Cholecalciferol (D-3) 1,000 UNIT TABLET PO SCH (10:02)
[2016-08-06] MEDS: Norepinephrine 4 MG in D5% in Water 250 ML IVC SCH (10:02)
[2016-08-06] MEDS: Aspirin 81 MG TAB.CHEW PO SCH (10:03)
[2016-08-06] MEDS: Vancomycin Oral Soln 250 MG/2.5 ML UDC PO SCH ×4 (10:03→21:05)
[2016-08-06] MEDS: Lactobacillus 1 EACH CAP.SPRINK PO SCH ×2 (10:03→21:04)
--- NOTE | 2016-08-06 10:53 | Pulmonology Progress Note ---
<Henrique Cole - Last Filed: 08/06/16 16:19> Date of Encounter: 08/06/16 Time of Encounter: 09:00 Assessment and Plan (1) HCAP (healthcare-associated pneumonia) Current Visit: No Status: Acute 1. HCAP Neupogen 07/24/16 per onc. WBC 8.3, ANC 6.9. Cultures: Blood (-) x2, UA (-), sputum not collected (nonproductive cough), stool c. diff (+) - Continue vancomycin D3 - Continue zosyn D3 Surgery consulted; patient not a candidate for PEG tube. Patient not a candidate for NG tube given reapiratory failure requiring BiPap and current esophageal cancer. Patient not a candidate for TPN as he has active infections. Dietary options discussed with family 08/05/16. 2. NSTEMI Anticoagulation on fondiparinux Troponin peaked afternoon of 08/03 at 5.03. Now 1.75. Hb 7.4, down from 7.9 yesterday + 1u PRBC yesterday. - Transfuse 1u PRBC today 3. Clostridium difficile diarrhea CT abd/pelvis 08/03/16: There are mild air-fluid levels throughout the colon concerning for colitis. No obvious wall thickening or pericolonic inflammatory changes to suggest C. Difficile. - continue rectal tube - continue vancomycin RC day 2 - continue metronidazole IV day 2 4. Anemia Plan as above 5. DVT prophylaxis - continue fondiparinux Other: PUD prophylax: protonix (2) NSTEMI (non-ST elevated myocardial infarction) Current Visit: Yes Status: Acute Plan as above (3) Clostridium difficile diarrhea Current Visit: Yes Status: Acute Plan as above (4) Anemia Current Visit: Yes Status: Acute Qualifiers: Anemia type: unspecified type Qualified Code(s): D64.9 - Anemia, unspecified (5) DVT prophylaxis Current Visit: No Status: Chronic Subjective Principal diagnosis: HCAP Interval history: No acute events overnight. Family members express desire to have all labs repeated. I discussed with them the utility of daily lab checks, which were performed this morning. I also clarified with the daughter what do-not- resuscitate [id number] means; reaffirming the patient would be receiving full treatment until the event of cardiac arrest of pulmonary arrest, at which time we would begin comfort care measures. Objective PUL Vital signs: Last Vital Signs Temp 99.6 F 08/06/16 10:27 Pulse 131 08/06/16 10:27 Resp 16 08/06/16 10:27 BP 100/53 08/06/16 10:27 Pulse Ox 86 08/06/16 10:27 General appearance: no acute distress, asleep Eyes: nonicteric ENT: oropharynx dry Neck: supple Effort: normal Auscultation: bilateral: diminished breath sounds, rales Cardiovascular: other (sinus tachycardia) Gastrointestinal: normoactive bowel sounds, soft, non-tender, non-distended Integumentary: normal Extremities: no cyanosis, cool, other (mottling persists over bilateral LE. Dorsalis pedis and posterior tibial pulses thready bilaterally.) Musculoskeletal: no deformities unable to assess due to mental status Results - Laboratory Findings CBC and BMP: 08/06/16 03:02 08/06/16 03:02 PT/INR, D-dimer PT 16.5 Seconds (9.4-12.1) H 08/02/16 17:50 Abnormal lab findings: Abnormal lab results RBC 2.73 M/mcL (4.19-5.50) L 08/06/16 03:02 Hgb 7.4 g/dL (12.9-16.9) L 08/06/16 03:02 Hct 23.5 % (37.5-50.1) L 08/06/16 03:02 MCH 27.1 pg (28.0-33.3) L 08/06/16 03:02 MCHC 31.5 g/dL (31.6-35.5) L 08/06/16 03:02 RDW 19.4 % (11.5-14.5) H 08/06/16 03:02 Plt Count 128 K/mcL (140-400) L 08/06/16 03:02 Immature Gran % 6.5 % (0-4) H 08/06/16 03:02 Lymphocytes # 0.1 K/mcL (0.6-4.6) L 08/06/16 03:02 Nucleated RBCs/100 WBC 1.0 /100 WBC (0) H 08/06/16 03:02 Large Platelets Present (Not Present) A 08/04/16 03:30 Polychromasia 1+ (Not Present) A 08/02/16 17:50 Poikilocytosis 2+ (Not Present) A 08/06/16 03:02 Anisocytosis 2+ (Not Present) A 08/06/16 03:02 Microcytosis Present (Not Present) A 08/03/16 05:00 Macrocytosis Present (Not Present) A 08/03/16 05:00 Tear Drop Cells 1+ (Not Present) A 08/06/16 03:02 PT 16.5 Seconds (9.4-12.1) H 08/02/16 17:50 Potassium 2.9 mEq/L (3.5-4.5) L 08/06/16 03:02 Chloride 119 mEq/L (98-109) H 08/06/16 03:02 Carbon Dioxide 17 mEq/L (19-29) L 08/06/16 03:02 Glucose 180 mg/dL (70-99) H 08/06/16 03:02 POC Glucose 240 (58-89) H 08/06/16 07:53 Calculated Osmolality 302 (280-300) H 08/06/16 03:02 Calcium 8.2 mg/dL (8.6-10.8) L 08/06/16 03:02 Troponin I 1.75 ng/mL (0-0.03) H* 08/05/16 03:13 Albumin 2.4 g/dL (3.5-5.0) L 08/02/16 17:50 Globulin 3.8 g/dL (2.4-3.5) H 08/02/16 17:50 Albumin/Globulin Ratio 0.6 (1.1-2.2) L 08/02/16 17:50 Prealbumin 4.0 mg/dL (18.0-45.0) L 08/05/16 18:50 Urine Protein 30 mg/dL (Neg-Trace) H 08/02/16 18:15 Ur Squamous Epith Cells Many per lpf (None-Few) H 08/02/16 18:15 Stl C. diff Tox A/B PCR See reflex test (Not detect) A 08/03/16 04:50 - Clinical Findings Intake & Output: Intake & Output 08/05/16 08/06/16 08/06/16 23:59 07:59 15:59 Intake Total 200 / 200 404 / 404 500 / 500 Output Total 1600 / 1600 900 / 900 Balance -1400 / -1400 -496 / -496 500 / 500 Weight 83.7 kg Consult Discharge Plan - Plan Referrals: [place] Zaidi [Primary Care Provider] - <Luann Person - Last Filed: 08/06/16 18:22> Date of Encounter: 08/06/16 Objective PUL Vital signs: Last Vital Signs Temp 99.6 F 08/06/16 10:27 Pulse 131 08/06/16 11:40 Resp 16 08/06/16 11:00 BP 89/51 08/06/16 11:00 Pulse Ox 86 08/06/16 11:00 Results - Laboratory Findings CBC and BMP: 08/06/16 17:22 08/06/16 03:02 PT/INR, D-dimer PT 16.5 Seconds (9.4-12.1) H 08/02/16 17:50 Abnormal lab findings: Abnormal lab results RBC 2.73 M/mcL (4.19-5.50) L 08/06/16 03:02 Hgb 7.4 g/dL (12.9-16.9) L 08/06/16 03:02 Hct 23.5 % (37.5-50.1) L 08/06/16 03:02 MCH 27.1 pg (28.0-33.3) L 08/06/16 03:02 MCHC 31.5 g/dL (31.6-35.5) L 08/06/16 03:02 RDW 19.4 % (11.5-14.5) H 08/06/16 03:02 Plt Count 128 K/mcL (140-400) L 08/06/16 03:02 Immature Gran % 6.5 % (0-4) H 08/06/16 03:02 Lymphocytes # 0.1 K/mcL (0.6-4.6) L 08/06/16 03:02 Nucleated RBCs/100 WBC 1.0 /100 WBC (0) H 08/06/16 03:02 Large Platelets Present (Not Present) A 08/04/16 03:30 Polychromasia 1+ (Not Present) A 08/02/16 17:50 Poikilocytosis 2+ (Not Present) A 08/06/16 03:02 Anisocytosis 2+ (Not Present) A 08/06/16 03:02 Microcytosis Present (Not Present) A 08/03/16 05:00 Macrocytosis Present (Not Present) A 08/03/16 05:00 Tear Drop Cells 1+ (Not Present) A 08/06/16 03:02 PT 16.5 Seconds (9.4-12.1) H 08/02/16 17:50 Potassium 2.9 mEq/L (3.5-4.5) L 08/06/16 03:02 Chloride 119 mEq/L (98-109) H 08/06/16 03:02 Carbon Dioxide 17 mEq/L (19-29) L 08/06/16 03:02 Glucose 180 mg/dL (70-99) H 08/06/16 03:02 POC Glucose 240 (58-89) H 08/06/16 07:53 Calculated Osmolality 302 (280-300) H 08/06/16 03:02 Calcium 8.2 mg/dL (8.6-10.8) L 08/06/16 03:02 Troponin I 1.75 ng/mL (0-0.03) H* 08/05/16 03:13 Albumin 2.4 g/dL (3.5-5.0) L 08/02/16 17:50 Globulin 3.8 g/dL (2.4-3.5) H 08/02/16 17:50 Albumin/Globulin Ratio 0.6 (1.1-2.2) L 08/02/16 17:50 Prealbumin 4.0 mg/dL (18.0-45.0) L 08/05/16 18:50 Urine Protein 30 mg/dL (Neg-Trace) H 08/02/16 18:15 Ur Squamous Epith Cells Many per lpf (None-Few) H 08/02/16 18:15 Stl C. diff Tox A/B PCR See reflex test (Not detect) A 08/03/16 04:50 - Clinical Findings Intake & Output: Intake & Output 08/05/16 08/06/16 08/06/16 23:59 07:59 15:59 Intake Total 200 / 200 404 / 404 500 / 500 Output Total 1600 / 1600 900 / 900 Balance -1400 / -1400 -496 / -496 500 / 500 Weight 83.7 kg - Attending Attestation I examined this patient and my medical decision-making was reviewed with the SOLAR SALES MANAGER/PA/Advanced Practice Nurse/Resident Physician. I agree with the documented findings, disposition and treatment plan as described except to the extent set forth below. Patient seen and examined. Labs, radiology, chart personally reviewed. 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 I have discussed with them and they understand his condition deteriorate without noninvasive ventilation. Cardiovascular: Patient remained tachycardic which I suspect related to underlying sepsis GI: Continue TPN at this time Heme: DVT prophylaxis per routine ID: Continue antibiotics and plan to de-escalation Renal; urine out put and renal funtion reviewed Endorcine: blood glucose is monitored Lines: all lines checked and no evidence of infections Skin: skin care to prevent pressure ulcers per nursing routine care
[2016-08-06] MEDS: Albuterol 2.5 MG/3 ML NEBULIZER IH SCH ×4 (11:06→23:39)
[2016-08-06] MEDS: Pantoprazole 40 MG VIAL IVP SCH (12:47)
[2016-08-06] MEDS: Piperacillin/Tazobactam 3.375 GM in D5% in Water (Mini-Bag+) 100 ML IVPB SCH ×2 (12:47→16:38)
[2016-08-06] MEDS: Ringers Solution, Lactated 1,000 ML IVC SCH ×2 (15:54→16:05)
[2016-08-06] MEDS ORDERED: Clinimix E 5%-15% SOLUTION 2,000 ML with MVI, adult with vitamin K 10 ML IVC SCH (17:00)
[2016-08-06 17:37] LABS: Hematocrit 32.1 % (37.5-50.1)
[2016-08-06 17:38] LABS: Hemoglobin 10.2 g/dL (12.9-16.9)
[2016-08-06 18:15] LABS: Ionized Calcium 1.25 mmol/L (1.15-1.35)
[2016-08-06 18:54] LABS: Magnesium 2.1 mg/dL (1.6-2.6)
[2016-08-06 20:06] LABS: Potassium 3.8 mEq/L (3.5-4.5)
[2016-08-06] MEDS: Melatonin 3 MG TABLET PO SCH (21:04)
[2016-08-06] MEDS: Mirtazapine 15 MG TABLET PO SCH (21:04)
[2016-08-07] MEDS: Piperacillin/Tazobactam 3.375 GM in D5% in Water (Mini-Bag+) 100 ML IVPB SCH ×2 (00:01→08:51)
[2016-08-07] MEDS: Albuterol 2.5 MG/3 ML NEBULIZER IH SCH ×3 (04:02→11:24)
[2016-08-07] MEDS: *HR* Morphine 2 MG/ML SYRINGE IVP PRN ×2 (04:24→12:54)
[2016-08-07] MEDS: MetroNIDAZOLE 500 MG/100 ML 500 MG/100 ML BAG IVPB SCH (05:02)
[2016-08-07] MEDS: *HR* Fondaparinux 2.5 MG/0.5 ML SYRINGE SQ SCH (05:02)
[2016-08-07 07:39] LABS: Hematocrit 32.6 % (37.5-50.1); Hemoglobin 9.9 g/dL (12.9-16.9); Mean Corpuscular HGB Conc 30.4 g/dL (31.6-35.5); Mean Corpuscular Hemoglobin 27.9 pg (28.0-33.3); Mean Corpuscular Volume 91.8 fL (83.0-100.0); Mean Platelet Volume 11.7 fL (9.4-12.4); Nucleated Red Blood Cells 0.9 /100 WBC (0); Platelet Count 147 K/mcL (140-400); Red Blood Count 3.55 M/mcL (4.19-5.50); Red Cell Distribution Width 19.4 % (11.5-14.5)
[2016-08-07] MEDS: Budesonide/Formoterol 160/4.5 MDI IH SCH (07:46)
[2016-08-07] MEDS ORDERED: Ondansetron 4 MG/2 ML VIAL IVP PRN (07:53)
[2016-08-07] MEDS ORDERED: *HR* Dextrose 50 % in Water (Syg) 50 ML SYRINGE IVP PRN (07:54)
[2016-08-07] MEDS ORDERED: D5% in Water 1,000 ML IVC PRN (07:54)
[2016-08-07] MEDS ORDERED: Insulin DETEMIR 100 UNIT/ML X5UNITS SQ SCH (08:00)
[2016-08-07] MEDS: Pantoprazole 40 MG VIAL IVP SCH (08:51)
[2016-08-07] MEDS: Insulin LISPRO 300 UNITS/3 ML VIAL SQ SCH ×2 (08:54→12:34)
[2016-08-07 09:07] LABS: Eosinophils # 0.5 K/mcL (0.0-0.6); Lymphocytes # 0.5 K/mcL (0.6-4.6); Neutrophils # 9.7 K/mcL (1.6-8.9)
[2016-08-07 09:09] LABS: Platelet Estimate Normal (Normal)
[2016-08-07] MEDS: Lactobacillus 1 EACH CAP.SPRINK PO SCH (09:09)
[2016-08-07] MEDS: Norepinephrine 4 MG in D5% in Water 250 ML IVC SCH (09:13)
[2016-08-07 09:31] LABS: Calcium 8.6 mg/dL (8.6-10.8); Magnesium 2.2 mg/dL (1.6-2.6); Potassium 4.3 mEq/L (3.5-4.5)
--- NOTE | 2016-08-07 09:34 | Pulmonology Progress Note ---
<Henrique Cole - Last Filed: 08/07/16 09:31> Date of Encounter: 08/07/16 Time of Encounter: 08:00 Assessment and Plan (1) Clostridium difficile diarrhea Current Visit: Yes Status: Acute 1. Clostridium difficile diarrhea Sirs (+) on intake: HR >90, WBC < 4000 Severe sepsis from colonic source. End organ damage: respiratory failure ( required O2), acute kidney injury, altered mentation. O2 on high flow; weaned from BiPap. Renal function improving. Patient was confused, repeating it was 1976; now unresponsive. Was on Vanc, Zosyn IV discharged 07/12/16 and subsequently levofloxacin outpatient. Cultures: Blood (-) x2, UA (-), sputum not collected (nonproductive cough), stool c. diff (+) CT abd/pelvis 08/03/16: There are mild air-fluid levels throughout the colon concerning for colitis. No obvious wall thickening or pericolonic inflammatory changes to suggest C. Difficile. Neupogen 07/24/16 per onc. WBC 12.1. Patient has not responded to his family in 24hrs. - continue rectal tube - continue vancomycin enema day 3 - continue metronidazole IV day 3 - Continue TPN - Continue electrolyte protocol - Continue duoneb, symbicort Surgery consulted; patient not a candidate for PEG tube. Patient not a candidate for NG tube given reapiratory failure requiring BiPap and current esophageal cancer. Patient not a candidate for TPN as he has active infections. Dietary options discussed with family 08/05/16. 2. NSTEMI Anticoagulation on fondiparinux Troponin peaked afternoon of 08/03 at 5.03, trending down. Hb 9.9. Goal Hb >8. - Continue to monitor 3. Esophageal cancer Dx May 2016 Onc: Dr. Weinstein - Avoid esophageal tubing 4. Anemia Plan as above 5. Hyperglycemia - Begin accucheck Q6 - Begin SS insulin, low scale 6. DVT prophylaxis - continue fondiparinux Other: PUD prophylax: protonix (2) HCAP (healthcare-associated pneumonia) Current Visit: No Status: Suspected Unlikely; source of initial sepsis = C. Diff colitis in setting of chemotherapy for esophageal cancer. (3) NSTEMI (non-ST elevated myocardial infarction) Current Visit: Yes Status: Acute Plan as above (4) Esophageal cancer Current Visit: Yes Status: Acute Plan as above. Qualifiers: Malignant neoplasm of esophagus location: unspecified location Qualified Code(s): C15.9 - Malignant neoplasm of esophagus, unspecified (5) Anemia Current Visit: Yes Status: Acute Plan as above. Qualifiers: Anemia type: unspecified type Qualified Code(s): D64.9 - Anemia, unspecified (6) Hyperglycemia Current Visit: Yes Status: Acute Plan as above. (7) DVT prophylaxis Current Visit: No Status: Chronic Plan as above. Subjective Principal diagnosis: HCAP Interval history: No acute events overnight. Discussed lab results with the family. They questioned if he was getting better; he is stable but critical. His current status is due more to outside influence (ie. medications, etc) than inside influence (i.e. immune system, self-regulation, etc). I re-iterated we are at maximal medical therapy. Discussed with the family transfer to a larger room on the medical floor for their comfort. Daughter preferred to stay in the ICU. Objective PUL Vital signs: Last Vital Signs Temp 98.0 F 08/07/16 07:00 Pulse 117 08/07/16 09:00 Resp 21 08/07/16 09:00 BP 79/51 08/07/16 09:00 Pulse Ox 93 08/07/16 09:00 General appearance: no acute distress, asleep Eyes: nonicteric ENT: oropharynx dry Neck: supple Effort: normal Auscultation: bilateral: clear, diminished breath sounds Cardiovascular: regular rate and rhythm Gastrointestinal: hypoactive bowel sounds, soft, non-tender, non-distended Integumentary: other (motteling continues on BL lower extremities) Extremities: edema (trace bilateral pedal edema), other (Posterial tibial pulses thready, skin warm and dry.) Musculoskeletal: no deformities unable to assess due to mental status Results - Laboratory Findings CBC and BMP: 08/07/16 04:00 08/06/16 17:22 PT/INR, D-dimer PT 16.5 Seconds (9.4-12.1) H 08/02/16 17:50 Abnormal lab findings: Abnormal lab results WBC 12.1 K/mcL (4.3-11.1) H 08/07/16 04:00 RBC 3.55 M/mcL (4.19-5.50) L 08/07/16 04:00 Hgb 9.9 g/dL (12.9-16.9) L 08/07/16 04:00 Hct 32.6 % (37.5-50.1) L 08/07/16 04:00 MCH 27.9 pg (28.0-33.3) L 08/07/16 04:00 MCHC 30.4 g/dL (31.6-35.5) L 08/07/16 04:00 RDW 19.4 % (11.5-14.5) H 08/07/16 04:00 Immature Gran % 6.5 % (0-4) H 08/06/16 03:02 Myelocytes % 4.0 % (0) H 08/07/16 04:00 Neutrophils # 9.7 K/mcL (1.6-8.9) H 08/07/16 04:00 Lymphocytes # 0.5 K/mcL (0.6-4.6) L 08/07/16 04:00 Nucleated RBCs/100 WBC 0.9 /100 WBC (0) H 08/07/16 04:00 Large Platelets Present (Not Present) A 08/04/16 03:30 Polychromasia 1+ (Not Present) A 08/02/16 17:50 Poikilocytosis 2+ (Not Present) A 08/06/16 03:02 Anisocytosis 2+ (Not Present) A 08/06/16 03:02 Microcytosis Present (Not Present) A 08/03/16 05:00 Macrocytosis Present (Not Present) A 08/03/16 05:00 Tear Drop Cells 1+ (Not Present) A 08/06/16 03:02 PT 16.5 Seconds (9.4-12.1) H 08/02/16 17:50 Chloride 119 mEq/L (98-109) H 08/06/16 03:02 Carbon Dioxide 17 mEq/L (19-29) L 08/06/16 03:02 Glucose 180 mg/dL (70-99) H 08/06/16 03:02 POC Glucose 267 (58-89) H 08/07/16 06:57 Calculated Osmolality 302 (280-300) H 08/06/16 03:02 Calcium 8.2 mg/dL (8.6-10.8) L 08/06/16 03:02 Troponin I 1.75 ng/mL (0-0.03) H* 08/05/16 03:13 Albumin 2.4 g/dL (3.5-5.0) L 08/02/16 17:50 Globulin 3.8 g/dL (2.4-3.5) H 08/02/16 17:50 Albumin/Globulin Ratio 0.6 (1.1-2.2) L 08/02/16 17:50 Prealbumin 4.0 mg/dL (18.0-45.0) L 08/05/16 18:50 Urine Protein 30 mg/dL (Neg-Trace) H 08/02/16 18:15 Ur Squamous Epith Cells Many per lpf (None-Few) H 08/02/16 18:15 Stl C. diff Tox A/B PCR See reflex test (Not detect) A 08/03/16 04:50 - Clinical Findings Intake & Output: Intake & Output 08/06/16 08/07/16 08/07/16 23:59 07:59 15:59 Intake Total 2795 / 2795 450 / 450 Output Total 340 / 340 80 / 80 Balance 2455 / 2455 370 / 370 Weight 84 kg Consult Discharge Plan - Plan Referrals: [place] Zaidi [Primary Care Provider] - <Luann Person - Last Filed: 08/07/16 10:15> Date of Encounter: 08/07/16 Objective PUL Vital signs: Last Vital Signs Temp 98.0 F 08/07/16 07:00 Pulse 117 08/07/16 09:00 Resp 21 08/07/16 09:00 BP 79/51 08/07/16 09:00 Pulse Ox 93 08/07/16 09:00 Results - Laboratory Findings CBC and BMP: 08/07/16 04:00 08/07/16 09:15 PT/INR, D-dimer PT 16.5 Seconds (9.4-12.1) H 08/02/16 17:50 Abnormal lab findings: Abnormal lab results WBC 12.1 K/mcL (4.3-11.1) H 08/07/16 04:00 RBC 3.55 M/mcL (4.19-5.50) L 08/07/16 04:00 Hgb 9.9 g/dL (12.9-16.9) L 08/07/16 04:00 Hct 32.6 % (37.5-50.1) L 08/07/16 04:00 MCH 27.9 pg (28.0-33.3) L 08/07/16 04:00 MCHC 30.4 g/dL (31.6-35.5) L 08/07/16 04:00 RDW 19.4 % (11.5-14.5) H 08/07/16 04:00 Immature Gran % 6.5 % (0-4) H 08/06/16 03:02 Myelocytes % 4.0 % (0) H 08/07/16 04:00 Neutrophils # 9.7 K/mcL (1.6-8.9) H 08/07/16 04:00 Lymphocytes # 0.5 K/mcL (0.6-4.6) L 08/07/16 04:00 Nucleated RBCs/100 WBC 0.9 /100 WBC (0) H 08/07/16 04:00 Large Platelets Present (Not Present) A 08/04/16 03:30 Polychromasia 1+ (Not Present) A 08/02/16 17:50 Poikilocytosis 2+ (Not Present) A 08/06/16 03:02 Anisocytosis 2+ (Not Present) A 08/06/16 03:02 Microcytosis Present (Not Present) A 08/03/16 05:00 Macrocytosis Present (Not Present) A 08/03/16 05:00 Tear Drop Cells 1+ (Not Present) A 08/06/16 03:02 PT 16.5 Seconds (9.4-12.1) H 08/02/16 17:50 Chloride 117 mEq/L (98-109) H 08/07/16 09:15 Carbon Dioxide 14 mEq/L (19-29) L 08/07/16 09:15 BUN 30 mg/dL (8-26) H D 08/07/16 09:15 Creatinine 2.10 mg/dL (0.72-1.25) H D 08/07/16 09:15 Est GFR ( Amer) 37 (> 60) L 08/07/16 09:15 Est GFR (Non-Af Amer) 31 (> 60) L 08/07/16 09:15 Glucose 288 mg/dL (70-99) H 08/07/16 09:15 POC Glucose 267 (58-89) H 08/07/16 06:57 Calculated Osmolality 307 (280-300) H 08/07/16 09:15 Phosphorus 5.8 mg/dL (2.3-4.7) H D 08/07/16 09:15 Troponin I 1.75 ng/mL (0-0.03) H* 08/05/16 03:13 Albumin 2.4 g/dL (3.5-5.0) L 08/02/16 17:50 Globulin 3.8 g/dL (2.4-3.5) H 08/02/16 17:50 Albumin/Globulin Ratio 0.6 (1.1-2.2) L 08/02/16 17:50 Prealbumin 4.0 mg/dL (18.0-45.0) L 08/05/16 18:50 Urine Protein 30 mg/dL (Neg-Trace) H 08/02/16 18:15 Ur Squamous Epith Cells Many per lpf (None-Few) H 08/02/16 18:15 Stl C. diff Tox A/B PCR See reflex test (Not detect) A 08/03/16 04:50 - Clinical Findings Intake & Output: Intake & Output 08/06/16 08/07/16 08/07/16 23:59 07:59 15:59 Intake Total 2795 / 2795 450 / 450 Output Total 340 / 340 80 / 80 Balance 2455 / 2455 370 / 370 Weight 84 kg - Attending Attestation I examined this patient and my medical decision-making was reviewed with the INDEPENDENT INSURANCE ADJUSTER/PA/Advanced Practice Nurse/Resident Physician. I agree with the documented findings, disposition and treatment plan as described except to the extent set forth below. Patient seen and examined. Labs, radiology, chart personally reviewed. 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 I have offered them to transfer patient to a palliative care., However they prefer to keep him in ICU.
[2016-08-07 09:44] LABS: Phosphorous 5.8 mg/dL (2.3-4.7)
[2016-08-07] MEDS: Vancomycin 500 MG, Sodium Chloride IRRigation 250 ML RC SCH (11:06)
[2016-08-07 12:33] VITALS: BP 77/50
[2016-08-07] MEDS: *HR* LORazepam 2 MG/ML VIAL IVP PRN (12:54)
--- NOTE | 2016-08-07 13:32 | Discharge Summary ---
<Henrique Cole - Last Filed: 08/07/16 13:28> Date of Encounter: 08/07/16 Time of Encounter: 13:28 - Discharge Diagnosis (1) Clostridium difficile diarrhea Priority: Primary Status: Acute (2) HCAP (healthcare-associated pneumonia) Priority: Secondary Status: Acute (3) NSTEMI (non-ST elevated myocardial infarction) Priority: Secondary Status: Acute (4) Esophageal cancer Priority: Secondary Status: Chronic Qualifiers: Malignant neoplasm of esophagus location: unspecified location Qualified Code(s): C15.9 - Malignant neoplasm of esophagus, unspecified (5) Anemia Priority: Secondary Status: Acute Qualifiers: Anemia type: unspecified type Qualified Code(s): D64.9 - Anemia, unspecified (6) Hyperglycemia Priority: Secondary Status: Acute - Discharge Medications Home Medications: Albuterol Sulfate [Albuterol Inhaler] 2 puff IH Q4H PRN 12/08/14 [History] Cholecalciferol (Vitamin D3) [Vitamin D3] 2,000 unit PO QAM 12/08/14 [History] Clopidogrel [Plavix] 75 mg PO QAM 12/08/14 [History] Furosemide [Lasix] 40 mg PO DAILY 09/01/15 [History] Isosorbide MONOnitrate (24 HR) [Imdur] 30 mg PO DAILY 02/25/16 [History] Nitroglycerin 0.4 mg SL Q5MIN PRN 02/25/16 [History] Spironolactone [Aldactone] 12.5 mg PO QAM 02/25/16 [History] Budesonide/Formoterol 160/4.5 [Symbicort 160/4.5] 2 puff IH BIDR 05/26/16 [ History] Omeprazole [PriLOSEC] 20 mg PO BID 05/26/16 [History] Metoprolol [Lopressor] 12.5 mg PO BID 06/13/16 [History] Prochlorperazine Maleate [Compazine] 10 mg PO Q6HR PRN #40 tablet 06/15/16 [Rx] Ondansetron [Zofran] 8 mg PO Q8HR PRN #60 tablet 06/24/16 [Rx] Magic Mouthwash [Magic Mouthwash BLM] 10 ml PO Q3-4H PRN #240 ml 07/27/16 [Rx] Loperamide [Imodium] 2 mg PO BID #60 capsule 07/29/16 [Rx] OxyCODONE Immed Rel [Roxicodone 5 MG] 5 mg PO Q8HR PRN #90 tablet 07/29/16 [Rx] Allopurinol [Zyloprim 100 MG] 100 mg PO DAILY 08/02/16 [History] Aspirin 81 mg PO DAILY 08/02/16 [History] Insulin ASPART [NovoLOG] 2 - 12 unit SQ ACHS 08/02/16 [History] Lactobacillus Acidophilus [Acidophilus] 1 each PO BID 08/02/16 [History] Lactose-Reduced Food [Ensure Plus] 237 ml PO TID 08/02/16 [History] Levofloxacin [Levaquin] 750 mg PO DAILY #5 tablet 08/02/16 [Rx] Lidocaine/Prilocaine CREAM [Emla] 5 gm TP MOTUWETHFR 08/02/16 [History] Magnesium Hydroxide [Milk of Magnesia] 2,400 mg PO DAILY PRN 08/02/16 [History] Melatonin 5 mg PO HS 08/02/16 [History] Mirtazapine 7.5 mg PO HS 08/02/16 [History] Rosuvastatin Calcium [Crestor] 10 mg PO HS 08/02/16 [History] Sucralfate [Carafate] 1 gm PO ACHS 08/02/16 [History] Allergies/Adverse Reactions: Allergies No Known Allergies Allergy (Verified 08/02/16 17:40) Procedures and tests throughout hospitalization: Microbiology 08/02/16 19:48 Blood Culture - Preliminary Peripheral Venipuncture No growth. 08/02/16 19:48 Blood Culture - Preliminary Peripheral Venipuncture No growth. 08/02/16 22:34 Throat Culture - Final Throat No Group A Beta Streptococcus isolated. Group A Streptococcus Rapid Screen - Final Chest X-Ray 08/02/16 17:34 IMPRESSION: No significant interval change with persistent opacities in the right upper lobe, left mid lung and right lung base. D/ / 08/02/2016 18:22:49 Nuzhat Chang MD / neela Interpreting Provider: Nuzhat Chang MD Chest CTA 08/03/16 02:41 IMPRESSION: 1. Limited study with no central or proximal segmental pulmonary embolus. Beyond the segmental level the study is considered nondiagnostic for the evaluation of pulmonary embolus. 2. Progressive bilateral lower lobe pneumonia. 3. Improving left upper lobe pneumonia. D/ / Neo Pollard MD / Neo Pollard MD Interpreting Provider: Neo Pollard MD X-Ray 08/03/16 08:42 IMPRESSION: No air-filled dilated loops of bowel. D/ / Latonya Buitrago MD / Latonya Buitrago MD Interpreting Provider: Latonya Buitrago MD Abdomen/Pelvis CT 08/03/16 13:00 IMPRESSION: There are mild air-fluid levels throughout the colon concerning for colitis. No obvious wall thickening or pericolonic inflammatory changes to suggest C. Difficile. D/ / Lucy Coley MD / Lucy Coley MD Interpreting Provider: Lucy Coley MD Videofluoroscopic Swallow 08/04/16 14:09 IMPRESSION: Delayed swallowing with significant residue seen within the vallecula, with no penetration or aspiration identified. Please see separate speech pathology report for full discussion of findings and recommendations. D/ / Boo Samuel MD / Boo Samuel MD Interpreting Provider: Boo Samuel MD Labs on day of discharge: Labs from last 24 hours 08/07/16 08/07/16 08/07/16 11:38 09:15 09:00 WBC RBC Hgb Hct MCV MCH MCHC RDW Plt Count MPV Seg Neutrophils % Lymphocytes % Monocytes % Eosinophils % Myelocytes % Neutrophils # Lymphocytes # Monocytes # Eosinophils # Nucleated RBCs/100 WBC Platelet Estimate Sodium 140 Potassium 4.3 Chloride 117 H Carbon Dioxide 14 L BUN 30 H D Creatinine 2.10 H D Est GFR ( Amer) 37 L Est GFR (Non-Af Amer) 31 L BUN/Creatinine Ratio 14 Glucose 288 H POC Glucose 264 H Calculated Osmolality 307 H Calcium 8.6 Ionized Calcium 1.24 Phosphorus 5.8 H D Magnesium 2.2 Specimen Rejected Blood Type Antibody Screen Crossmatch 08/07/16 08/07/16 08/07/16 06:57 04:00 04:00 WBC 12.1 H RBC 3.55 L Hgb 9.9 L Hct 32.6 L MCV 91.8 MCH 27.9 L MCHC 30.4 L RDW 19.4 H Plt Count 147 MPV 11.7 Seg Neutrophils % 80.0 Lymphocytes % 4.0 Monocytes % 8.0 Eosinophils % 4.0 Myelocytes % 4.0 H Neutrophils # 9.7 H Lymphocytes # 0.5 L Monocytes # 1.0 Eosinophils # 0.5 Nucleated RBCs/100 WBC 0.9 H Platelet Estimate Normal Sodium Potassium Chloride Carbon Dioxide BUN Creatinine Est GFR ( Amer) Est GFR (Non-Af Amer) BUN/Creatinine Ratio Glucose POC Glucose 267 H Calculated Osmolality Calcium Ionized Calcium Phosphorus Magnesium Specimen Rejected Miscellaneous Blood Type Antibody Screen Crossmatch 08/07/16 08/06/16 08/06/16 00:20 20:11 17:22 WBC RBC Hgb Hct MCV MCH MCHC RDW Plt Count MPV Seg Neutrophils % Lymphocytes % Monocytes % Eosinophils % Myelocytes % Neutrophils # Lymphocytes # Monocytes # Eosinophils # Nucleated RBCs/100 WBC Platelet Estimate Sodium Potassium 3.8 Chloride Carbon Dioxide BUN Creatinine Est GFR ( Amer) Est GFR (Non-Af Amer) BUN/Creatinine Ratio Glucose POC Glucose 229 H Calculated Osmolality Calcium Ionized Calcium 1.25 Phosphorus Magnesium 2.1 Specimen Rejected Blood Type O POSITIVE Antibody Screen NEGATIVE Crossmatch See Detail 08/06/16 08/03/16 17:22 14:20 WBC RBC Hgb 10.2 L D Hct 32.1 L MCV MCH MCHC RDW Plt Count MPV Seg Neutrophils % Lymphocytes % Monocytes % Eosinophils % Myelocytes % Neutrophils # Lymphocytes # Monocytes # Eosinophils # Nucleated RBCs/100 WBC Platelet Estimate Sodium Potassium Chloride Carbon Dioxide BUN Creatinine Est GFR ( Amer) Est GFR (Non-Af Amer) BUN/Creatinine Ratio Glucose POC Glucose Calculated Osmolality Calcium Ionized Calcium Phosphorus Magnesium Specimen Rejected Blood Type Antibody Screen Crossmatch See Detail - Impressions ITS Impressions KUB X-Ray 08/03/16 08:42 IMPRESSION: No air-filled dilated loops of bowel. D/ / Latonya Buitrago MD / Latonya Buitrago MD Interpreting Provider: Latonya Buitrago MD Abdomen/Pelvis CT 08/03/16 13:00 IMPRESSION: There are mild air-fluid levels throughout the colon concerning for colitis. No obvious wall thickening or pericolonic inflammatory changes to suggest C. Difficile. D/ / Lucy Coley MD / Lucy Coley MD Interpreting Provider: Lucy Coley MD Videofluoroscopic Swallow 08/04/16 14:09 IMPRESSION: Delayed swallowing with significant residue seen within the vallecula, with no penetration or aspiration identified. Please see separate speech pathology report for full discussion of findings and recommendations. D/ / Boo Samuel MD / Boo Samuel MD Interpreting Provider: Boo Samuel MD Date of admission: 08/03/16 08:24 Primary care physician: [place] Zaidi Consults: 08/04/16 07:47 Consult to Palliative Care [CONS] Stat Comment: Consulting Provider: Palliative Care [place] 08/04/16 12:06 Consult to Speech Therapy [CONS] Routine Comment: Evaluate, develop and implement POC Reason for Consult: swallow evaluation, for diet order Call Completed: No 08/04/16 17:05 Consult to Surgery [CONS] Stat Consulting Provider: Surgery [facility] Reason for Consult: PEG tube placement Time Notified: 17:15 Call Completed: Yes Discharging clinician: Henrique Cole Anticipated date of discharge: 08/07/16 - Patient Status Disposition: - Discharge Instructions Follow Up With: [place] Zaidi [Primary Care Provider] - - Hospital Course Hospital course: Mr. Angel is a 80 year old male, presented with neutropenic fever. Was subsequently diagnosed with severe sepsis with clostridium difficile positive stool cultures, NSTEMI, confusion, anemia, and initial suspicion of HCAP vs aspiration pneumonia. Was undergoing chemotherapy for esophageal cancer, diagnosed May 2016. Patient's family collectively decided on code status of DNR -CCA-DNI. Maximal medical therapy was continued and patient clinically continued to slowly deteriorate. Late this morning (11:30) he began having prolonged periods of apnea and apneic episodes increased in duration and frequency. Only his daughter Lucy was at bedside. After discussion, she choose to apply BiPap and call family to bedside. 12:52 Family bedside: Son Marco, Son Anup, Daughter Lucy, Sister, ex-. All agree to remove BiPap and withdraw care. They choose no supplemental oxygen, no further medication with the exception of comfort medications. 12:54 Morphine and Ativan given, BiPap mask removed. Patient left on monitor, all alarms silenced, monitor turned away from family. 13:24 Patient . Nursing notes no cardiac sounds, no pulmonary sounds, no palpable pulse, skin cool. Family bedside. - Time Spent with Patient Total time spent providing and/or coordinating discharge services: Greater than 30 minutes Physical Examination Vital Signs: Vital Signs, Last 4 Hours Temp Pulse Resp BP Pulse Ox 08/07/16 12:00 119 20 77/50 94 08/07/16 11:35 97.7 F 08/07/16 11:31 121 08/07/16 11:24 20 94 08/07/16 11:00 121 15 86/51 96 08/07/16 10:00 121 21 84/50 93 TOD 13:24 Per nursing: No heart sounds, no pulmonary sounds, pulses non-palpable. General appearance: other () <Luann Person - Last Filed: 08/07/16 18:46> Date of Encounter: 08/07/16 Labs on day of discharge: Labs from last 24 hours 08/07/16 08/07/16 08/07/16 11:38 09:15 09:00 WBC RBC Hgb Hct MCV MCH MCHC RDW Plt Count MPV Seg Neutrophils % Lymphocytes % Monocytes % Eosinophils % Myelocytes % Neutrophils # Lymphocytes # Monocytes # Eosinophils # Nucleated RBCs/100 WBC Platelet Estimate Sodium 140 Potassium 4.3 Chloride 117 H Carbon Dioxide 14 L BUN 30 H D Creatinine 2.10 H D Est GFR ( Amer) 37 L Est GFR (Non-Af Amer) 31 L BUN/Creatinine Ratio 14 Glucose 288 H POC Glucose 264 H Calculated Osmolality 307 H Calcium 8.6 Ionized Calcium 1.24 Phosphorus 5.8 H D Magnesium 2.2 Specimen Rejected Blood Type Antibody Screen Crossmatch 08/07/16 08/07/16 08/07/16 06:57 04:00 04:00 WBC 12.1 H RBC 3.55 L Hgb 9.9 L Hct 32.6 L MCV 91.8 MCH 27.9 L MCHC 30.4 L RDW 19.4 H Plt Count 147 MPV 11.7 Seg Neutrophils % 80.0 Lymphocytes % 4.0 Monocytes % 8.0 Eosinophils % 4.0 Myelocytes % 4.0 H Neutrophils # 9.7 H Lymphocytes # 0.5 L Monocytes # 1.0 Eosinophils # 0.5 Nucleated RBCs/100 WBC 0.9 H Platelet Estimate Normal Sodium Potassium Chloride Carbon Dioxide BUN Creatinine Est GFR ( Amer) Est GFR (Non-Af Amer) BUN/Creatinine Ratio Glucose POC Glucose 267 H Calculated Osmolality Calcium Ionized Calcium Phosphorus Magnesium Specimen Rejected Miscellaneous Blood Type Antibody Screen Crossmatch 08/07/16 08/06/16 08/06/16 00:20 20:11 17:22 WBC RBC Hgb Hct MCV MCH MCHC RDW Plt Count MPV Seg Neutrophils % Lymphocytes % Monocytes % Eosinophils % Myelocytes % Neutrophils # Lymphocytes # Monocytes # Eosinophils # Nucleated RBCs/100 WBC Platelet Estimate Sodium Potassium 3.8 Chloride Carbon Dioxide BUN Creatinine Est GFR ( Amer) Est GFR (Non-Af Amer) BUN/Creatinine Ratio Glucose POC Glucose 229 H Calculated Osmolality Calcium Ionized Calcium 1.25 Phosphorus Magnesium 2.1 Specimen Rejected Blood Type O POSITIVE Antibody Screen NEGATIVE Crossmatch See Detail 08/03/16 14:20 WBC RBC Hgb Hct MCV MCH MCHC RDW Plt Count MPV Seg Neutrophils % Lymphocytes % Monocytes % Eosinophils % Myelocytes % Neutrophils # Lymphocytes # Monocytes # Eosinophils # Nucleated RBCs/100 WBC Platelet Estimate Sodium Potassium Chloride Carbon Dioxide BUN Creatinine Est GFR ( Amer) Est GFR (Non-Af Amer) BUN/Creatinine Ratio Glucose POC Glucose Calculated Osmolality Calcium Ionized Calcium Phosphorus Magnesium Specimen Rejected Blood Type Antibody Screen Crossmatch See Detail - Impressions ITS Impressions KUB X-Ray 08/03/16 08:42 IMPRESSION: No air-filled dilated loops of bowel. D/ / Latonya Buitrago MD / Latonya Buitrago MD Interpreting Provider: Latonya Buitrago MD Abdomen/Pelvis CT 08/03/16 13:00 IMPRESSION: There are mild air-fluid levels throughout the colon concerning for colitis. No obvious wall thickening or pericolonic inflammatory changes to suggest C. Difficile. D/ / Lucy Coley MD / Lucy Coley MD Interpreting Provider: Lucy Coley MD Videofluoroscopic Swallow 08/04/16 14:09 IMPRESSION: Delayed swallowing with significant residue seen within the vallecula, with no penetration or aspiration identified. Please see separate speech pathology report for full discussion of findings and recommendations. D/ / Boo Samuel MD / Boo Samuel MD Interpreting Provider: Boo Samuel MD Date of admission: 08/03/16 08:24 Primary care physician: [place] Zaidi Consults: 08/04/16 07:47 Consult to Palliative Care [CONS] Stat Comment: Consulting Provider: Palliative Care [place] 08/04/16 12:06 Consult to Speech Therapy [CONS] Routine Comment: Evaluate, develop and implement POC Reason for Consult: swallow evaluation, for diet order Call Completed: No 08/04/16 17:05 Consult to Surgery [CONS] Stat Consulting Provider: Vicki [facility] Reason for Consult: PEG tube placement Time Notified: 17:15 Call Completed: Yes - Hospital Course Hospital course: Mr. Angel is a 80 year old male - Time Spent with Patient Total time spent providing and/or coordinating discharge services: - Attending Attestation I examined this patient and my medical decision-making was reviewed with the UNDERGROUND MINER/PA/Advanced Practice Nurse/Resident Physician. I agree with the documented findings, disposition and treatment plan as described except to the extent set forth below. Patient with multiple medical problems and extremely poor prognosis. Patient was getting worse and family at bedside. Patient today and answered all family's questions.
[2016-08-07] MEDS ORDERED: Aminoglycoside Consult 1 EACH MC ONE (14:14)
[2016-08-07] MEDS ORDERED: Clinimix E 5%-15% SOLUTION 2,000 ML with MVI, adult with vitamin K 10 ML IVC SCH (17:00)
== END 2016-08-07 14:15 | disposition expired | DRG 871 ==
LOC: EMEROO 17:13 → 3ANU 17:13 → 2ANU 19:26 → ICNU 08-03 08:23
PROVIDERS: ADMIT Internal Medicine; ATTEND Internal Medicine